=== PATIENT | male | born 1945 | race Hispanic/Latino ===

== ENCOUNTER 2019-03-25 09:32 | Emergency (ER) | payer MEDICARE ==
[2019-03-25 10:06] LABS: #Eosinphils 0.1 thou/uL (0.0-0.7); #Lymphocytes 0.4 thou/uL (1.20-3.40); #Monocytes 0.3 thou/uL (0.11-0.59); #Neutrophils 5.2 thou/uL (1.40-6.50); %Basophils 0.3 % (0.0-1.0); %Eosinophils 1.1 % (0.0-10.0); %Lymphocytes 7.2 % (21.0-51.0); %Monocytes 4.4 % (0.0-10.0); Hemoglobin 10.4 g/dL (14.0-18.0); Mean Corpuscular Hemoglobin 28.8 pg (27.0-31.0); Mean Corpuscular Volume 84.6 fL (78.0-98.0); Mean Platelet Volume 7.4 fL (7.4-10.4); Platelet Count 137 thou/uL (130-400); RBC Distribution Width 17.8 % (11.5-14.5); Red Blood Cell (RBC) Count 3.62 mill/uL (4.70-6.10); White Blood Cell (WBC) Count 5.9 thou/uL (4.8-10.8)
[2019-03-25 10:24] LABS: Anion Gap 17 mmol/L (10-20); BUN (Urea Nitrogen) 29 mg/dL (8.4-25.7); Calc. Creatinine Clearance 0 mL/min (70-130); Calcium 9.1 mg/dL (7.8-10.44); Carbon Dioxide 20 mmol/L (23-31); Chloride 100 mmol/L (98-107); Estimated GFR-MDRD 47; Glucose 173 mg/dL (83-110); Potassium 4.3 mmol/L (3.5-5.1); Sodium 133 mmol/L (136-145)
[2019-03-25 10:48] LABS: Bacteria/HPF 1+ HPF (None Seen); Bilirubin Negative (Negative); Blood, Urine Negative (Negative); Clarity Clear (Clear); Glucose, Urine (Dipstick) Normal (Negative); Leukocyte 25 Leu/uL (Negative); Nitrite Negative (Negative); Protein, Urine (Dipstick) 20 mg/dL (Neg-Trace); RBC/HPF 0-3 HPF (0-3); Squamous Epithelial 0-3 HPF (0-3); Urobilinogen Normal mg/dL (Less than 2)
== END 2019-03-25 11:15 | disposition home or self-care (01) ==
LOC: ERS 09:32
DX: Z00.00 Encounter for general adult medical examination without abnormal findings (principal); R00.0 Tachycardia, unspecified
CPT/HCPCS: 36415; 80048; 81003; 81015; 85025; 87086; 93005; 96360

== ENCOUNTER 2019-04-22 08:57 | Emergency (ER) | payer MEDICARE ==
--- NOTE | 2019-04-22 10:03 | RAD ---
Frontal radiograph chest: 04/22/2019 COMPARISON: 04/18/2017 HISTORY: Shortness of breath, dyspnea FINDINGS: As seen on the prior examination, there is mild linear density in the left base with blunti ng of the left costophrenic angle. No pneumothorax, lobar consolidation, or alveolar edema. IMPRESSION: Stable appearance of the chest-no acute findings.
[2019-04-22 10:05] LABS: #Eosinphils 0.1 thou/uL (0.0-0.7); #Lymphocytes 0.4 thou/uL (1.20-3.40); #Monocytes 0.1 thou/uL (0.11-0.59); #Neutrophils 6.7 thou/uL (1.40-6.50); %Basophils 0.4 % (0.0-1.0); %Lymphocytes 4.9 % (21.0-51.0); %Monocytes 1.8 % (0.0-10.0); %Neutrophils 91.9 % (42.0-75.0); Hemoglobin 8.6 g/dL (14.0-18.0); Mean Corpuscular HGB CONC 34.2 g/dL (32.0-36.0); Mean Corpuscular Hemoglobin 26.8 pg (27.0-31.0); Mean Corpuscular Volume 78.5 fL (78.0-98.0); Mean Platelet Volume 7.5 fL (7.4-10.4); Platelet Count 239 thou/uL (130-400); RBC Distribution Width 15.4 % (11.5-14.5); Red Blood Cell (RBC) Count 3.21 mill/uL (4.70-6.10); White Blood Cell (WBC) Count 7.3 thou/uL (4.8-10.8)
[2019-04-22 10:08] LABS: INR-International Normal Ratio 1.2; PTT 34.1 SEC (22.9-36.1); Prothrombin Time 15.6 SEC (12.0-14.7)
[2019-04-22 10:24] LABS: ALT (SGPT) 8 U/L (8-55); AST (SGOT) 10 U/L (5-34); Albumin 3.4 g/dL (3.4-4.8); Alkaline Phosphatase 85 U/L (40-150); Anion Gap 18 mmol/L (10-20); BUN (Urea Nitrogen) 13 mg/dL (8.4-25.7); Bilirubin, Total 0.5 mg/dL (0.2-1.2); Calc. Creatinine Clearance 0 mL/min (70-130); Calcium 8.8 mg/dL (7.8-10.44); Carbon Dioxide 13 mmol/L (23-31); Chloride 102 mmol/L (98-107); Estimated GFR-MDRD 50; Globulin 2.6 g/dL (2.4-3.5); Glucose 122 mg/dL (83-110); Sodium 129 mmol/L (136-145)
[2019-04-22 11:06] LABS: Bilirubin Negative (Negative); Blood, Urine Negative (Negative); Clarity Clear (Clear); Glucose, Urine (Dipstick) Normal (Negative); Leukocyte 75 Leu/uL (Negative); Nitrite Negative (Negative); Protein, Urine (Dipstick) Negative (Neg-Trace); RBC/HPF 0-3 HPF (0-3); Squamous Epithelial 0-3 HPF (0-3); Urobilinogen Normal mg/dL (Less than 2); WBC/HPF 0-3 HPF (0-3)
[2019-04-22 11:25] LABS: Bacteria/HPF 1+ HPF (None Seen)
[2019-04-27 22:18] LABS: CMV DNA-PCR Test Negative (Negative)
== END 2019-04-22 17:00 | disposition short-term general hospital (02) ==
LOC: ERS 08:57
DX: E86.0 Dehydration (principal); R06.00 Dyspnea, unspecified; R53.83 Other fatigue; I10 Essential (primary) hypertension; K74.60 Unspecified cirrhosis of liver; Z79.891 Long term (current) use of opiate analgesic; Z79.899 Other long term (current) drug therapy; Z79.82 Long term (current) use of aspirin
CPT/HCPCS: 36415; 71045; 80053; 81003; 81015; 83880; 84484; 85025; 85610; 85730; 87497; 93005; 96360

== ENCOUNTER 2019-05-20 19:56 | Emergency (ER) | payer MEDICARE ==
[2019-05-20] MEDS ORDERED: Piperacillin/Tazobactam 4.5 GM VIAL ONE (20:47)
[2019-05-20 20:56] LABS: #Eosinphils 0.1 thou/uL (0.0-0.7); #Lymphocytes 0.6 thou/uL (1.20-3.40); #Monocytes 0.2 thou/uL (0.11-0.59); #Neutrophils 10.4 thou/uL (1.40-6.50); %Basophils 0.2 % (0.0-1.0); %Eosinophils 0.5 % (0.0-10.0); %Lymphocytes 5.6 % (21.0-51.0); %Monocytes 1.7 % (0.0-10.0); %Neutrophils 91.9 % (42.0-75.0); Hemoglobin 10.3 g/dL (14.0-18.0); Mean Corpuscular Hemoglobin 25.9 pg (27.0-31.0); Mean Corpuscular Volume 76.2 fL (78.0-98.0); Mean Platelet Volume 9.3 fL (7.4-10.4); Platelet Count 167 thou/uL (130-400); RBC Distribution Width 16.8 % (11.5-14.5); Red Blood Cell (RBC) Count 3.97 mill/uL (4.70-6.10); White Blood Cell (WBC) Count 11.4 thou/uL (4.8-10.8)
[2019-05-20 21:16] LABS: ALT (SGPT) 12 U/L (8-55); AST (SGOT) 9 U/L (5-34); Albumin 3.9 g/dL (3.4-4.8); Alkaline Phosphatase 101 U/L (40-150); Anion Gap 14 mmol/L (10-20); BUN (Urea Nitrogen) 14 mg/dL (8.4-25.7); Bilirubin, Total 0.8 mg/dL (0.2-1.2); Calc. Creatinine Clearance 0 mL/min (70-130); Calcium 9.5 mg/dL (7.8-10.44); Carbon Dioxide 21 mmol/L (23-31); Chloride 101 mmol/L (98-107); Estimated GFR-MDRD 61; Globulin 3.3 g/dL (2.4-3.5); Glucose 181 mg/dL (83-110); Potassium 3.8 mmol/L (3.5-5.1); Protein, Total 7.2 g/dL (5.8-8.1); Sodium 132 mmol/L (136-145)
--- NOTE | 2019-05-20 21:26 | RAD ---
PORTABLE CHEST ONE VIEW: 05/20/19 at 8:37 p.m. HISTORY: Shortness of breath and chest pain. FINDINGS/IMPRESSION: Comparison made to exam of 04/22/19. The heart size is borderline. There is continued blunting of the left costophrenic angle. No lobar co nsolidation, pneumothoraces, ramiro pulmonary edema or large effusions are seen. POS: H
[2019-05-21 01:10] LABS: Lactic Acid 0.9 mmol/L (0.5-2.2)
== END 2019-05-21 01:27 | disposition short-term general hospital (02) ==
LOC: ERS 19:56
DX: R00.0 Tachycardia, unspecified (principal); R50.9 Fever, unspecified; R05 Cough; I10 Essential (primary) hypertension; Z79.82 Long term (current) use of aspirin; Z79.899 Other long term (current) drug therapy
CPT/HCPCS: 36415; 71045; 80053; 83605; 84484; 85025; 87040; 93005; 96360; 96365; 96367; J2543; J3370

== ENCOUNTER 2019-06-04 12:26 | Emergency (ER) | payer MEDICARE ==
[2019-06-04 13:34] LABS: Hemoglobin 8.1 g/dL (14.0-18.0); Mean Corpuscular HGB CONC 34.1 g/dL (32.0-36.0); Mean Corpuscular Hemoglobin 25.1 pg (27.0-31.0); Mean Corpuscular Volume 73.7 fL (78.0-98.0); RBC Distribution Width 17.2 % (11.5-14.5); Red Blood Cell (RBC) Count 3.24 mill/uL (4.70-6.10); White Blood Cell (WBC) Count 6.8 thou/uL (4.8-10.8)
--- NOTE | 2019-06-04 13:37 | RAD ---
2 VIEW CHEST: Date: 06/04/19 HISTORY: Cough. Comparison made to prior chest of 05/20/19 and 04/18/17. FINDINGS: Opacity at the left CP angle is a stable finding. The lungs appear clear with no evidence of infiltra te. No vascular congestion. Heart size stable. IMPRESSION: No evidence of acute process. POS: OFF
[2019-06-04 13:50] LABS: #Eosinphils 0.1 thou/uL (0.0-0.7); #Lymphocytes 0.4 thou/uL (1.20-3.40); #Monocytes 0.2 thou/uL (0.11-0.59); #Neutrophils 6.2 thou/uL (1.40-6.50); %Eosinophils 1.5 % (0.0-10.0); %Lymphocytes 5.3 % (21.0-51.0); %Monocytes 2.4 % (0.0-10.0); %Neutrophils 90.9 % (42.0-75.0); Anisocytosis SLIGHT = 6-15 cells (100X) (0-5/hpf); Elliptocytes SLIGHT = 2-5 cells (100X) (0-1/hpf); Hypochromia SLIGHT = 6-15 cells (100X) (0-5/hpf); MDiff Complete? YES; Microcytosis SLIGHT = 6-15 cells (100X) (0-5/hpf); Platelet Count 303 thou/uL (130-400); Platelet Morphology Comment Appears Adequate
[2019-06-04 13:56] LABS: ALT (SGPT) 11 U/L (8-55); AST (SGOT) 9 U/L (5-34); Albumin 3.8 g/dL (3.4-4.8); Alkaline Phosphatase 95 U/L (40-150); Anion Gap 14 mmol/L (10-20); BUN (Urea Nitrogen) 19 mg/dL (8.4-25.7); Bilirubin, Total 0.2 mg/dL (0.2-1.2); CK (CPK) 26 U/L (30-200); Calc. Creatinine Clearance 0 mL/min (70-130); Calcium 9.3 mg/dL (7.8-10.44); Carbon Dioxide 19 mmol/L (23-31); Chloride 102 mmol/L (98-107); Estimated GFR-MDRD 35; Globulin 3.7 g/dL (2.4-3.5); Glucose 174 mg/dL (83-110); Potassium 4.3 mmol/L (3.5-5.1); Protein, Total 7.5 g/dL (5.8-8.1); Sodium 131 mmol/L (136-145)
== END 2019-06-04 16:05 | disposition home or self-care (01) ==
LOC: ERS 12:26
DX: R05 Cough (principal); R06.00 Dyspnea, unspecified; I10 Essential (primary) hypertension; Z79.899 Other long term (current) drug therapy; Z79.82 Long term (current) use of aspirin
CPT/HCPCS: 71046; 80053; 82550; 83605; 83880; 84484; 85025; 93005

== ENCOUNTER 2019-06-06 18:30 | Inpatient (IN) | payer MEDICARE ==
[2019-06-06 19:29] LABS: #Eosinphils 0.1 thou/uL (0.0-0.7); #Lymphocytes 0.5 thou/uL (1.20-3.40); #Monocytes 0.1 thou/uL (0.11-0.59); #Neutrophils 4.7 thou/uL (1.40-6.50); %Basophils 0.7 % (0.0-1.0); %Eosinophils 1.5 % (0.0-10.0); %Lymphocytes 8.4 % (21.0-51.0); %Neutrophils 87.4 % (42.0-75.0); Hemoglobin 6.7 g/dL (14.0-18.0); Mean Corpuscular HGB CONC 33.7 g/dL (32.0-36.0); Mean Corpuscular Hemoglobin 24.6 pg (27.0-31.0); Mean Corpuscular Volume 72.9 fL (78.0-98.0); Mean Platelet Volume 7.1 fL (7.4-10.4); Platelet Count 310 thou/uL (130-400); RBC Distribution Width 17.4 % (11.5-14.5); Red Blood Cell (RBC) Count 2.73 mill/uL (4.70-6.10); White Blood Cell (WBC) Count 5.4 thou/uL (4.8-10.8)
[2019-06-06 19:44] LABS: ALT (SGPT) 9 U/L (8-55); AST (SGOT) 11 U/L (5-34); Albumin 3.6 g/dL (3.4-4.8); Alkaline Phosphatase 93 U/L (40-150); Anion Gap 11 mmol/L (10-20); BUN (Urea Nitrogen) 18 mg/dL (8.4-25.7); Bilirubin, Total 0.2 mg/dL (0.2-1.2); Calc. Creatinine Clearance 0 mL/min (70-130); Calcium 8.1 mg/dL (7.8-10.44); Carbon Dioxide 21 mmol/L (23-31); Chloride 96 mmol/L (98-107); Estimated GFR-MDRD 47; Globulin 2.7 g/dL (2.4-3.5); Glucose 110 mg/dL (83-110); Potassium 4.4 mmol/L (3.5-5.1); Protein, Total 6.3 g/dL (5.8-8.1); Sodium 124 mmol/L (136-145)
--- NOTE | 2019-06-06 22:50 | PDOC.FPRHP ---
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 Pt states he was admitted to [facility] a month ago for PNA. Reports that since that time he has had a productive cough of thick white sputum. Associated mild nasal congestion and dyspnea, rhinorrhea worse with meals, and subjective chills. No fever, n/v, chest pain, abdominal pollack, urinary sxs. He does report a chronic diarrhea of 1-2 non-bloody loose stool dailys. He states he hasn't been able to sleep much 2/2 the cough constantly waking him up. Pt presented to [facility] ED 2 days ago for similar sxs, was given albuterol neb but has not gotten rx for gave at time. No OTC medications for cough. ED Course: In the ED, he was found to have Hb of 6.7, down from 8.1 on 06/04 and 10 on . Denies any hematuria, hematochezia, melena, hematemesis, or easy bruising or bleeding. No recent trauma. He was given 1u pRBC. Endoscopy prior to transplant per records demonstrated varices and benign colon polyps. [facility], his transplant hospital, was called for transfer, however ED was told they did not have a bed currently and to admit the patient for management and to attempt transfer again in the morning. Pt was hemodynamically stable throughout his ED course. lookback coordinator - Lili [phone] - Allergies/Adverse Reactions Allergies Allergy/AdvReac Type Severity Reaction Status Date / Time No Known Allergies Allergy Unverified 06/06/19 23:00 - Home Medications Medication Instructions Recorded Confirmed Type Tamsulosin HCl [Flomax] 0.8 mg PO DAILY 05/17/14 06/07/19 History Aspirin [Ecotrin] 81 mg PO DAILY 06/06/19 06/07/19 History Atovaquone 1,500 mg PO DAILY 06/06/19 06/07/19 History Everolimus [Zortress] 1 mg PO BID 06/06/19 06/07/19 History Fluconazole 400 mg PO DAILY 06/06/19 06/07/19 History HumaLOG 0 unit SC TID-WM 06/06/19 06/07/19 History Isoniazid 300 mg PO DAILY 06/06/19 06/07/19 History Linagliptin [Tradjenta] 5 mg PO DAILY 06/06/19 06/07/19 History Pantoprazole [Protonix] 40 mg PO DAILY 06/06/19 06/07/19 History Pyridoxine HCl (Vitamin B6) 50 mg PO DAILY 06/06/19 06/07/19 History [Pyridoxine HCl] Tacrolimus [Prograf] 0.5 mg PO QAM 06/06/19 06/07/19 History Tacrolimus [Prograf] 1 mg PO QPM 06/06/19 06/07/19 History Ursodiol 300 mg PO BID 06/06/19 06/07/19 History predniSONE [Prednisone] 10 mg PO DAILY 06/06/19 06/07/19 History valGANciclovir HCl 450 mg PO DAILY 06/06/19 06/07/19 History - History PMHx: Liver Transplant (02/2019) 2/2 alcoholic cirrhosis, GERD, HTN, DMII on Insulin, Latent TD, Latent Syphilis PSHx: Liver Transplant (02/2019), Umbilical Hernia repair FHx: Diabetes Social: Smoked a long time ago for about 10 years, Denies current EtOh use, previous h/o of alcoholism. Denies illicit drug use. - Review of Systems General: reports: fever/chills. denies: weight/appetite/sleep changes, night sweats, fatigue Eyes: denies: eye pain ENT: reports: nasal congestion, rhinorrhea Respiratory: reports: cough, congestion, shortness of breath Cardiovascular: denies: chest pain, palpitation, edema Gastrointestinal: reports: diarrhea. denies: nausea, vomiting, constipation, abdominal pain, GI bleeding Genitourinary: denies: incontinence, dysuria Skin: denies: rashes, lesions, jaundice Musculoskeletal: denies: pain Neurological: denies: numbness, weakness - Vital signs BP: [132/60] HR: [87] RR: [16] Tmax: [98.3] Pox: [98]% on [RA] Wt: [81kg] - Physical Exam Constitutional: NAD, awake, alert and oriented HEENT: PERRLA, EOMI, conjunctiva clear, MMM, oropharynx clear Neck: supple, trachea midline Heart: RRR, normal S1/S2, no murmurs/rubs/gallops, pulses present, no edema Lungs: CTAB, no respiratory distress, good air movement, no rales/rhonchi, no wheezing Abdomen: soft, non-tender, bowel sounds present, no masses/distention, other ( large abdominal scar) Musculoskeletal: normal structure Neurological: no focal deficit, CN II-XII intact Skin: no rash/lesions, capillary refill <2 seconds Heme/Lymphatic: no unusual bruising or bleeding, no purpura, no petechia Psychiatric: normal mood and affect, good judgment and insight, intact recent and remote memory FMR H&P: Results - Labs Result Diagrams: 06/07/19 01:43 06/07/19 01:43 Lab results: WBC 5.4 thou/uL (4.8-10.8) 06/06/19 19:06 Hgb 6.7 g/dL (14.0-18.0) L 06/06/19 19:06 Hct 19.9 % (42.0-52.0) L 06/06/19 19:06 MCV 72.9 fL (78.0-98.0) L 06/06/19 19:06 Plt Count 310 thou/uL (130-400) 06/06/19 19:06 Neutrophils % 87.4 % (42.0-75.0) H 06/06/19 19:06 Sodium 124 mmol/L (136-145) L 06/06/19 19:06 Potassium 4.4 mmol/L (3.5-5.1) 06/06/19 19:06 Chloride 96 mmol/L (98-107) L 06/06/19 19:06 Carbon Dioxide 21 mmol/L (23-31) L 06/06/19 19:06 BUN 18 mg/dL (8.4-25.7) 06/06/19 19:06 Creatinine 1.46 mg/dL (0.7-1.3) H 06/06/19 19:06 Glucose 110 mg/dL (83-110) 06/06/19 19:06 Calcium 8.1 mg/dL (7.8-10.44) 06/06/19 19:06 Total Bilirubin 0.2 mg/dL (0.2-1.2) 06/06/19 19:06 AST 11 U/L (5-34) 06/06/19 19:06 ALT 9 U/L (8-55) 06/06/19 19:06 Alkaline Phosphatase 93 U/L (40-150) 06/06/19 19:06 Ammonia Less than 12 umol/L (18-72) L 06/06/19 19:06 B-Natriuretic Peptide 43.5 pg/mL (0-100) 06/06/19 19:06 Serum Total Protein 6.3 g/dL (5.8-8.1) 06/06/19 19:06 Albumin 3.6 g/dL (3.4-4.8) 06/06/19 19:06 Lipase 6 U/L (8-78) L 06/06/19 19:06 FMR H&P: A/P - Problem List (1) Cough Current Visit: Yes Status: Acute Code(s): R05 - COUGH (2) Hyponatremia Current Visit: Yes Status: Acute Code(s): E87.1 - HYPO-OSMOLALITY AND HYPONATREMIA (3) Anemia Current Visit: Yes Status: Acute Code(s): D64.9 - ANEMIA, UNSPECIFIED (4) CKD (chronic kidney disease) stage 3, GFR 30-59 ml/min Current Visit: Yes Status: Chronic Code(s): N18.3 - CHRONIC KIDNEY DISEASE, STAGE 3 (MODERATE) (5) History of liver transplant Current Visit: Yes Status: Chronic Code(s): Z94.4 - LIVER TRANSPLANT STATUS (6) Insulin dependent diabetes mellitus Current Visit: Yes Status: Chronic Code(s): E11.9 - TYPE 2 DIABETES MELLITUS WITHOUT COMPLICATIONS; Z79.4 - SKILLED NURSING (CURRENT) USE OF INSULIN (7) GERD (gastroesophageal reflux disease) Current Visit: Yes Status: Chronic Code(s): K21.9 - GASTRO-ESOPHAGEAL REFLUX DISEASE WITHOUT ESOPHAGITIS - Plan 74yo male with h/o alcoholic cirrhosis s/p liver transplant on 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 Mcgraw, apprec recs #Hyponatremia - Na 124, was 133 on prior labs - appears euvolemic, will obtain Ur Osm and Na as well as Serum Osm - monitor with daily BMP #Cough, post-PNA vs GERD - CXR from 06/04 WNL, VSS, afebrile, chronic cough since PNA admission approx 1 month ago at [facility] - Perry rojas prn - Will monitor clinical status - Will obtain UA, UCx, and BCx to r/o infx #S/p Liver transplant 03/03/19 - [facility] - continue antirejection meds and ppx medications - will plan for transfer in AM once bed available #IDDMII - hyperglycemia protocol, mild SS, ACHS accuchecks, will monitor and adjust as needed #GERD - continue home protonix #Latent TB - cont isoniazid #BPH - continue home Flomax Diet: CC VTE: SCDs - acute blood loss contraindication for lovenox Code: Full Disposition/LOS: Admit to tele, tranfuse 1u pRBC, monitor VS and for acute s/s bleed, anticipate transfer to [facility] when bed available. FMR H&P: Upper Level - Pertinent history I was present with the tax intern for the HPI and scribed the above document. I agree with the above hpi - Pertinent findings No pertinent physical exam findings - Plan Date/Time: 06/06/19 2250 I, Demario Rasheed PGY-3, have evaluated this patient and agree with findings/ plan as outlined by tax intern resident. Pertinent changes/additions are listed here. At this time we will admit pt until we can txfer to [facility] where his liver transplant specialist are. Pt came in for chronic cough s/p tx for PNA a month ago. We will add on perry pedroza. We are awaiting CXR. We will get blood cultures. Will trend labs. At this time it was noted pt Hgb dropped from 8.1->6.7 over two days. Denies any signs of bleeding anywhere. He is being transfused 1uPRBC. We will trench CBC. Pt has hx of varices in the past. Had liver transplant a month ago. 2016 colonoscopy done at [facility]& only showed some small polyps. We have consulted GI- Dr. Mcgraw. Will follow recs. He mentioned that his prograf could be causing the anemia. Will draw up labs and follow. See above for in depth plan. Addendum - Attending - Attending Attestation Date/Time: 06/07/19 2811 I personally evaluated the patient and discussed the management with Dr. 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 Pt states he was admitted to [facility] a month ago for PNA. Reports that since that time he has had a productive cough of thick white sputum. Denies any fever, chest pain, pedal edema, (+) nasal congestion. States that cough keeps him awake at night. Denies any hematochezia, hematemesisPMH/PSH/Meds/SH reviewed and agree with resident's documentation. Afebrile BP 132/60 P87 RR16 98%RA Exam repeated by me and agree with resident's findings. Labs: WBC=5.4, H/H=6.7/19.9, Twn=236, Mg=751, K= 4.4, Cl=96, CO2=21, BUN/Cr=18/1.46, Dief=071, BNP=43.5, Ammonia<12, AST/ALT=11/ 9 CXR (06/04/19) no acute disease. A/P): 1) Anemia- possibly secondary to bone marrow suppression from prograf vs GI bleed- Admit to tele. Transfusion started by ER. Will recheck an H/H post-transfusion. 2) Hyponatremia - Will check urine studies to evaluate for cause/etiology. 3) S/p liver transplant - continue antirejection meds; coordinate care with certified wellness program coordinator in [place]. 4) HTN- stable
[2019-06-06] MEDS ORDERED: Calcium Carbonate 500 MG ChewTAB PO PRN (23:19)
[2019-06-06] MEDS ORDERED: Dextrose 5% in Water 1,000 ML IV PRN (23:19)
[2019-06-06] MEDS ORDERED: Dextrose 50% Abboject 50 ML SYRINGE SLOW IVP PRN (23:19)
[2019-06-06] MEDS ORDERED: HumaLOG 300 UNITS/3 ML VIAL SC PRN (23:26)
[2019-06-06] MEDS ORDERED: Benzonatate 100 MG CAP PO PRN (23:29)
[2019-06-06 23:35] LABS: Troponin I Less than 0.010 ng/mL (< 0.028)
[2019-06-06 23:59] LABS: INR-International Normal Ratio 1.1; Prothrombin Time 14.7 SEC (12.0-14.7)
[2019-06-07] LABS: PTT 40.9 SEC (22.9-36.1)
[2019-06-07 00:07] LABS: Iron 14 ug/dL (65-175); Iron Binding Capacity, Total 143 mcg/dL (261-462)
[2019-06-07 01:53] LABS: #Eosinphils 0.1 thou/uL (0.0-0.7); #Lymphocytes 0.4 thou/uL (1.20-3.40); #Monocytes 0.1 thou/uL (0.11-0.59); #Neutrophils 5.8 thou/uL (1.40-6.50); %Basophils 0.4 % (0.0-1.0); %Eosinophils 0.9 % (0.0-10.0); %Lymphocytes 6.3 % (21.0-51.0); %Monocytes 0.9 % (0.0-10.0); %Neutrophils 91.6 % (42.0-75.0); Mean Corpuscular HGB CONC 33.2 g/dL (32.0-36.0); Mean Corpuscular Hemoglobin 25.4 pg (27.0-31.0); Mean Corpuscular Volume 76.7 fL (78.0-98.0); Mean Platelet Volume 6.7 fL (7.4-10.4); Platelet Count 276 thou/uL (130-400); Red Blood Cell (RBC) Count 3.15 mill/uL (4.70-6.10); White Blood Cell (WBC) Count 6.3 thou/uL (4.8-10.8)
[2019-06-07 02:07] LABS: INR-International Normal Ratio 1.2; PTT 34.2 SEC (22.9-36.1); Prothrombin Time 15.1 SEC (12.0-14.7)
[2019-06-07 02:15] LABS: Troponin I Less than 0.010 ng/mL (< 0.028)
[2019-06-07 02:39] LABS: Anion Gap 13 mmol/L (10-20); BUN (Urea Nitrogen) 16 mg/dL (8.4-25.7); Calc. Creatinine Clearance 0 mL/min (70-130); Carbon Dioxide 19 mmol/L (23-31); Chloride 99 mmol/L (98-107); Estimated GFR-MDRD 55; Potassium 4.2 mmol/L (3.5-5.1); Sodium 127 mmol/L (136-145)
[2019-06-07 02:40] LABS: ALT (SGPT) 7 U/L (8-55); AST (SGOT) 8 U/L (5-34); Albumin 3.3 g/dL (3.4-4.8); Alkaline Phosphatase 87 U/L (40-150); Bilirubin, Total 0.5 mg/dL (0.2-1.2); Calcium 8.6 mg/dL (7.8-10.44); Globulin 3.2 g/dL (2.4-3.5); Glucose 109 mg/dL (83-110); Protein, Total 6.5 g/dL (5.8-8.1)
--- NOTE | 2019-06-07 05:55 | PDOC.FM ---
- Subjective Subjective: Pt has had 3 BM of diarrhea overnight and he was going to the bathroom for another BM after examination. He says he has not eaten in 3 days, due to lack of appetite. He has no abdominal pain. He has a cough, but he states it has improved since admission. 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 1. Anemia, GI bleed vs anemia of chronic disease * h/o varices prior to transplant, acute drop in Hb from 10->6.3 over 3 week prior, no acute s/s of blood loss and VSS * h/o CKD III on prograf, possible contributing to anemia * Transfused 1u pRBC, Hgb 8 * monitor for s/s of acute bleed * iron studies: pending * PT 14.7, INR 1.1, PTT 40.9. PTT slightly elevated relating to intrinsic pathway defect. * Will obtain FOBT x3 * Consult GI, Dr. Mcgraw, apprec recs. 2. Hyponatremia * Admission Na 124, was 133 on prior labs, currently 127 * appears euvolemic, will obtain Ur Osm and Na as well as Serum Osm * monitor with daily BMP 3. Cough, post-PNA vs GERD * CXR from 06/04 WNL, VSS, afebrile, chronic cough since PNA admission approx 1 month ago at [facility] * Alethea rojas prn * Will monitor clinical status * UA, UCx, and BCx: pending 4. S/p Liver transplant 03/03/19 * [facility] * continue antirejection meds and ppx medications * Called for transfer this morning, which is being coordinated by the transfer center 5. IDDMII * hyperglycemia protocol, mild SS, ACHS accuchecks, will monitor and adjust as needed 6. GERD * continue home protonix 7. Latent TB * cont isoniazid 8. BPH * continue home Flomax Diet: CC VTE PPx: SCDs - acute blood loss contraindication for lovenox Code Status: Full Disposition: Tranfused 1u pRBC, monitor VS and for acute s/s bleed, anticipate transfer to [facility] when bed available. Addendum - Attending - Attending Attestation Date/Time: 06/07/19 8230 I personally evaluated the patient and discussed the management with Dr. Chowdhury. I agree with the History, Examination, Assessment and Plan documented above with any addition or exceptions noted below. Patient asymptomatic except chronic cough. No malaise, headache, vision changes , abd pain, n/v/f/c. His exam reveals a coughing gentleman, well kept, with a large well-healed abdominal scar. Chronic cough in setting of latent TB on INH/b6, s/p liver transplant on tacro/ everolimus and atovaquone pcp ppx. -continue home meds, send taco/evero levels if he stays additional time Hyponatremia -?2/2 meds, liver disease, pulm process -2L fluid restriction and monitor Anemia -s/p 1 u prbc, no s/s of active bleeding -fobt pending Hopeful xfer today.
[2019-06-07] MEDS ORDERED: predniSONE 20 MG TAB PO SCH (08:00)
[2019-06-07] MEDS ORDERED: EVEROLIMUS 1 MG PO SCH (09:00)
[2019-06-07] MEDS ORDERED: Ursodiol 300 MG CAP PO SCH (09:00)
[2019-06-07] MEDS ORDERED: pyridOXINE 50 MG (B6) TAB PO SCH (09:00)
[2019-06-07] MEDS ORDERED: Tamsulosin HCl 0.4 MG CAP PO SCH (09:00)
[2019-06-07] MEDS ORDERED: Tacrolimus 0.5 MG CAP PO SCH (09:00)
[2019-06-07] MEDS ORDERED: Non-Formulary Item 1 EACH (Linagliptin [Tradjenta] 5 MG) PO SCH (09:00)
[2019-06-07] MEDS ORDERED: Isoniazid 100 MG TAB PO SCH (09:00)
[2019-06-07] MEDS ORDERED: Atovaquone 750 MG/5 ML UDCUP PO SCH (09:00)
[2019-06-07] MEDS ORDERED: Tacrolimus 1 MG CAP PO SCH (21:00)
--- NOTE | 2019-06-09 07:28 | RAD ---
CHEST 1 VIEW: Date: 06/06/19 INDICATION: History of cough. COMPARISON: Prior exam dated 06/04/19. FINDINGS: No consolidation is evident. Small left pleural effusion persists. Heart size is normal. Right lung i s clear. No acute osseous abnormality is evident. IMPRESSION: Persistent left-sided pleural effusion. POS: BH
--- NOTE | 2019-06-10 10:34 | DIS ---
DATE OF ADMISSION: 06/06/2019 DATE OF DISCHARGE: 06/07/2019 RESIDENT: Parker Chowdhury MD ADMITTING ATTENDING: Sharon Pineda MD DISCHARGE ATTENDING: Kolton Warren MD CONSULTS: [facility]. PROCEDURES: Chest x-ray shows persistent left-sided pleural effusion on 06/06. PRIMARY DIAGNOSES: * Hyponatremia * chronic kidney disease * history of liver transplant. SECONDARY DIAGNOSES: * Anemia * diabetes * gastroesophageal reflux disease. DISCHARGE MEDICATIONS: None. Continue home medications. DISCONTINUED MEDICATIONS: None. HISTORY OF PRESENT ILLNESS: A 74-year-old male with history of alcoholic cirrhosis status post liver transplant on 03/03/2019, latent TB and syphilis, CKD 3, and diabetes type 2, who presents for cough x1 month. The patient states he was admitted to the [facility] a month ago for pneumonia, reports that since this time, he had a productive cough with thick white sputum, associated mild nasal congestion and dyspnea, rhinorrhea worse with meals and subjective chills. No fever, nausea, vomiting, chest pain, abdominal pain, urinary symptoms. He does report chronic diarrhea with 1-2 nonbloody loose stools daily. He states he has not been able to sleep much secondary to the cough constantly waking him up. The patient presented to [place] ED 2 days ago for similar symptoms, was given albuterol nebs, but has not gotten a prescription for it, he did not take any ojao-nji-euhjyfo medications for cough. In the ED, he was found to have a hemoglobin of 6.7, down from 8.1 on 06/04, and 10 on 05/20. Denies any hematuria, hematochezia, melena, hematemesis, or easy bruising or bleeding. No recent trauma. He was given 1 unit of packed red blood cells. Endoscopy prior to transplant per records demonstrated varices and benign colon polyp. [facility], his transplant hospital was called for transfer, however, ED was told they did not have a bed currently and admit the patient for management and to attempt transfer again in the morning. The patient was hemodynamically stable throughout his ED course. 1. Anemia- GI bleed versus anemia of chronic disease. * History of varices prior to transplant. * Acute drop in hemoglobin from 10 to 6.3, that was 3 weeks prior. * No acute symptoms of blood loss and vital signs are stable. * History of CKD, on Prograf possibly contributing to anemia. * Transfuse 1 unit of packed red blood cells. * Hemoglobin 8 after transfusion. * Iron studies showed iron deficiency anemia. * PTT was slightly elevated prior to transfusion, but corrected with blood. * Consulted GI, Dr. Mcgraw. Appreciate recs. 2. Hyponatremia. * On admission, sodium 124, was 133 on prior labs, left hospital with a sodium of 127. 3. Cough, post pneumonia versus GERD. * Chest x-ray from 06/04 within normal limits. * Vital signs stable. * Afebrile * Pneumonia on admission approximately 1 month ago at [facility]. * Tessalon Perles given for symptom relief 4. Status post liver transplant. * Transfer to [facility]. * Continue anti-rejection medications and prophylaxis medications. 5. Diabetes. * Continue home insulin regimen. 6. GERD. * Continue home Protonix. 7. Latent TB * Continue isoniazid. 8. BPH. * Continue home Flomax. DISPOSITION: Stable. DISCHARGE: The patient was transferred to the [facility] on 06/07. Job ID: [id number] MTDD
--- NOTE | 2019-06-11 13:52 | EKG ---
Test Reason : Blood Pressure : / mmHG Vent. Rate : 088 BPM Atrial Rate : 088 BPM P-R Int : 168 ms QRS Dur : 068 ms QT Int : 358 ms P-R-T Axes : -10 013 025 degrees QTc Int : 433 ms Normal sinus rhythm Cannot rule out Anterior infarct , age undetermined Abnormal ECG Confirmed by DEON STILES MD ([id number]), web editor MARLYS CEBALLOS ([id number]) on 06/11/2019 1:52:12 PM Referred By: Confirmed By:DEON STILES MD
== END 2019-06-07 14:14 | disposition short-term general hospital (02) | DRG 812 ==
LOC: ERS 18:30 → ERHOLD 22:45
PROVIDERS: ADMIT Family Medicine; ATTEND Family Medicine
PROC: 30233N1 Transfusion of Nonautologous Red Blood Cells into Peripheral Vein, Percutaneous Approach (ICD-10-PCS; principal; 2019-06-06)
DX: D50.9 Iron deficiency anemia, unspecified (principal); E87.1 Hypo-osmolality and hyponatremia; Z94.4 Liver transplant status; E11.22 Type 2 diabetes mellitus with diabetic chronic kidney disease; I12.9 Hypertensive chronic kidney disease with stage 1 through stage 4 chronic kidney disease, or unspecified chronic kidney disease; K21.9 Gastro-esophageal reflux disease without esophagitis; D63.1 Anemia in chronic kidney disease; N40.0 Benign prostatic hyperplasia without lower urinary tract symptoms; A53.0 Latent syphilis, unspecified as early or late; K63.5 Polyp of colon; N18.3 Chronic kidney disease, stage 3 (moderate); R76.11 Nonspecific reaction to tuberculin skin test without active tuberculosis; T45.1X5A Adverse effect of antineoplastic and immunosuppressive drugs, initial encounter; Z79.82 Long term (current) use of aspirin; Z79.899 Other long term (current) drug therapy; Z79.4 Long term (current) use of insulin; Z85.05 Personal history of malignant neoplasm of liver; Z87.01 Personal history of pneumonia (recurrent); Z87.891 Personal history of nicotine dependence; Z79.52 Long term (current) use of systemic steroids
CPT/HCPCS: 36415; 36416; 36430; 71045; 71046; 80053; 82140; 82550; 82728; 83540; 83550; 83605; 83690; 83880; 83930; 84484; 85025; 85610; 85730; 86850; 86900; 86901; 87040; 93005; 96360; J7507; J7512; J8499; P9016

== ENCOUNTER 2019-07-13 18:21 | Observation (INO) | payer MEDICARE, OTHER ==
[~2019-07-13 18:21] MED LIST: ISOVUE-370 76%-LOCM 1 ML ONE
[2019-07-13 19:22] LABS: #Eosinphils 0.1 thou/uL (0.0-0.7); #Lymphocytes 0.5 thou/uL (1.20-3.40); #Monocytes 0.6 thou/uL (0.11-0.59); #Neutrophils 7.2 thou/uL (1.40-6.50); %Basophils 0.3 % (0.0-1.0); %Eosinophils 1.1 % (0.0-10.0); %Neutrophils 85.6 % (42.0-75.0); Hemoglobin 6.5 g/dL (14.0-18.0); Mean Corpuscular Volume 74.3 fL (78.0-98.0); Mean Platelet Volume 10.3 fL (7.4-10.4); Platelet Count 164 thou/uL (130-400); RBC Distribution Width 23.1 % (11.5-14.5); Red Blood Cell (RBC) Count 2.84 mill/uL (4.70-6.10); White Blood Cell (WBC) Count 8.5 thou/uL (4.8-10.8)
--- NOTE | 2019-07-13 19:33 | RAD ---
AP CHEST: 07/13/19 HISTORY: Dyspnea. COMPARISON: 06/06/19. The lung yousif appear clear of infiltrate. There is mild vascular engorgement. Heart size is upper n ormal and stable. IMPRESSION: No acute lung process. POS: AGW
[2019-07-13 19:41] LABS: ALT (SGPT) Less than 7 U/L (8-55); AST (SGOT) 6 U/L (5-34); Albumin 3.7 g/dL (3.4-4.8); Alkaline Phosphatase 82 U/L (40-110); Anion Gap 14 mmol/L (10-20); Anisocytosis MODERATE=16-30 cells (100X) (0-5/hpf); BUN (Urea Nitrogen) 17 mg/dL (8.4-25.7); Bilirubin, Total 0.7 mg/dL (0.2-1.2); Calc. Creatinine Clearance 0 mL/min (70-130); Carbon Dioxide 22 mmol/L (23-31); Chloride 104 mmol/L (98-107); Elliptocytes SLIGHT = 2-5 cells (100X) (0-1/hpf); Estimated GFR-MDRD 49; Globulin 3.3 g/dL (2.4-3.5); Glucose 118 mg/dL (83-110); Hypochromia SLIGHT = 6-15 cells (100X) (0-5/hpf); MDiff Complete? YES; Microcytosis SLIGHT = 6-15 cells (100X) (0-5/hpf); Ovalocytes SLIGHT = 2-5 cells (100X) (0-1/hpf); Platelet Morphology Comment Appears Adequate; Polychromasia SLIGHT = 2-3 cells (100X) (0-2/hpf); Potassium 4.1 mmol/L (3.5-5.1); Schistocytes SLIGHT = 2-5 cells (100X) (0-1/hpf); Sodium 136 mmol/L (136-145); Spherocytes SLIGHT = 1-5 cells (100X) (None Seen)
--- NOTE | 2019-07-13 20:49 | CT ---
CTA CHEST WITH CONTRAST: 07/13/19 Axial tomograms obtained following angio protocol with multiplanar reconstruction and 3D postprocessi ng. INDICATIONS: Shortness of breath. Comparison made to a chest CT from 2008. FINDINGS: Pulmonary arteries show adequate opacification. No evidence of pulmonary embolus identified. Review of lung yousif show small effusions. Bibasilar atelectasis. Mild vascular congestion. There is bilateral hilar adenopathy with soft tissue density in both hilar regions extending along th e bronchial tubes bilaterally. Nonspecific mediastinal lymph nodes are seen. The thoracic aorta is unremarkable. No dissection. Image through upper abdomen unremarkable. No acute process apparent. IMPRESSION: 1. No evidence of pulmonary embolus. 2. No acute lung process. Bilateral hilar adenopathy with soft tissue density extending along th e bronchial tubes bilaterally producing peribronchial cuffing. Nonspecific mediastinal lymph nodes. POS: AGW
--- NOTE | 2019-07-13 21:02 | PDOC.FPRHP ---
- History of Present Illness Chief Complaint: Shortness of breath History of Present Illness: 74-year-old male with past medical history of alcoholics cirrhosis status post liver transplant in February of this year. Patient stated that he has labs drawn every Thursday per his transplant team. Lab work from this week showed that she was anemic with a hemoglobin of 6.8. They called the patient then instructed that he come to the emergency department for further evaluation. Patient stated that during this time he has been experiencing fatigue and shortness of breath. The shortness of breath has been going on for multiple weeks, he recently was started on breathing treatments for this which he feels has improved his symptoms. Patient notices that his fatigue and shortness of breath worsen with exertion. She notes a few instances of lightheadedness/dizziness that occurs when he goes from a laying position to seated or standing. Patients liver team was consulted and suggested a patient be admitted for transfusion under observation with repeat hemoglobin and evaluation of possible bleeding sources. - Allergies/Adverse Reactions Allergies Allergy/AdvReac Type Severity Reaction Status Date / Time No Known Allergies Allergy Verified 07/14/19 00:28 - Home Medications Medication Instructions Recorded Confirmed Type Tamsulosin HCl [Flomax] 0.8 mg PO HS 05/17/14 07/14/19 History Atovaquone 10 ml PO DAILY 06/06/19 07/14/19 History Everolimus [Zortress] 2 mg PO BID 06/06/19 07/14/19 History Fluconazole 400 mg PO DAILY 06/06/19 07/14/19 History HumaLOG [HumaLOG Vial] 0 unit SC TID-WM 06/06/19 07/14/19 History Isoniazid 300 mg PO DAILY 06/06/19 07/14/19 History Linagliptin [Tradjenta] 5 mg PO DAILY 06/06/19 07/14/19 History Pantoprazole [Protonix] 40 mg PO BID 06/06/19 07/14/19 History Ursodiol 300 mg PO BID 06/06/19 07/14/19 History predniSONE [Prednisone] 10 mg PO DAILY 06/06/19 07/14/19 History valGANciclovir HCl 450 mg PO DAILY 06/06/19 07/14/19 History Codeine Phosphate/Guaifenesin 5 ml PO Q4H PRN 07/13/19 07/14/19 History [Virtussin AC Liquid] Ferrous Sulfate 325 mg PO TID-WM 07/13/19 07/14/19 History Levalbuterol Tartrate 3 puff INH Q4H 07/13/19 07/14/19 History [Levalbuterol Tartrate Hfa] Ramelteon 8 mg PO HS 07/13/19 07/14/19 History Sodium Bicarbonate 650 mg PO BID 07/13/19 07/14/19 History Umeclidinium Brm/Vilanterol Tr 1 inh IH DAILY 07/13/19 07/14/19 History [Anoro Ellipta] - History PMHx: Liver Transplant (02/2019) 2/2 alcoholic cirrhosis, GERD, HTN, DMII on Insulin PSHx: Liver Transplant (02/2019), Umbilical Hernia repair FHx: Diabetes Social: Smoked a long time ago for about 10 years, Denies current EtOh use, previous h/o of alcoholism. Denies illicit drug use. - Review of Systems General: denies: fever/chills, weight/appetite/sleep changes Eyes: denies: vision changes, other ENT: denies: nasal congestion, rhinorrhea Respiratory: reports: cough (chronic), shortness of breath, exercise intolerance. denies: congestion Cardiovascular: denies: chest pain, palpitation Gastrointestinal: denies: nausea, vomiting, diarrhea, constipation, abdominal pain Genitourinary: denies: dysuria, polyuria Skin: reports: other (pale). denies: rashes, lesions Musculoskeletal: denies: pain, tenderness Neurological: denies: numbness, syncope, weakness Psychological: denies: depression, other - Vital signs BP: 118/65, Pulse: 94, Resp: 20, Temp: 98.6 (Oral), Pain: 0, O2 sat: 100 on Room Air - Physical Exam Constitutional: NAD, awake, alert and oriented, well developed HEENT: normocephalic and atraumatic, EOMI, grossly normal vision, grossly normal hearing -HEENT: pale conjunctiva Neck: FROM Heart: RRR, normal S1/S2 Lungs: CTAB, no respiratory distress, good air movement, no rales/rhonchi, no wheezing Abdomen: soft, non-tender -Abdomen: large incisional hernia, non tender and easily reducible Musculoskeletal: normal structure, normal tone Neurological: no focal deficit, CN II-XII intact Skin: no rash/lesions, good turgor -Skin: prolonged cap refill, pale skin Heme/Lymphatic: no unusual bruising or bleeding, no purpura Psychiatric: normal mood and affect, good judgment and insight, intact recent and remote memory FMR H&P: Results - Labs Result Diagrams: 07/13/19 19:04 07/13/19 19:04 Lab results: WBC 8.5 thou/uL (4.8-10.8) 07/13/19 19:04 Hgb 6.5 g/dL (14.0-18.0) L 07/13/19 19:04 Hct 21.1 % (42.0-52.0) L 07/13/19:04 MCV 74.3 fL (78.0-98.0) L 07/13/19 19:04 Plt Count 164 thou/uL (130-400) 07/13/19 19:04 Neutrophils % 85.6 % (42.0-75.0) H 07/13/19 19:04 Sodium 136 mmol/L (136-145) 07/13/19 19:04 Potassium 4.1 mmol/L (3.5-5.1) 07/13/19 19:04 Chloride 104 mmol/L (98-107) 07/13/19 19:04 Carbon Dioxide 22 mmol/L (23-31) L 07/13/19 19:04 BUN 17 mg/dL (8.4-25.7) 07/13/19 19:04 Creatinine 1.41 mg/dL (0.7-1.3) H 07/13/19 19:04 Glucose 118 mg/dL (83-110) H 07/13/19 19:04 Calcium 9.0 mg/dL (7.8-10.44) 07/13/19 19:04 Total Bilirubin 0.7 mg/dL (0.2-1.2) 07/13/19 19:04 AST 6 U/L (5-34) 07/13/19 19:04 ALT Less than 7 U/L (8-55) L 07/13/19 19:04 Alkaline Phosphatase 82 U/L (40-110) 07/13/19 19:04 Serum Total Protein 7.0 g/dL (5.8-8.1) 07/13/19 19:04 Albumin 3.7 g/dL (3.4-4.8) 07/13/19 19:04 - EKG Interpretation EKG: sinus tachycardia, Rate (beats per minute): 101, with infrequent premature ventricular complexes, Conduction normal, ST segments normal, T waves normal, [place] normal, Clinical impression:, low voltage, NH interval: 118 ms QRS duration : 66 ms QT/QTc: 336/435 ms. - Radiology Interpretation CT scan - chest Status: report reviewed by me (no signs of PE. perihilar lymphadenopathy.) Chest x-ray Status: report reviewed by me (no acute lung process) FMR H&P: A/P - Problem List (1) Anemia Current Visit: No Status: Acute Code(s): D64.9 - ANEMIA, UNSPECIFIED (2) Latent tuberculosis Current Visit: Yes Status: Acute (3) CKD (chronic kidney disease) stage 3, GFR 30-59 ml/min Current Visit: No Status: Chronic Code(s): N18.3 - CHRONIC KIDNEY DISEASE, STAGE 3 (MODERATE) (4) GERD (gastroesophageal reflux disease) Current Visit: No Status: Chronic Code(s): K21.9 - GASTRO-ESOPHAGEAL REFLUX DISEASE WITHOUT ESOPHAGITIS (5) History of liver transplant Current Visit: No Status: Chronic Code(s): Z94.4 - LIVER TRANSPLANT STATUS (6) Insulin dependent diabetes mellitus Current Visit: No Status: Chronic Code(s): E11.9 - TYPE 2 DIABETES MELLITUS WITHOUT COMPLICATIONS; Z79.4 - HALFWAY (CURRENT) USE OF INSULIN - Plan Symptomatic Anemia - Hgb 6.5 in ED - Transfuse 2u PRBC - 6hr post transfusion hemagram - Trend H/H until stable Hx of Liver Transplant - 2/2 alcoholic cirrhosis - Spoke with social media coordinator - agreed with plan of care - F/U at [facility] next week Latent TB - Cont isoniazid tx IDDM - Continue home insulin regimen - Mild SSI - Hypoglycemic protocol HTN HLD - Continue home rx Diet: CC Code: Full Dispo: Admit to medical obs for transfusion and trending H/H FMR H&P: Upper Level - Plan Date/Time: 07/13/19 2100 IMendel MD, have evaluated this patient and agree with findings/plan as outlined by tax intern resident. Pertinent changes/additions are listed here. Hussein Hale is a 74 year old M with a PMH of liver cirrhosis/cancer s/p liver transplant (February 2019), HTN who presented to the ED after being notified by Harjinder Whitmore of a low hemoglobin after getting labs done recently. Was told that Hg was 6.8 and he needed to go to the ER for transfusion. Patient states that he has had shortness of breath for the last several weeks and fatigue but is otherwise feeling fine. Dyspnea is worsened with exertion. Notes a couple incidences of lightheadedness and dizziness. ERMD contacted Harjinder Whitmore who recommended that he be admitted to observation for 2 U of pRBC transfusion. Patient was slightly tachycardic in the ED but vitals were otherwise stable and wnl. PE was benign with exception of conjunctival pallor. Repeat Hg in ED was 6.5, Cr was 1.41. PT/INR were normal. FOBT was negative. Patient denies any GI bleeding, states that he is taking iron at home which makes his stools dark. Will place patient on [facility] medical. He has follow up with Harjinder Whitmore in one week. Will transfuse 2 U pRBCs. Anticipate d/c home after hospital stay < 2 midnights. Please see tax intern note above for full H&P, which I have reviewed and agree with. Addendum - Attending - Attending Attestation Date/Time: 07/14/19 8037 I personally evaluated the patient and discussed the management with Dr. Thorne on 07/13/2019. I agree with the History, Examination, Assessment and Plan documented above with any addition or exceptions noted below - 74 yo male with h/o liver transplant secondary cirrhosis in February, Type 2 DM, HTN sent to ER after abnormal labs returned. Patient has weekly labs for performed for transplant team and labs showed Hgb=6.5. Patient does endorse some increased fatigue, SOB over last several days. Denies any CP, abdominal pain, change on bowels. PMH/PSH /Meds/SH reviewed and agree with resident's documentation. Afebrile VSS. Exam repeated by me and agree with resident's findings. Labs: WBC=8.5, H/H=6.5/21.1, Mnn=753, Qn=574, K=4.1, BUN/Cr=17/1.41 A/P: 1) Symptomatic anemia - will transfuse 2u pRBCs; recheck H/H 2) s/p liver transplant- continue home meds.
[2019-07-13 21:48] LABS: Prothrombin Time 13.6 SEC (12.0-14.7)
[2019-07-13 23:42] LABS: Bilirubin Negative (Negative); Blood, Urine Negative (Negative); Clarity Clear (Clear); Glucose, Urine (Dipstick) Normal (Negative); Leukocyte Negative Leu/uL (Negative); Nitrite Negative (Negative); Protein, Urine (Dipstick) Negative (Neg-Trace); Urobilinogen Normal mg/dL (Less than 2)
[2019-07-13] MEDS ORDERED: Dextrose 5% in Water 1,000 ML IV PRN (23:51)
[2019-07-13] MEDS ORDERED: Dextrose 50% Abboject 50 ML SYRINGE SLOW IVP PRN (23:51)
[2019-07-13 23:59] VITALS: BMI 29.1
[2019-07-14 02:29] LABS: Iron 14 ug/dL (65-175); Iron Binding Capacity, Total 185 mcg/dL (261-462)
--- NOTE | 2019-07-14 05:53 | PDOC.FM ---
- Subjective Subjective: Reports feeling well this morning, symptoms improved after unit of blood. Denies dizziness, lightheadedness, chest pain or shortness of breath. - Objective MAR Reviewed: Yes Vital Signs & Weight: Vital Signs (12 hours) Temp Pulse Pulse Resp BP BP Pulse Ox 07/14/19 03:47 98 F 88 20 132/61 98 07/14/19 01:36 98.3 F 87 20 125/60 98 07/13/19 23:38 98.5 F 96 18 131/59 L 93 L Weight Weight 79.424 kg I&O: 07/12/19 07/13/19 07/14/19 06:59 06:59 06:59 Intake Total 350 Balance 350 Result Diagrams: 07/14/19 13:21 07/13/19 19:04 Phys Exam - Physical Examination Constitutional: NAD HEENT: moist MMs Neck: supple Respiratory: no wheezing, clear to auscultation bilateral Cardiovascular: RRR, no significant murmur Gastrointestinal: soft, non-tender, positive bowel sounds Musculoskeletal: no edema Neurological: moves all 4 limbs Psychiatric: normal affect, A&O x 3 Skin: no rash, normal turgor Dx/Plan - Plan Plan: Symptomatic Anemia - Initial Hgb 6.5. S/p 2U pRBCs - H&H at 0947 this AM Hx of Liver Transplant - 2/2 alcoholic cirrhosis - Spoke with case management coordinator - agreed with plan of care - F/U at [facility] next week Latent TB?? - Continue isoniazid IDDM - Continue home insulin regimen - Mild SSI,Hypoglycemic protocol, CC diet HTN - Continue home meds HLD - Continue home meds Code Status: Full DVT ppx: SCDs Addendum - Attending - Attending Attestation Date/Time: 07/14/19 1032 I personally evaluated the patient and discussed the management with Dr. Bui I agree with the History, Examination, Assessment and Plan documented above with any addition or exceptions noted below. HD#1 Patient admitted for symptomatic anemia sp transfusion. Work up pending. Possibly related to INH. Unsure if patient on vitamin B12. No evidence of bleeding. Will follow up with transplant team later today. Likely d/c in AM. Mary
[2019-07-14] MEDS ORDERED: PROVENTIL INHALER 6.7 G (200 INHALATIONS) INH SCH (06:30)
[2019-07-14] MEDS: Ferrous Sulfate 325 MG TAB PO SCH ×3 (08:41→16:16)
[2019-07-14] MEDS ORDERED: predniSONE 20 MG TAB PO SCH (09:00)
[2019-07-14] MEDS ORDERED: Fluconazole 100 MG TAB PO SCH (09:00)
[2019-07-14] MEDS ORDERED: Alogliptin 25 MG TAB PO SCH (09:00)
[2019-07-14] MEDS ORDERED: Ursodiol 300 MG CAP PO SCH (09:00)
[2019-07-14] MEDS ORDERED: Sodium Bicarbonate Tab 325 MG TAB PO SCH (09:00)
[2019-07-14] MEDS ORDERED: Isoniazid 100 MG TAB PO SCH (09:00)
[2019-07-14] MEDS ORDERED: PATIENT'S HOME MEDICATION PO SCH ×2 (09:00)
[2019-07-14 10:28] LABS: Hemoglobin 8.7 g/dL (14.0-18.0); Platelet Count 180 thou/uL (130-400)
[2019-07-14 14:07] LABS: Anisocytosis SLIGHT = 6-15 cells (100X) (0-5/hpf); Band 8 % (5-11); Elliptocytes SLIGHT = 2-5 cells (100X) (0-1/hpf); Hypochromia SLIGHT = 6-15 cells (100X) (0-5/hpf); Lymphocytes 1 % (21-51); MDiff Complete? YES; Mean Corpuscular HGB CONC 31.4 g/dL (32.0-36.0); Mean Corpuscular Hemoglobin 24.5 pg (27.0-31.0); Mean Corpuscular Volume 78.1 fL (78.0-98.0); Mean Platelet Volume 10.1 fL (7.4-10.4); Microcytosis SLIGHT = 6-15 cells (100X) (0-5/hpf); Neutrophil 91 % (42-75); Platelet Count 183 thou/uL (130-400); Platelet Morphology Comment Appears Adequate; RBC Distribution Width 21.9 % (11.5-14.5); Red Blood Cell (RBC) Count 3.68 mill/uL (4.70-6.10); White Blood Cell (WBC) Count 8.4 thou/uL (4.8-10.8)
[2019-07-14 15:47] VITALS: BP 116/57; TEMP 98.7
[2019-07-14] MEDS ORDERED: RAMELTEON 8 MG PO SCH (21:00)
[2019-07-14] MEDS ORDERED: Tamsulosin HCl 0.4 MG CAP PO SCH (21:00)
--- NOTE | 2019-07-15 14:41 | DIS ---
DATE OF ADMISSION: 07/13/2019 DATE OF DISCHARGE: 07/14/2019 RESIDENT: Camelia Bui MD, PGY-1. ADMITTING ATTENDING: Sharon Pineda MD DISCHARGE ATTENDING: Orin Perry MD CONSULTS: None. PROCEDURES PERFORMED: 1. Chest x-ray 07/13/2019, no acute lung process. 2. Chest CTA 07/13/2019, no evidence of pulmonary embolism. No acute lung process. Bilateral hilar adenopathy with soft tissue density extending along the bronchial tubes bilaterally producing peribronchial cuffing. Nonspecific mediastinal lymph nodes. PRIMARY DIAGNOSIS: Symptomatic microcytic anemia. SECONDARY DIAGNOSES: 1. History of liver transplant. 2. Alcoholic cirrhosis. 3. Latent TB. 4. Insulin-dependent diabetes. 5. Hypertension. 6. Hyperlipidemia. DISCHARGE MEDICATIONS: 1. Atovaquone 750 mg/5 mL, 10 mL daily. 2. Virtussin AC liquid 5 mL q.4 hours p.r.n. 3. Zortress 2 mg b.i.d. 4. Ferrous sulfate 325 mg t.i.d. 5. Fluticasone p.o. daily. 6. Isoniazid 300 mg daily. 7. Levalbuterol tartrate 3 inhalations q.4 hours p.r.n. 8. Tradjenta 5 mg daily. 9. Protonix 40 mg b.i.d. 10. Prednisone 10 mg daily. 11. Ramelteon 8 mg at bedtime. 12. Sodium bicarb 650 mg b.i.d. 13. Flomax 0.8 mg at bedtime. 14. Anoro Ellipta one inhalation daily. 15. Ursodiol 300 mg b.i.d. 16. Valganciclovir 450 mg daily. HISTORY OF PRESENT ILLNESS/HOSPITAL COURSE: Mr. Hale is a 74-year-old male with past medical history of alcoholic cirrhosis status post liver transplant in February of 2019. The patient had labs drawn every Thursday per transplant team. Lab work from this week showed hemoglobin 6.8. Therefore, patient was called and instructed to present to the emergency department. Reported symptoms of fatigue and shortness of breath. In the emergency department, hemoglobin was 6.8. He was transfused 2 units packed red blood cells. [facility] was called and notified. PT and INR were normal. FOBT was negative. Hemoglobin at discharge is 9.0. LDH 130, normal at 139. Haptoglobin 312. He had a retic count 2.1, immature retic fraction 0.478. Peripheral smear showing hypochromic microcytic anemia. Ferritin normal 129, iron low at 17, TIBC 208 which is low. The patient reports that over the last three months, this is when his anemia started. Per patient's clinic notes, GI doctor in [place] would like to wait at least 6 months status post transplant prior to doing another endoscopic evaluation. He sees Dr. Philippe at [facility]. His last clinic hemoglobin checked was 10 on 12/22/2018. The patient is on isoniazid for latent TB, but he is taking pyridoxine. There are some case studies that report normocytic or microcytic anemia caused by isoniazid. This is a possibility but unlikely due to patient taking pyridoxine. In regard to his insulin-dependent diabetes, he is continued on his home regimen, hypertension and hyperlipidemia were stable with home medications during hospitalization. The patient's daughter was contacted prior to discharge and a long discussion was had about the importance of followup. She says this is rather challenging as she works full-time. The patient's tub attendant and liver transplant surgeon want all of his specialists and office visits to be done at [facility]. However, this was difficult for her to take him to all of these appointments for workup. Therefore, information for our local bottom brusher was given to patient's daughter at discharge as workup here would be better than no workup at all. The patient discussed desire to leave prior to finishing workup and his hemoglobin was at a stable level. Return precautions were discussed and also discussed the importance of following up with patient's PCP. DISPOSITION: Stable. DISCHARGE INSTRUCTIONS: 1. Location: Home. 2. Diet: Avoid Protonix and bicarb at the time of taking iron. 3. Activity: No restrictions. 4. Followup: Follow up with Dr. Gomez at [facility], tub attendant and liver transplant surgeon at [facility]. Follow up with GI and Hematology at [facility] or here in [facility]. Job ID: [id number]
== END 2019-07-14 18:20 | disposition home or self-care (01) ==
LOC: ERS 18:21 → 2SW 20:37
PROVIDERS: ADMIT Family Medicine; ATTEND Family Medicine
DX: D50.9 Iron deficiency anemia, unspecified (principal); K70.30 Alcoholic cirrhosis of liver without ascites; I12.9 Hypertensive chronic kidney disease with stage 1 through stage 4 chronic kidney disease, or unspecified chronic kidney disease; E11.22 Type 2 diabetes mellitus with diabetic chronic kidney disease; N18.3 Chronic kidney disease, stage 3 (moderate); K21.9 Gastro-esophageal reflux disease without esophagitis; F10.21 Alcohol dependence, in remission; Z22.7 Latent tuberculosis; Z87.891 Personal history of nicotine dependence; Z79.4 Long term (current) use of insulin; Z79.52 Long term (current) use of systemic steroids; Z79.899 Other long term (current) drug therapy; Z94.4 Liver transplant status
CPT/HCPCS: 36430 ×2; 71045; 71275; 80053; 81003; 82274; 82728; 82962; 83010; 83540; 83550; 83615; 83880; 84207; 84484; 85007; 85014; 85018; 85025; 85027; 85049; 85610; 86850; 86900; 86901; 86920; 93005; 94640; 96360; 99285; G0378 ×2; P9016 ×2; 36415; 36416; 85060; J7512; J7620; J8499; Q9966

== ENCOUNTER 2019-12-04 03:33 | Observation (INO) | payer MEDICARE ==
[2019-12-04 04:20] LABS: Hemoglobin 9.1 g/dL (14.0-18.0); Mean Corpuscular HGB CONC 32.1 g/dL (32.0-36.0); Mean Corpuscular Hemoglobin 21.5 pg (27.0-31.0); Mean Platelet Volume 11.5 fL (7.4-10.4); Platelet Count 184 thou/uL (130-400); RBC Distribution Width 17.5 % (11.5-14.5); Red Blood Cell (RBC) Count 4.24 mill/uL (4.70-6.10)
[2019-12-04 04:30] LABS: ALT (SGPT) 15 U/L (8-55); AST (SGOT) 15 U/L (5-34); Albumin 4.1 g/dL (3.4-4.8); Alkaline Phosphatase 123 U/L (40-110); Anion Gap 14 mmol/L (10-20); BUN (Urea Nitrogen) 21 mg/dL (8.4-25.7); Bilirubin, Total 0.2 mg/dL (0.2-1.2); Calc. Creatinine Clearance 0 mL/min (70-130); Calcium 9.5 mg/dL (7.8-10.44); Carbon Dioxide 24 mmol/L (23-31); Chloride 106 mmol/L (98-107); Estimated GFR-MDRD 45; Globulin 3.2 g/dL (2.4-3.5); Glucose 120 mg/dL (83-110); Protein, Total 7.3 g/dL (5.8-8.1); Sodium 140 mmol/L (136-145)
[2019-12-04 04:42] LABS: #Eosinphils 0.1 thou/uL (0.0-0.7); #Lymphocytes 0.5 thou/uL (1.20-3.40); #Monocytes 0.4 thou/uL (0.11-0.59); %Basophils 0.3 % (0.0-1.0); %Eosinophils 1.5 % (0.0-10.0); %Lymphocytes 10.1 % (21.0-51.0); %Monocytes 7.1 % (0.0-10.0); %Neutrophils 81.1 % (42.0-75.0); Anisocytosis SLIGHT = 6-15 cells (100X) (0-5/hpf); Elliptocytes SLIGHT = 2-5 cells (100X) (0-1/hpf); Large Platelets SLIGHT; MDiff Complete? YES; Microcytosis MODERATE=15-30 cells (100X) (0-5/hpf); Platelet Morphology Comment Appears Adequate; Polychromasia SLIGHT = 2-3 cells (100X) (0-2/hpf)
[2019-12-04] MEDS ORDERED: Nitroglycerin 0.4 MG TAB 1 EACH ONE (05:29)
[2019-12-04] MEDS ORDERED: Aspirin Chewable 81 MG TAB ONE (05:31)
--- NOTE | 2019-12-04 07:28 | PDOC.FPRHP ---
- History of Present Illness Chief Complaint: Chest Pain History of Present Illness: Pt is a 74 yo with PMH significant for DM II, testicular hypofunction, CKD III , GERD, umbilical hernia, Alcoholic Cirrhosis, Liver Cell Carcinoma s/p liver transplant in 2019 who presents with L sided chest pain. Chest pain started the day prior. It initially started on the anterior portion then migrated to the posterior back. He states it hurts to touch, burning in nature. Denies n/v , diaphoresis, radiation down arm, lightheadedness, syncope. He has never had a cardiac workup with the past. Pt had chicken pox as a child, shingles on his R neck as an adult. Of note he does have a liver transplant in 2019 and is currently taking immunosuppresive therapy according to our clinic chart. ED Course: In the ED pt was given aspirin, nitroglycerin SL. - Allergies/Adverse Reactions Allergies Allergy/AdvReac Type Severity Reaction Status Date / Time No Known Allergies Allergy Verified 07/14/19 00:28 - Home Medications Medication Instructions Recorded Confirmed Type Tamsulosin HCl [Flomax] 0.8 mg PO HS 05/17/14 12/04/19 History Atovaquone 10 ml PO DAILY 06/06/19 12/04/19 History Everolimus [Zortress] 2 mg PO BID 06/06/19 12/04/19 History Linagliptin [Tradjenta] 5 mg PO DAILY 06/06/19 12/04/19 History Pantoprazole [Protonix] 40 mg PO BID 06/06/19 12/04/19 History predniSONE [Prednisone] 10 mg PO DAILY 06/06/19 12/04/19 History Levalbuterol Tartrate 3 puff INH Q4H 07/13/19 12/04/19 History [Levalbuterol Tartrate Hfa] Ramelteon 8 mg PO HS 07/13/19 12/04/19 History Umeclidinium Brm/Vilanterol Tr 1 inh IH DAILY 07/13/19 12/04/19 History [Anoro Ellipta] Ferrous Sulfate [Iron] 325 mg PO DAILY 12/04/19 12/04/19 History Fluconazole [Diflucan] 400 mg PO DAILY 12/04/19 12/04/19 History Isoniazid 300 mg PO DAILY 12/04/19 12/04/19 History Ursodiol [Actigal] 300 mg PO BID 12/04/19 12/04/19 History valGANciclovir HCl 450 mg PO DAILY 12/04/19 12/04/19 History - History PMHx: Alcohol cirrhosis and Liver cell carcinoma s/p liver transplant, CKD III, GERD, Umbilical Hernia, Thrombocytopenia, Proteinuria, HTN PSHx: colonoscopy FHx: Mother - diabetes Social: hx of smoking, alcohol use; no drug use - Review of Systems General: denies: fever/chills, weight/appetite/sleep changes Eyes: denies: eye pain, vision changes ENT: denies: nasal congestion, rhinorrhea Respiratory: denies: cough, congestion Cardiovascular: reports: chest pain. denies: palpitation, edema Gastrointestinal: denies: nausea, vomiting, diarrhea, constipation, GI bleeding Skin: denies: rashes, lesions Musculoskeletal: denies: pain, tenderness Neurological: denies: numbness, syncope, weakness Psychological: denies: anxiety, depression - Vital signs BP: 140/65 HR: 78 RR: 16 Tmax: 98.2 Pox: 100% on RA Wt: 80 kg - Physical Exam Constitutional: NAD, awake, alert and oriented HEENT: PERRLA, EOMI Neck: no LAD, no JVD -Chest: tender to palpation on backside and axillae region Heart: RRR, normal S1/S2 -Heart: trace pitting edema Lungs: CTAB, no respiratory distress, no wheezing Abdomen: soft, non-tender, bowel sounds present -Abdomen: ventral hernia present Musculoskeletal: normal structure, normal tone Neurological: no focal deficit, CN II-XII intact Skin: no rash/lesions, capillary refill <2 seconds Heme/Lymphatic: no purpura, no petechia Psychiatric: normal mood and affect, good judgment and insight FMR H&P: Results - Labs Result Diagrams: 12/04/19 03:47 12/04/19 03:47 Lab results: WBC 5.0 thou/uL (4.8-10.8) 12/04/19 03:47 Hgb 9.1 g/dL (14.0-18.0) L 12/04/19 03:47 Hct 28.4 % (42.0-52.0) L 12/04/19 03:47 MCV 67.0 fL (78.0-98.0) L 12/04/19 03:47 Plt Count 184 thou/uL (130-400) 12/04/19 03:47 Neutrophils % 81.1 % (42.0-75.0) H 12/04/19 03:47 Sodium 140 mmol/L (136-145) 12/04/19 03:47 Potassium 4.0 mmol/L (3.5-5.1) 12/04/19 03:47 Chloride 106 mmol/L (98-107) 12/04/19 03:47 Carbon Dioxide 24 mmol/L (23-31) 12/04/19 03:47 BUN 21 mg/dL (8.4-25.7) 12/04/19 03:47 Creatinine 1.51 mg/dL (0.7-1.3) H 12/04/19 03:47 Glucose 120 mg/dL (83-110) H 12/04/19 03:47 Calcium 9.5 mg/dL (7.8-10.44) 12/04/19 03:47 Total Bilirubin 0.2 mg/dL (0.2-1.2) 12/04/19 03:47 AST 15 U/L (5-34) 12/04/19 03:47 ALT 15 U/L (8-55) 12/04/19 03:47 Alkaline Phosphatase 123 U/L (40-110) H 12/04/19 03:47 Serum Total Protein 7.3 g/dL (5.8-8.1) 12/04/19 03:47 Albumin 4.1 g/dL (3.4-4.8) 12/04/19 03:47 - EKG Interpretation EKG: NSR, no st changes - Radiology Interpretation Chest x-ray Status: image reviewed by me, report reviewed by me Additional comment: WNL FMR H&P: A/P - Problem List (1) S/P liver transplant Current Visit: Yes Status: Acute Code(s): Z94.4 - LIVER TRANSPLANT STATUS (2) Atypical chest pain Current Visit: Yes Status: Acute Code(s): R07.89 - OTHER CHEST PAIN (3) Neuropathic pain Current Visit: Yes Status: Acute Code(s): M79.2 - NEURALGIA AND NEURITIS, UNSPECIFIED (4) Anemia Current Visit: No Status: Acute Code(s): D64.9 - ANEMIA, UNSPECIFIED (5) CKD (chronic kidney disease) stage 3, GFR 30-59 ml/min Current Visit: No Status: Chronic Code(s): N18.3 - CHRONIC KIDNEY DISEASE, STAGE 3 (MODERATE) (6) GERD (gastroesophageal reflux disease) Current Visit: No Status: Chronic Code(s): K21.9 - GASTRO-ESOPHAGEAL REFLUX DISEASE WITHOUT ESOPHAGITIS (7) Insulin dependent diabetes mellitus Current Visit: No Status: Chronic Code(s): E11.9 - TYPE 2 DIABETES MELLITUS WITHOUT COMPLICATIONS; Z79.4 - STORE DETECTIVE (CURRENT) USE OF INSULIN - Plan Pt is a 74 yo male who presents for: # Atypical Chest Pain Angina vs Neuropathic Pain/Shingles - ASA daily - stress test pending - NPO - gabapentin - trend trops - CXR WNL - EKG NSR # Hx of Liver Transplant 2/2 Alcohol cirrhosis, Liver cell carcinoma - continue home meds - immunosuppression # GERD - continue home meds # Umblical hernia - follow up outpt # CKD III w/ proteinuria - stable # Thrombocytopenia - stable # Microcytic Anemia - at baseline VTE: lovenox Dispo: tele obs FMR H&P: Upper Level - Pertinent history 74 year old male presents with a one day history of left anterior chest wall and left sided back pain medial to left scapula. Patient states it is a burning pain and hurts to the touch. He states that it is difficult to get in a comfortable position due to the pain. He denies dysuria, fever, congestion , shortness of breath. Patient has cough that he has seen PCP about recently, but it is not currently bothering him. Patient states he has no significant cardiac history. He has never had a stress test. He quit smoking >35 years ago. He denies radiation of pain to left arm or neck. Patient has had shingles before. He had a liver transplant last summer and is on many immunosuppressive agents. - Pertinent findings General: Alert and oriented x3. No acute distress. HEENT: MMM Card: RRR, no murmur Resp: CTA bilaterally, no acute distress Abdom: Soft, non tender Ext: Trace edema bilateral lower extremities MSK: Equisitely tender with soft touch and palpation to left upper back medial of scapula - Plan Date/Time: 12/04/19 0722 Aleyda Lunsford, have evaluated this patient and agree with findings/plan as outlined by tech intern resident. Pertinent changes/additions are listed here. Atypical chest pain - Pain is reproducible to palpation and patient sensitive to light touch - No vesicles noted; but suspect he may have an outbreak of shingles given burning sensation in dermatomal pattern - Will trial gabapentin to see if pain is relieved - Consider antiviral medications - Will order stress test due to risk factors - Trop neg x1, will trend - CXR unremarkable Microcytic anemia - H/H 9.1/28.4 - Will order iron studies - If no history of colonoscopy, patient should have this done in outpatient setting Liver cell carcinoma s/p liver transplant - Transplant in summer 2018 - Continue immunosuppressive drugs DM type II - Continue home medications CKD stage III - Appears to be at baseline Insomnia - Melatonin as needed BPH - Continue home medications DVT PPX: Lovenox Code Status: Full Dispo: Obs on telemetry. Anticipate LOS <48 hours.
[2019-12-04 07:29] LABS: Troponin I Less than 0.010 ng/mL (< 0.028)
[2019-12-04 08:01] VITALS: BMI 28.5
--- NOTE | 2019-12-04 08:24 | RAD ---
Chest one view HISTORY: Chest pain. Hypertension. COMPARISON: 07/13/2019. FINDINGS: Cardiac silhouette and pulmonary vasculature are unremarkable. Mediastinum is midline with aortic calcification. Chronic subtle opacity at the left posterior lung base and left lateral costophrenic angle is unchanged in appearance from the prior study and was represented by pleural thi ckening on interval CT. No lobar consolidation or evidence of pneumothorax. connection worker leads overlie the chest. IMPRESSION: Chronic-type findings are stable. No active cardiopulmonary abnormalities are demonstrate d.
[2019-12-04] MEDS ORDERED: ISONIAZID 300 MG PO SCH (09:00)
[2019-12-04] MEDS ORDERED: Enoxaparin Sodium 40 MG/0.4 ML SYRINGE SC SCH (09:00)
[2019-12-04] MEDS ORDERED: Non-Formulary Item 1 EACH (Linagliptin [Tradjenta] 5 MG) PO SCH (09:00)
[2019-12-04] MEDS ORDERED: Non-Formulary Item 1 EACH (Umeclidinium Brm/Vilanterol Tr [Anoro Ellipta] 1 INH) IH SCH (09:00)
[2019-12-04] MEDS ORDERED: Aspirin 325 mg Enteric Coated Tablet PO SCH (09:00)
[2019-12-04] MEDS ORDERED: Atovaquone 750 MG/5 ML UDCUP PO SCH (09:00)
[2019-12-04] MEDS ORDERED: Ursodiol 300 MG CAP PO SCH (09:00)
[2019-12-04] MEDS ORDERED: Fluconazole 100 MG TAB PO SCH (09:00)
[2019-12-04] MEDS ORDERED: Isoniazid 100 MG TAB PO SCH (09:00)
[2019-12-04] MEDS ORDERED: Enoxaparin Sodium 30 MG/0.3 ML SYRINGE SC SCH (09:00)
[2019-12-04] MEDS ORDERED: FLUCONAZOLE 400 MG PO SCH (09:00)
[2019-12-04] MEDS ORDERED: EVEROLIMUS 2 MG PO SCH (10:06)
[2019-12-04] MEDS: Gabapentin 100 MG CAP PO SCH ×2 (10:07→15:44)
[2019-12-04] MEDS ORDERED: LEVALBUTEROL TARTRATE INH SCH (10:15)
[2019-12-04 11:03] VITALS: BP 160/71; TEMP 98
[2019-12-04] MEDS: PROVENTIL INHALER 6.7 G (200 INHALATIONS) INH SCH ×2 (11:03→14:31)
--- NOTE | 2019-12-04 11:09 | NM ---
Radionucleotide stress and rest myocardial perfusion scan with CT attenuation correction and SPECT im aging Left ventricular wall motion evaluation and ejection fraction HISTORY: Chest pain. FINDINGS: There is homogeneous uptake of radiotracer throughout the left ventricular myocardium on th e stress and rest images. No focal perfusion defect or reversibility. Lexiscan protocol. QGS analysis of gated SPECT images shows no focal wall motion abnormalities. Ejection fraction calcul ated at 76%. IMPRESSION: Normal perfusion exam. Normal LVEF.
--- NOTE | 2019-12-04 11:11 | HP ---
Please see the history and physical done by Dr. Juan A Solano for which I agree the patient was seen and discussed, evaluated, and examined with the residents by bedside. 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 Seems to be almost left axillary to left posterior back. Some generalized burning. Not really having shortness of breath or diaphoresis. It sounds like he has never had a cardiac workup in the past, this is a little bit unusual, as he did have a liver transplant a year ago. We are surprised that they did not do a cardiac workup on him before, but he is here to rule out acute coronary syndrome, although so far troponin levels have been normal. ALLERGIES: ALL PER RESIDENT'S HISTORY AND PHYSICAL. HOME MEDICATIONS: All per resident's history and physical. PAST MEDICAL HISTORY: All per resident's history and physical. PAST SURGICAL HISTORY: All per resident's history and physical. FAMILY HISTORY: All per resident's history and physical. SOCIAL HISTORY: All per resident's history and physical. REVIEW OF SYSTEMS: All per resident's history and physical. PHYSICAL EXAMINATION: GENERAL: No apparent distress. HEENT: Breathing comfortably. ENT is normal. CHEST: Clear. HEART: Regular rate and rhythm. EXTREMITIES: No edema. Could not really reproduce the pain on shoulder movement nor is the skin particularly sensitive. I see no rashes or anything vesicular at this point. LABORATORY DATA: Lab workup includes creatinine a little bit high 1.5. Hemoglobin little bit at 9.1. IMAGING STUDIES: EKG was normal. Chest x-ray is normal. ASSESSMENT AND PLAN: Atypical left-sided chest pain. It does sound to be more consistent with a neuropathic type pain, assuming zoster, just not a rash yet. We are going to proceed with a stress test, and if negative, will likely discharge him on medications for zoster and herpetic neuropathy. Job ID: [id number]
[2019-12-04 12:56] LABS: Troponin I Less than 0.010 ng/mL (< 0.028)
[2019-12-04] MEDS ORDERED: Ferrous Sulfate 325 MG TAB PO SCH (15:00)
[2019-12-04] MEDS ORDERED: Non-Formulary Item 1 EACH (Ferrous Sulfate [Iron] 325 MG) PO SCH (15:00)
[2019-12-04] MEDS ORDERED: Regadenoson 0.4 MG/5 ML SYRINGE ONE (15:47)
[2019-12-04] MEDS ORDERED: Tamsulosin HCl 0.4 MG CAP PO SCH (21:00)
[2019-12-04] MEDS ORDERED: RAMELTEON 8 MG PO SCH (21:00)
[2019-12-04] MEDS ORDERED: RAMELTEON PO SCH (21:00)
[2019-12-04] MEDS ORDERED: EVEROLIMUS PO SCH (21:00)
[2019-12-05] MEDS ORDERED: Alogliptin 25 MG TAB PO SCH (09:00)
[2019-12-05] MEDS ORDERED: Non-Formulary Item 1 EACH (Prednisone [Prednisone] 10 MG) PO SCH (09:00)
[2019-12-05] MEDS ORDERED: predniSONE 5 MG TAB PO SCH (09:00)
--- NOTE | 2019-12-05 14:18 | DIS ---
DATE OF ADMISSION: 12/04/2019 DATE OF DISCHARGE: 12/04/2019 RESIDENT: Oscar Chowdhury MD ADMITTING ATTENDING: Juan Francisco Anguiano MD DISCHARGE ATTENDING: Juan Francisco Anguiano MD CONSULTS: None. PROCEDURES: 1. Chest x-ray on 12/04/2019, demonstrating chronic type findings that are stable. No acute cardiopulmonary abnormalities. 2. Nuclear medicine stress test on 12/04/2019, demonstrating normal perfusion exam, normal left ventricular ejection fraction. PRIMARY DIAGNOSIS: Atypical chest pain, suspected early Varicella-zoster infection. SECONDARY DIAGNOSES: 1. Microcytic anemia. 2. Liver cell carcinoma, status post liver transplant. 3. Type 2 diabetes. 4. Chronic kidney disease, 3. 5. Insomnia. 6. Benign prostatic hyperplasia. 7. Umbilical hernia. 8. Thrombocytopenia. DISCHARGE MEDICATIONS: 1. Flomax 0.8 mg p.o. at bedtime. 2. Prednisone 10 mg p.o. daily. 3. Protonix 40 mg p.o. b.i.d. 4. Tradjenta 5 mg p.o. daily. 5. Zortress 2 mg p.o. b.i.d. 6. Atovaquone 750 mg/5 mL oral suspension 10 mL p.o. daily. 7. Levalbuterol HFA three puffs q.4 hours p.r.n. 8. Anoro Ellipta 62.5 mcg/25 mcg one inhalation daily. 9. Ramelteon 8 mg p.o. at bedtime. 10. Iron 325 mg p.o. t.i.d. 11. Valganciclovir 450 mg p.o. daily. 12. Ursodiol 300 mg p.o. b.i.d. 13. Isoniazid 300 mg p.o. daily. 14. Diflucan 400 mg p.o. daily. 15. Gabapentin 100 mg p.o. t.i.d. p.r.n. 16. Valacyclovir 1 g p.o. t.i.d. x7 days. HISTORY OF PRESENT ILLNESS AND HOSPITAL COURSE: The patient is a very pleasant 74-year-old male with past medical history significant for type 2 diabetes; CKD, 3; alcoholic cirrhosis; and liver cell carcinoma, status post liver transplant in 2019, who presented for left-sided chest pain. He stated the pain started the day prior and described it as left axillary pain that radiated to the back. It was painful to touch and a burning sensation in nature. He denied any nausea, vomiting, diaphoresis, radiation down on the arm, lightheadedness, syncope, or palpitations. He states he has never had a cardiac workup in the past. He has had chickenpox in the past and shingles on the right anterior neck as an adult. Since his liver transplant in 2019, he has been on immunosuppressive therapy. In the emergency department, he was given aspirin, nitroglycerin, and EKG did not show any acute changes and troponin was negative x3. Due to the patient's comorbid conditions, it was determined that the patient would undergo a nuclear medicine stress test, which was performed and unremarkable. The patient was given a dose of gabapentin with improvement of symptoms and started on valacyclovir for pursuing shingles. His chronic medical conditions were treated with his home medications. These were continued upon discharge. At the time of discharge, the results were discussed with the patient as well as appropriate followup and home medications. The patient will take valacyclovir for 1week and gabapentin t.i.d. as needed. Discharge plan discussed with the patient at bedside, who voiced agreement and understanding. All questions were answered appropriately. DISPOSITION: Stable. DISCHARGE INSTRUCTIONS: 1. Location: Home. 2. Diet: Heart healthy. 3. Activity: As tolerated. 4. Followup: The patient to follow with primary care provider and other specialists as previously directed. Job ID: [id number]
--- NOTE | 2019-12-10 13:14 | EKG ---
Test Reason : Blood Pressure : / mmHG Vent. Rate : 083 BPM Atrial Rate : 083 BPM P-R Int : 160 ms QRS Dur : 078 ms QT Int : 370 ms P-R-T Axes : 006 009 031 degrees QTc Int : 434 ms Normal sinus rhythm Normal ECG Confirmed by SIVAKUMAR GARCIA ([id number]), editor news MARLYS CEBALLOS ([id number]) on 12/10/2019 1:13:21 PM Referred By: Confirmed By:SIVAKUMAR GARCIA
== END 2019-12-04 16:29 | disposition home or self-care (01) ==
LOC: ERS 03:33 → 2SW 05:53
PROVIDERS: ADMIT Family Medicine; ATTEND Family Medicine
DX: R07.89 Other chest pain (principal); D64.9 Anemia, unspecified; E11.22 Type 2 diabetes mellitus with diabetic chronic kidney disease; N18.3 Chronic kidney disease, stage 3 (moderate); G47.00 Insomnia, unspecified; N40.0 Benign prostatic hyperplasia without lower urinary tract symptoms; K42.9 Umbilical hernia without obstruction or gangrene; K21.9 Gastro-esophageal reflux disease without esophagitis; D69.6 Thrombocytopenia, unspecified; Z79.899 Other long term (current) drug therapy; Z98.890 Other specified postprocedural states; Z94.4 Liver transplant status; Z79.4 Long term (current) use of insulin
CPT/HCPCS: 71045; 78452; 80053; 84484 ×2; 85025; 93005; 93017; 94640; 96372; 99285; A9500; G0378 ×2; 36415; J1650; J2785; J8499

== ENCOUNTER 2022-02-14 07:46 | Outpatient (CLI) | payer MEDICARE | END 2022-02-14 07:47 | disposition home or self-care (01) | LOC: BICULT 07:46 | PROVIDERS: ATTEND Urology | DX: N18.9 Chronic kidney disease, unspecified (principal); R35.1 Nocturia; R18.8 Other ascites; Z76.82 Awaiting organ transplant status; N27.1 Small kidney, bilateral; N32.89 Other specified disorders of bladder | CPT/HCPCS: 76770 ==

== ENCOUNTER 2023-07-02 08:14 | Outpatient (CLI) | payer MEDICARE ==
[2023-07-02 09:12] LABS: Hematocrit 32.4 % (38.8-50.0); Hemoglobin 10.6 g/dL (13.5-17.5); Mean Corpuscular HGB CONC 32.7 g/dL (32.0-36.0); Mean Corpuscular Hemoglobin 25.6 pg (27.0-33.0); Mean Corpuscular Volume 78.3 fl (81.2-95.1); Mean Platelet Volume 8.7 fl (7.4-10.4); Platelet Count 194 10x3/uL (150-450); RBC Distribution Width 14.6 % (11.5-14.5); Red Blood Cell (RBC) Count 4.14 10x6/uL (4.32-5.72)
[2023-07-02 09:47] LABS: PTT 28.5 sec (22.0-33.0); Prothrombin Time 10.6 sec (9.5-12.1)
[2023-07-02 10:03] LABS: ALT (SGPT) 17 U/L (8-55); AST (SGOT) 15 U/L (5-34); Alkaline Phosphatase 96 U/L (40-110); Anion Gap 18 mmol/L (10-20); BUN (Urea Nitrogen) 26 mg/dL (8.4-25.7); Bilirubin, Direct 0.2 mg/dL (0.1-0.3); Bilirubin, Total 0.5 mg/dL (0.2-1.2); Calc. Creatinine Clearance 0 mL/min (70-130); Calcium 9.3 mg/dL (7.8-10.44); Carbon Dioxide 23 mmol/L (23-31); Chloride 100 mmol/L (98-107); Estimated GFR 21; Glucose 125 mg/dL (83-110); Potassium 4.9 mmol/L (3.5-5.1); Protein, Total 6.4 g/dL (5.8-8.1); Sodium 136 mmol/L (136-145)
== END 2023-07-02 08:15 | disposition home or self-care (01) ==
LOC: LABBT 08:14
PROVIDERS: ATTEND Surgery
DX: Z01.818 Encounter for other preprocedural examination (principal)
CPT/HCPCS: 80048; 80076; 85027; 85610; 85730; 93005; 93010

== ENCOUNTER 2023-07-07 06:09 | Inpatient (IN) | payer MEDICARE ==
[2023-07-02 08:50] VITALS: BMI 27.9
[2023-07-07] MEDS ORDERED: fentaNYL 50 mcg/mL 1 mL Vial ONE ×3 (06:30→12:29)
[2023-07-07] MEDS ORDERED: SUGAMMADEX SODIUM 200 MG/2 ML VIAL ONE (06:31)
[2023-07-07] MEDS ORDERED: HYDROmorphone 0.5 MG/0.5 ML SYRINGE ONE ×2 (06:35→12:55)
[2023-07-07] MEDS ORDERED: Thrombin 5000 UNITS/5 ML VIAL ONE (07:02)
[2023-07-07] MEDS ORDERED: Vancomycin 1 GM VIAL ONE (07:02)
[2023-07-07] MEDS ORDERED: Sodium Chloride 0.9% 100 ML ONE (07:16)
[2023-07-07] MEDS ORDERED: CEFAZOLIN 2 GM VIAL ONE (07:16)
[2023-07-07] MEDS ORDERED: PHENYLEPHRINE-NS 100 MCG/ML 10 ML SYRINGE ONE ×2 (07:37→11:09)
[2023-07-07] MEDS ORDERED: Lidocaine 1% PF 5 ML VIAL ONE (07:37)
[2023-07-07] MEDS ORDERED: Dexamethasone 20 MG/5 ML VIAL ONE (07:37)
[2023-07-07] MEDS ORDERED: PROPOFOL 200 MG/20 ML VIAL ONE (07:37)
[2023-07-07] MEDS ORDERED: Rocuronium Bromide 10 MG/ML (10ML VIAL) ONE (07:37)
[2023-07-07] MEDS ORDERED: Ondansetron PF 4 MG/2 ML Vial ONE (07:37)
[2023-07-07] MEDS ORDERED: Phenylephrine 10 MG/ML VIAL ONE (07:52)
[2023-07-07] MEDS ORDERED: Promethazine HCl 25 MG/ML VIAL IM PRN (10:48)
[2023-07-07] MEDS ORDERED: Ondansetron HCl/PF 4 MG/2 ML Vial IVP PRN (10:48)
[2023-07-07] MEDS ORDERED: Milk Of Magnesia 30 ML UDCUP PO PRN (11:39)
[2023-07-07] MEDS ORDERED: Bisacodyl 10 MG SUPP PR PRN (11:39)
[2023-07-07] MEDS ORDERED: Ondansetron PF 4 MG/2 ML Vial IVP PRN (11:39)
[2023-07-07] MEDS ORDERED: Acetaminophen/Codeine 30-300mg Tablet PO PRN (11:39)
[2023-07-07] MEDS ORDERED: diphenhydrAMINE 25 MG CAP PO PRN (11:39)
[2023-07-07] MEDS ORDERED: Morphine 2 MG/ML VIAL SLOW IVP PRN (11:39)
[2023-07-07] MEDS ORDERED: Acetaminophen 325 MG TAB PO PRN (11:39)
[2023-07-07] MEDS ORDERED: Diazepam 5 MG TAB PO PRN (11:47)
[2023-07-07] MEDS ORDERED: hydrALAZINE 20 MG/ML VIAL SLOW IVP PRN (11:51)
[2023-07-07] MEDS ORDERED: Fluticasone Propionate Nasal Spray 16 gm Bottle NASAL PRN (13:34)
[2023-07-07] MEDS: CEFAZOLIN 2 GM in Sodium Chloride 0.9% 100 ML IVPB SCH ×2 (17:20→23:58)
[2023-07-07] MEDS: Gabapentin 300 MG CAP PO SCH ×2 (17:20→21:47)
[2023-07-07] MEDS: HYDROcodone/Acetaminophen 10/325 mg Tablet PO PRN ×2 (17:20→21:47)
[2023-07-07] MEDS: Sodium Bicarbonate Tab 325 MG TAB PO SCH ×2 (17:20→21:46)
[2023-07-07] MEDS: Ferrous Sulfate 325 MG TAB PO SCH (17:20)
[2023-07-07] MEDS: Sodium Chloride 0.9% 1,000 ML IV SCH (17:39)
[2023-07-07] MEDS ORDERED: FLU VACC QS2023(65UP)/MF59C/PF 60 MCG/0.5 ML SYRINGE IM ONE (18:45)
[2023-07-07] MEDS: Ipratropium Bromide 2.5 ml Neb NEB SCH ×2 (18:46→21:34)
[2023-07-07] MEDS: EVEROLIMUS 0.5 MG PO SCH (21:44)
[2023-07-07] MEDS: Tacrolimus 1 MG CAP PO SCH (21:46)
[2023-07-07] MEDS: Docusate 100 MG CAP PO SCH (21:47)
[2023-07-07] MEDS: Tamsulosin HCl 0.4 MG CAP PO SCH (21:47)
[2023-07-08] MEDS: Sodium Chloride 0.9% 1,000 ML IV SCH ×2 (05:07→18:01)
[2023-07-08] MEDS: HYDROcodone/Acetaminophen 10/325 mg Tablet PO PRN ×2 (05:16→13:32)
[2023-07-08 06:34] LABS: #Monocytes 0.5 thou/uL (0.11-0.59); #Neutrophils 5.4 thou/uL (1.40-6.50); %Basophils 0.2 % (0.0-1.0); %Lymphocytes 5.1 % (21.0-51.0); %Monocytes 7.9 % (0.0-10.0); %Neutrophils 86.3 % (42.0-75.0); Hematocrit 24.8 % (42.0-52.0); Hemoglobin 7.8 g/dL (14.0-18.0); Mean Corpuscular HGB CONC 31.5 g/dL (32.0-36.0); Mean Corpuscular Hemoglobin 25.2 pg (27.0-31.0); Mean Platelet Volume 9.3 fL (7.4-10.4); Platelet Count 169 10x3/uL (130-400); RBC Distribution Width 14.7 % (11.5-14.5); White Blood Cell (WBC) Count 6.2 10x3/uL (4.8-10.8)
[2023-07-08 06:48] LABS: Anion Gap 15 mmol/L (10-20); BUN (Urea Nitrogen) 27 mg/dL (8.4-25.7); Calc. Creatinine Clearance 23 mL/min (70-130); Carbon Dioxide 22 mmol/L (23-31); Chloride 103 mmol/L (98-107); Estimated GFR 22; Glucose 150 mg/dL (83-110); Potassium 5.5 mmol/L (3.5-5.1); Sodium 134 mmol/L (136-145)
[2023-07-08] MEDS: Budesonide 0.5 MG/2 ML NEB NEB SCH (07:34)
[2023-07-08] MEDS: Ipratropium Bromide 2.5 ml Neb NEB SCH ×3 (07:35→18:51)
[2023-07-08] MEDS: Multivit, Therapeutic 1 TAB PO SCH (08:34)
[2023-07-08] MEDS: Oxybutynin ER 5 MG TAB PO SCH (08:34)
[2023-07-08] MEDS: Calcium Carbonate 500 MG TAB PO SCH (08:34)
[2023-07-08] MEDS: Lisinopril 5 MG TAB PO SCH (08:34)
[2023-07-08] MEDS: Atorvastatin Calcium 40 MG TAB PO SCH (08:34)
[2023-07-08] MEDS: Ferrous Sulfate 325 MG TAB PO SCH ×3 (08:34→16:55)
[2023-07-08] MEDS: Cholecalciferol 1,000 UNITS (25 MCG) TAB PO SCH (08:34)
[2023-07-08] MEDS: Sodium Bicarbonate Tab 325 MG TAB PO SCH ×3 (08:34→20:23)
[2023-07-08] MEDS: EVEROLIMUS 0.5 MG PO SCH ×2 (08:35→20:25)
[2023-07-08] MEDS: Alogliptin 6.25 MG TAB PO SCH (08:35)
[2023-07-08] MEDS: Amlodipine 5 MG TAB PO SCH (08:35)
[2023-07-08] MEDS: Furosemide 20 MG TAB PO SCH (08:35)
[2023-07-08] MEDS: Docusate 100 MG CAP PO SCH ×2 (08:35→20:23)
[2023-07-08] MEDS: Gabapentin 300 MG CAP PO SCH ×3 (08:35→20:22)
[2023-07-08] MEDS: Tacrolimus 1 MG CAP PO SCH ×2 (08:46→20:22)
[2023-07-08] MEDS ORDERED: Non-Formulary Item 1 EACH (Umeclidinium Bromide [Incruse Ellipta] 62.5 MCG Blst.W.Dev) IH SCH (09:00)
[2023-07-08] MEDS ORDERED: Calcitriol 0.25 MCG CAP PO SCH (09:00)
[2023-07-08] MEDS ORDERED: Furosemide 20 MG/2 ML VIAL SLOW IVP SCH (11:00)
[2023-07-08 15:41] LABS: Potassium 5.1 mmol/L (3.5-5.1)
[2023-07-08] MEDS: HYDROcodone/Acetaminophen 5/325 mg Tablet PO PRN (18:00)
[2023-07-08] MEDS ORDERED: Simethicone Chewable 80 MG TAB PO PRN (18:06)
[2023-07-08] MEDS: Tamsulosin HCl 0.4 MG CAP PO SCH (20:22)
[2023-07-09] MEDS: Ipratropium Bromide 2.5 ml Neb NEB SCH ×4 (00:52→18:47)
[2023-07-09] MEDS: Budesonide 0.5 MG/2 ML NEB NEB SCH (06:51)
[2023-07-09 08:04] LABS: #Eosinphils 0.1 thou/uL (0.0-0.7); #Monocytes 0.7 thou/uL (0.11-0.59); #Neutrophils 5.1 thou/uL (1.40-6.50); %Basophils 0.5 % (0.0-1.0); %Eosinophils 1.4 % (0.0-10.0); %Lymphocytes 8.6 % (21.0-51.0); %Monocytes 10.7 % (0.0-10.0); %Neutrophils 77.7 % (42.0-75.0); Mean Corpuscular HGB CONC 32.1 g/dL (32.0-36.0); Mean Corpuscular Hemoglobin 25.9 pg (27.0-31.0); Mean Corpuscular Volume 80.5 fl (78.0-98.0); Mean Platelet Volume 9.1 fL (7.4-10.4); Platelet Count 179 10x3/uL (130-400); RBC Distribution Width 15.3 % (11.5-14.5); Red Blood Cell (RBC) Count 4.41 mill/uL (4.70-6.10); White Blood Cell (WBC) Count 6.5 10x3/uL (4.8-10.8)
[2023-07-09] MEDS: Alogliptin 6.25 MG TAB PO SCH (08:32)
[2023-07-09] MEDS: Lisinopril 5 MG TAB PO SCH (08:32)
[2023-07-09] MEDS: Gabapentin 300 MG CAP PO SCH ×2 (08:32→15:27)
[2023-07-09] MEDS: Calcium Carbonate 500 MG TAB PO SCH (08:33)
[2023-07-09] MEDS: Amlodipine 5 MG TAB PO SCH (08:33)
[2023-07-09] MEDS: Furosemide 20 MG TAB PO SCH (08:33)
[2023-07-09] MEDS: Oxybutynin ER 5 MG TAB PO SCH (08:33)
[2023-07-09] MEDS: Cholecalciferol 1,000 UNITS (25 MCG) TAB PO SCH (08:33)
[2023-07-09] MEDS: Atorvastatin Calcium 40 MG TAB PO SCH (08:34)
[2023-07-09] MEDS: EVEROLIMUS 0.5 MG PO SCH (08:34)
[2023-07-09] MEDS: Ferrous Sulfate 325 MG TAB PO SCH ×3 (08:34→17:42)
[2023-07-09] MEDS: Docusate 100 MG CAP PO SCH (08:34)
[2023-07-09] MEDS: Sodium Chloride 0.9% 1,000 ML IV SCH (08:34)
[2023-07-09] MEDS: Sodium Bicarbonate Tab 325 MG TAB PO SCH ×2 (08:34→15:27)
[2023-07-09] MEDS: Multivit, Therapeutic 1 TAB PO SCH (08:34)
[2023-07-09 09:02] LABS: Hematocrit 35.5 % (42.0-52.0); Hemoglobin 11.4 g/dL (14.0-18.0)
[2023-07-09] MEDS: HYDROcodone/Acetaminophen 10/325 mg Tablet PO PRN (09:08)
[2023-07-09] MEDS: Tacrolimus 1 MG CAP PO SCH (10:56)
[2023-07-09] MEDS: HYDROcodone/Acetaminophen 5/325 mg Tablet PO PRN (17:42)
[2023-07-09 18:16] VITALS: BP 103/53; TEMP 98.1
== END 2023-07-09 19:25 | DRG 516 ==
LOC: SDC 06:09 → T4-A 11:39 → OBSVTOIN 07-08 09:11
PROVIDERS: ADMIT Surgery; ATTEND Surgery
PROC: 01NB0ZZ Release Lumbar Nerve, Open Approach (ICD-10-PCS; principal; 2023-07-07)
PROC: 30233N1 Transfusion of Nonautologous Red Blood Cells into Peripheral Vein, Percutaneous Approach (ICD-10-PCS; 2023-07-08)
DX: M48.062 Spinal stenosis, lumbar region with neurogenic claudication (principal); Z94.4 Liver transplant status; M54.16 Radiculopathy, lumbar region; F17.220 Nicotine dependence, chewing tobacco, uncomplicated; Z79.899 Other long term (current) drug therapy; D64.9 Anemia, unspecified
CPT/HCPCS: 36415; 36430; 80048; 85025; 86850; 86900; 86901; 94640; 96365; 96376; A4314; G0378; J1100; J1170; J1940; J2370; J2405; J2704; J3010; J3370; J3490; J7050; J7507; J7626; P9016

== ENCOUNTER 2023-07-10 20:58 | Inpatient (IN) | payer MEDICARE ==
[2023-07-10] MEDS ORDERED: cefTRIAXone (ROCEPHIN) 1 GM VIAL ONE (22:12)
[2023-07-10 22:28] LABS: ALT (SGPT) Less than 7 U/L (8-55); AST (SGOT) 25 U/L (5-34); Albumin 2.9 g/dL (3.4-4.8); Alkaline Phosphatase 152 U/L (40-110); Anion Gap 20 mmol/L (10-20); BUN (Urea Nitrogen) 34 mg/dL (8.4-25.7); Bilirubin, Total 0.9 mg/dL (0.2-1.2); Calc. Creatinine Clearance 0 mL/min (70-130); Calcium 8.2 mg/dL (7.8-10.44); Carbon Dioxide 15 mmol/L (23-31); Chloride 107 mmol/L (98-107); Estimated GFR 26; Globulin 2.5 g/dL (2.4-3.5); Glucose 106 mg/dL (83-110); Potassium 4.7 mmol/L (3.5-5.1); Protein, Total 5.4 g/dL (5.8-8.1); Sodium 137 mmol/L (136-145)
[2023-07-10 22:35] LABS: CRP (Inflammatory) 28.03 mg/dL (= or < 0.5); Lipase Less than 4 U/L (8-78); Magnesium 1.7 mg/dL (1.6-2.6)
[2023-07-10 23:11] LABS: Troponin I 0.012 ng/mL (< 0.028)
[2023-07-10] MEDS ORDERED: Cefepime 2 GM VIAL ONE (23:28)
[2023-07-10 23:31] LABS: SARS-CoV-2 NAA Rapid Test Not Detected (NotDetected)
[2023-07-11 00:23] LABS: #Neutrophils 7.2 thou/uL (1.40-6.50); %Basophils 0.3 % (0.0-1.0); %Eosinophils 0.2 % (0.0-10.0); %Lymphocytes 5.4 % (21.0-51.0); %Neutrophils 82.4 % (42.0-75.0); Hematocrit 32.5 % (42.0-52.0); Hemoglobin 10.4 g/dL (14.0-18.0); Mean Corpuscular Hemoglobin 26.2 pg (27.0-31.0); Mean Corpuscular Volume 81.9 fl (78.0-98.0); Mean Platelet Volume 8.9 fL (7.4-10.4); Platelet Count 167 10x3/uL (130-400); RBC Distribution Width 15.4 % (11.5-14.5); Red Blood Cell (RBC) Count 3.97 mill/uL (4.70-6.10); White Blood Cell (WBC) Count 8.8 10x3/uL (4.8-10.8)
[2023-07-11 00:23] LABS: Bilirubin Negative (Negative); Blood, Urine 3+ (Negative); CAUTI Indications for Culture Alt mental st,lethar; Clarity Turbid (Clear); Glucose, Urine (Dipstick) Normal (Negative); Ketone, Urine 40 mg/dL (Negative); Leukocyte 500 Leu/uL (Negative); Nitrite Negative (Negative); Protein, Urine (Dipstick) 100 mg/dL (Neg-Trace); RBC/HPF Greater than 50 HPF (0-3); Specific Gravity, Urine 1.016 (1.002-1.036); Urobilinogen Normal mg/dL (Less than 2); WBC/HPF 21-50 HPF (0-3)
[2023-07-11 00:26] LABS: Bacteria/HPF Rare-Few HPF (None Seen)
[2023-07-11 00:27] LABS: Urine Culture Reflex Yes Yes
[2023-07-11] MEDS ORDERED: Vancomycin (BATCH) 1.5 GM in Premix 1 BAG IVPB SCH (01:00)
[2023-07-11 02:12] LABS: Troponin I 0.015 ng/mL (< 0.028)
[2023-07-11 02:34] VITALS: BMI 25.0
[2023-07-11] MEDS ORDERED: Lactated Ringer's 1,000 ML IV SCH (03:15)
[2023-07-11] MEDS: Lactated Ringer's 1,000 ML IV SCH ×2 (03:38→15:14)
[2023-07-11] MEDS ORDERED: Vancomycin Dose by Levels Sliding Scale (Wt 71-99) FS SCH (03:45)
[2023-07-11] MEDS ORDERED: Milk Of Magnesia 30 ML UDCUP PO PRN (03:58)
[2023-07-11] MEDS ORDERED: Bisacodyl 10 MG SUPP PR PRN (03:58)
[2023-07-11] MEDS ORDERED: HYDROcodone/Acetaminophen 5/325 mg Tablet PO PRN (03:58)
[2023-07-11] MEDS ORDERED: Simethicone Chewable 80 MG TAB PO PRN (04:20)
[2023-07-11 06:36] LABS: #Eosinphils 0.1 thou/uL (0.0-0.7); #Monocytes 0.9 thou/uL (0.11-0.59); #Neutrophils 5.7 thou/uL (1.40-6.50); %Basophils 0.1 % (0.0-1.0); %Eosinophils 0.7 % (0.0-10.0); %Lymphocytes 6.4 % (21.0-51.0); %Monocytes 12.3 % (0.0-10.0); %Neutrophils 79.8 % (42.0-75.0); Hematocrit 30.1 % (42.0-52.0); Hemoglobin 9.6 g/dL (14.0-18.0); Mean Corpuscular HGB CONC 31.9 g/dL (32.0-36.0); Mean Corpuscular Hemoglobin 26.2 pg (27.0-31.0); Mean Corpuscular Volume 82.2 fl (78.0-98.0); Mean Platelet Volume 9.3 fL (7.4-10.4); Platelet Count 162 10x3/uL (130-400); RBC Distribution Width 15.4 % (11.5-14.5); Red Blood Cell (RBC) Count 3.66 mill/uL (4.70-6.10); White Blood Cell (WBC) Count 7.2 10x3/uL (4.8-10.8)
[2023-07-11] MEDS ORDERED: Ipratropium Bromide 2.5 ml Neb NEB SCH (07:00)
[2023-07-11 07:38] LABS: Troponin I Less than 0.010 ng/mL (< 0.028)
[2023-07-11] MEDS: Ipratropium Bromide 2.5 ml Neb NEB SCH ×4 (07:39→19:00)
[2023-07-11 07:40] LABS: ALT (SGPT) Less than 7 U/L (8-55); AST (SGOT) 22 U/L (5-34); Albumin 2.9 g/dL (3.4-4.8); Alkaline Phosphatase 126 U/L (40-110); Anion Gap 13 mmol/L (10-20); BUN (Urea Nitrogen) 36 mg/dL (8.4-25.7); Bilirubin, Total 0.4 mg/dL (0.2-1.2); Calc. Creatinine Clearance 29 mL/min (70-130); Calcium 8.2 mg/dL (7.8-10.44); Carbon Dioxide 20 mmol/L (23-31); Chloride 110 mmol/L (98-107); Estimated GFR 28; Globulin 2.3 g/dL (2.4-3.5); Glucose 106 mg/dL (83-110); Potassium 4.2 mmol/L (3.5-5.1); Protein, Total 5.2 g/dL (5.8-8.1); Sodium 139 mmol/L (136-145)
[2023-07-11] MEDS: Budesonide 0.5 MG/2 ML NEB NEB SCH (07:41)
[2023-07-11] MEDS: Alogliptin 6.25 MG TAB PO SCH (08:36)
[2023-07-11] MEDS: Sodium Bicarbonate Tab 325 MG TAB PO SCH ×3 (08:36→20:32)
[2023-07-11] MEDS: Cefepime 1 GM in Sodium Chloride 0.9% 100 ML IVPB SCH ×2 (08:36→20:32)
[2023-07-11] MEDS: Calcium Carbonate 500 MG TAB PO SCH (08:37)
[2023-07-11] MEDS: Atorvastatin Calcium 40 MG TAB PO SCH (08:37)
[2023-07-11] MEDS: Furosemide 20 MG TAB PO SCH (08:37)
[2023-07-11] MEDS: Multivitamin W/ Minerals 1 TAB PO SCH (08:37)
[2023-07-11] MEDS: Cholecalciferol 1,000 UNITS (25 MCG) TAB PO SCH (08:37)
[2023-07-11] MEDS: Lisinopril 5 MG TAB PO SCH (08:37)
[2023-07-11] MEDS: Docusate 100 MG CAP PO SCH ×2 (08:37→20:31)
[2023-07-11 08:42] LABS: Legionella Urinary Ag Negative (Negative); Strep pneumo Urine Ag NEGATIVE (NEGATIVE)
[2023-07-11] MEDS: Tacrolimus 1 MG CAP PO SCH ×2 (08:55→20:32)
[2023-07-11] MEDS ORDERED: Vancomycin 1 GM in Premix 1 BAG IVPB SCH (09:00)
[2023-07-11] MEDS ORDERED: Amlodipine 5 MG TAB PO SCH (09:00)
[2023-07-11] MEDS ORDERED: Non-Formulary Item 1 EACH (Denosumab 60 MG/ML Vial) SC SCH (09:00)
[2023-07-11] MEDS: Fluticasone Propionate Nasal Spray 16 gm Bottle NASAL SCH (10:37)
[2023-07-11] MEDS: Tamsulosin HCl 0.4 MG CAP PO SCH (20:32)
[2023-07-12 00:46] LABS: Vancomycin, Random 18.1 ug/mL (See Comment)
[2023-07-12] MEDS ORDERED: Vancomycin HCl 750 MG in Sodium Chloride 0.9% 250 ML 250 ML IVPB SCH (01:00)
[2023-07-12] MEDS: Budesonide 0.5 MG/2 ML NEB NEB SCH (07:09)
[2023-07-12] MEDS: Ipratropium Bromide 2.5 ml Neb NEB SCH ×4 (07:20→19:23)
[2023-07-12 08:09] LABS: #Eosinphils 0.1 thou/uL (0.0-0.7); #Monocytes 0.6 thou/uL (0.11-0.59); #Neutrophils 3.6 thou/uL (1.40-6.50); %Basophils 0.4 % (0.0-1.0); %Eosinophils 2.6 % (0.0-10.0); %Lymphocytes 7.5 % (21.0-51.0); %Monocytes 11.8 % (0.0-10.0); %Neutrophils 77.5 % (42.0-75.0); Hematocrit 27.7 % (42.0-52.0); Mean Corpuscular HGB CONC 32.5 g/dL (32.0-36.0); Mean Corpuscular Hemoglobin 26.4 pg (27.0-31.0); Mean Corpuscular Volume 81.2 fl (78.0-98.0); Mean Platelet Volume 9.1 fL (7.4-10.4); Platelet Count 154 10x3/uL (130-400); RBC Distribution Width 15.1 % (11.5-14.5); Red Blood Cell (RBC) Count 3.41 mill/uL (4.70-6.10); White Blood Cell (WBC) Count 4.7 10x3/uL (4.8-10.8)
[2023-07-12 08:36] LABS: ALT (SGPT) 7 U/L (8-55); AST (SGOT) 23 U/L (5-34); Albumin 2.7 g/dL (3.4-4.8); Alkaline Phosphatase 114 U/L (40-110); Anion Gap 16 mmol/L (10-20); BUN (Urea Nitrogen) 33 mg/dL (8.4-25.7); Bilirubin, Total 0.4 mg/dL (0.2-1.2); Calc. Creatinine Clearance 34 mL/min (70-130); Calcium 7.7 mg/dL (7.8-10.44); Carbon Dioxide 18 mmol/L (23-31); Chloride 110 mmol/L (98-107); Estimated GFR 34; Globulin 2.3 g/dL (2.4-3.5); Glucose 87 mg/dL (83-110); Potassium 3.4 mmol/L (3.5-5.1); Sodium 141 mmol/L (136-145)
[2023-07-12] MEDS: Fluticasone Propionate Nasal Spray 16 gm Bottle NASAL SCH (08:52)
[2023-07-12] MEDS: Cefepime 1 GM in Sodium Chloride 0.9% 100 ML IVPB SCH ×2 (08:52→20:41)
[2023-07-12] MEDS: Calcium Carbonate 500 MG TAB PO SCH (08:52)
[2023-07-12] MEDS: Furosemide 20 MG TAB PO SCH (08:52)
[2023-07-12] MEDS: Sodium Bicarbonate Tab 325 MG TAB PO SCH ×3 (08:53→20:42)
[2023-07-12] MEDS: Docusate 100 MG CAP PO SCH ×2 (08:53→20:42)
[2023-07-12] MEDS: Multivitamin W/ Minerals 1 TAB PO SCH (08:53)
[2023-07-12] MEDS: Lisinopril 5 MG TAB PO SCH (08:53)
[2023-07-12] MEDS: Alogliptin 6.25 MG TAB PO SCH (08:53)
[2023-07-12] MEDS: Atorvastatin Calcium 40 MG TAB PO SCH (08:53)
[2023-07-12] MEDS: Cholecalciferol 1,000 UNITS (25 MCG) TAB PO SCH (08:53)
[2023-07-12] MEDS: Lactated Ringer's 1,000 ML IV SCH ×3 (08:54→17:47)
[2023-07-12] MEDS: Tacrolimus 1 MG CAP PO SCH ×2 (09:05→20:43)
[2023-07-12] MEDS ORDERED: Potassium Chloride 20 MEQ TAB PO SCH (09:15)
[2023-07-12] MEDS: Tamsulosin HCl 0.4 MG CAP PO SCH (20:42)
[2023-07-13 01:34] LABS: Vancomycin, Random 18.5 ug/mL (See Comment)
[2023-07-13] MEDS ORDERED: Vancomycin HCl 750 MG in Sodium Chloride 0.9% 250 ML 250 ML IVPB SCH (02:00)
[2023-07-13] MEDS: Lactated Ringer's 1,000 ML IV SCH ×3 (02:38→18:40)
[2023-07-13 06:28] LABS: Bacteria/HPF None Seen HPF (None Seen); Bilirubin Negative (Negative); Blood, Urine 3+ (Negative); Clarity Turbid (Clear); Glucose, Urine (Dipstick) 70 mg/dL (Negative); Ketone, Urine 60 mg/dL (Negative); Leukocyte Negative Leu/uL (Negative); Nitrite Negative (Negative); Protein, Urine (Dipstick) 300 mg/dL (Neg-Trace); RBC/HPF Greater than 50 HPF (0-3); Specific Gravity, Urine 1.017 (1.002-1.036); Squamous Epithelial 0-3 HPF (0-3); Urobilinogen Normal mg/dL (Less than 2); WBC/HPF 21-50 HPF (0-3); pH, Urine 6.5 (5.0-9.0)
[2023-07-13] MEDS: Budesonide 0.5 MG/2 ML NEB NEB SCH ×2 (07:02→07:04)
[2023-07-13] MEDS: Ipratropium Bromide 2.5 ml Neb NEB SCH ×4 (07:05→19:48)
[2023-07-13] MEDS: Alogliptin 6.25 MG TAB PO SCH (08:01)
[2023-07-13] MEDS: Simethicone Chewable 80 MG TAB PO SCH ×3 (08:01→20:32)
[2023-07-13] MEDS: Docusate 100 MG CAP PO SCH ×2 (08:01→20:32)
[2023-07-13] MEDS: Calcium Carbonate 500 MG TAB PO SCH (08:01)
[2023-07-13] MEDS: Furosemide 20 MG TAB PO SCH (08:01)
[2023-07-13] MEDS: Atorvastatin Calcium 40 MG TAB PO SCH (08:01)
[2023-07-13] MEDS: Cholecalciferol 1,000 UNITS (25 MCG) TAB PO SCH (08:02)
[2023-07-13] MEDS: Lisinopril 5 MG TAB PO SCH (08:02)
[2023-07-13] MEDS: Cefepime 1 GM in Sodium Chloride 0.9% 100 ML IVPB SCH ×2 (08:02→20:33)
[2023-07-13] MEDS: Fluticasone Propionate Nasal Spray 16 gm Bottle NASAL SCH (08:03)
[2023-07-13] MEDS: Multivitamin W/ Minerals 1 TAB PO SCH (08:04)
[2023-07-13] MEDS: Sodium Bicarbonate Tab 325 MG TAB PO SCH ×3 (08:06→20:32)
[2023-07-13] MEDS: Tacrolimus 1 MG CAP PO SCH ×2 (08:07→20:32)
[2023-07-13] MEDS: Calcitriol 0.25 MCG CAP PO SCH (08:47)
[2023-07-13 10:16] LABS: #Monocytes 0.4 thou/uL (0.11-0.59); #Neutrophils 3.6 thou/uL (1.40-6.50); %Basophils 0.2 % (0.0-1.0); %Eosinophils 0.9 % (0.0-10.0); %Lymphocytes 6.6 % (21.0-51.0); %Monocytes 9.4 % (0.0-10.0); Hematocrit 33.2 % (42.0-52.0); Hemoglobin 10.5 g/dL (14.0-18.0); Mean Corpuscular HGB CONC 31.6 g/dL (32.0-36.0); Mean Corpuscular Hemoglobin 25.7 pg (27.0-31.0); Mean Corpuscular Volume 81.4 fl (78.0-98.0); Platelet Count 171 10x3/uL (130-400); RBC Distribution Width 14.7 % (11.5-14.5); Red Blood Cell (RBC) Count 4.08 mill/uL (4.70-6.10); White Blood Cell (WBC) Count 4.4 10x3/uL (4.8-10.8)
[2023-07-13 10:41] LABS: Anion Gap 19 mmol/L (10-20); BUN (Urea Nitrogen) 30 mg/dL (8.4-25.7); Calc. Creatinine Clearance 34 mL/min (70-130); Carbon Dioxide 16 mmol/L (23-31); Chloride 110 mmol/L (98-107); Potassium 3.4 mmol/L (3.5-5.1); Sodium 142 mmol/L (136-145)
[2023-07-13 10:42] LABS: ALT (SGPT) 10 U/L (8-55); AST (SGOT) 23 U/L (5-34); Alkaline Phosphatase 133 U/L (40-110); Bilirubin, Total 0.5 mg/dL (0.2-1.2); Calcium 7.9 mg/dL (7.8-10.44); Estimated GFR 35; Globulin 2.4 g/dL (2.4-3.5); Glucose 141 mg/dL (83-110); Protein, Total 5.4 g/dL (5.8-8.1)
[2023-07-13] MEDS: Tamsulosin HCl 0.4 MG CAP PO SCH (20:32)
[2023-07-14] MEDS: Simethicone Chewable 80 MG TAB PO SCH ×4 (02:42→20:14)
[2023-07-14] MEDS: Lactated Ringer's 1,000 ML IV SCH ×2 (02:49→11:48)
[2023-07-14 03:50] LABS: #Eosinphils 0.1 thou/uL (0.0-0.7); #Monocytes 0.5 thou/uL (0.11-0.59); #Neutrophils 3.4 thou/uL (1.40-6.50); %Basophils 0.5 % (0.0-1.0); %Eosinophils 1.8 % (0.0-10.0); %Lymphocytes 6.5 % (21.0-51.0); %Monocytes 11.8 % (0.0-10.0); %Neutrophils 78.2 % (42.0-75.0); Hemoglobin 10.1 g/dL (14.0-18.0); Mean Corpuscular HGB CONC 32.6 g/dL (32.0-36.0); Mean Corpuscular Volume 79.9 fl (78.0-98.0); Platelet Count 155 10x3/uL (130-400); RBC Distribution Width 14.6 % (11.5-14.5); Red Blood Cell (RBC) Count 3.88 mill/uL (4.70-6.10); White Blood Cell (WBC) Count 4.3 10x3/uL (4.8-10.8)
[2023-07-14 04:14] LABS: ALT (SGPT) 14 U/L (8-55); AST (SGOT) 26 U/L (5-34); Albumin 2.8 g/dL (3.4-4.8); Alkaline Phosphatase 131 U/L (40-110); Anion Gap 17 mmol/L (10-20); BUN (Urea Nitrogen) 31 mg/dL (8.4-25.7); Bilirubin, Total 0.6 mg/dL (0.2-1.2); Calc. Creatinine Clearance 32 mL/min (70-130); Calcium 7.4 mg/dL (7.8-10.44); Carbon Dioxide 19 mmol/L (23-31); Chloride 112 mmol/L (98-107); Estimated GFR 33; Globulin 1.6 g/dL (2.4-3.5); Glucose 117 mg/dL (83-110); Potassium 3.4 mmol/L (3.5-5.1); Protein, Total 4.4 g/dL (5.8-8.1); Sodium 145 mmol/L (136-145)
[2023-07-14 04:17] LABS: Vancomycin, Random 19.8 ug/mL (See Comment)
[2023-07-14] MEDS ORDERED: Vancomycin HCl 500 MG in Sodium Chloride 0.9% 100 ML IV SCH (05:00)
[2023-07-14] MEDS ORDERED: Potassium Chloride 20 MEQ TAB PO SCH (08:00)
[2023-07-14] MEDS: Alogliptin 25 MG TAB PO SCH (08:57)
[2023-07-14] MEDS: Multivitamin W/ Minerals 1 TAB PO SCH (08:57)
[2023-07-14] MEDS: Atorvastatin Calcium 40 MG TAB PO SCH (08:57)
[2023-07-14] MEDS: Docusate 100 MG CAP PO SCH ×2 (08:57→20:14)
[2023-07-14] MEDS: Lisinopril 5 MG TAB PO SCH (08:57)
[2023-07-14] MEDS: Furosemide 20 MG TAB PO SCH (08:57)
[2023-07-14] MEDS: Calcium Carbonate 500 MG TAB PO SCH (08:57)
[2023-07-14] MEDS: Cholecalciferol 1,000 UNITS (25 MCG) TAB PO SCH (08:57)
[2023-07-14] MEDS: Tacrolimus 1 MG CAP PO SCH ×2 (08:58→20:15)
[2023-07-14] MEDS: Cefepime 1 GM in Sodium Chloride 0.9% 100 ML IVPB SCH (08:58)
[2023-07-14] MEDS: Sodium Bicarbonate Tab 325 MG TAB PO SCH ×3 (08:58→20:14)
[2023-07-14] MEDS: Fluticasone Propionate Nasal Spray 16 gm Bottle NASAL SCH (08:59)
[2023-07-14 09:18] LABS: Magnesium 1.5 mg/dL (1.6-2.6)
[2023-07-14] MEDS: Magnesium Oxide 400 MG TAB PO SCH ×2 (10:03→20:14)
[2023-07-14] MEDS: Ipratropium Bromide 2.5 ml Neb NEB SCH (11:41)
[2023-07-14] MEDS: Ipratropium/Albuterol 3 ML NEB NEB SCH ×2 (18:16→18:51)
[2023-07-14] MEDS: Mometasone 100 MCG HFA INHALER (RT USE) INH SCH (18:51)
[2023-07-14] MEDS: Tamsulosin HCl 0.4 MG CAP PO SCH (20:14)
[2023-07-15] MEDS: Ipratropium/Albuterol 3 ML NEB NEB SCH ×4 (02:25→19:24)
[2023-07-15] MEDS: Simethicone Chewable 80 MG TAB PO SCH ×4 (02:39→20:34)
[2023-07-15] MEDS: LevoFLOXacin 750 MG TAB PO SCH (05:52)
[2023-07-15 06:55] LABS: #Eosinphils 0.1 thou/uL (0.0-0.7); #Monocytes 0.6 thou/uL (0.11-0.59); #Neutrophils 4.6 thou/uL (1.40-6.50); %Basophils 0.7 % (0.0-1.0); %Eosinophils 1.9 % (0.0-10.0); %Monocytes 10.6 % (0.0-10.0); %Neutrophils 78.4 % (42.0-75.0); Hematocrit 34.6 % (42.0-52.0); Hemoglobin 11.3 g/dL (14.0-18.0); Mean Corpuscular HGB CONC 32.7 g/dL (32.0-36.0); Mean Corpuscular Hemoglobin 25.9 pg (27.0-31.0); Mean Corpuscular Volume 79.2 fl (78.0-98.0); Mean Platelet Volume 9.1 fL (7.4-10.4); Platelet Count 170 10x3/uL (130-400); RBC Distribution Width 14.9 % (11.5-14.5); Red Blood Cell (RBC) Count 4.37 mill/uL (4.70-6.10); White Blood Cell (WBC) Count 5.9 10x3/uL (4.8-10.8)
[2023-07-15 07:20] LABS: ALT (SGPT) 19 U/L (8-55); AST (SGOT) 25 U/L (5-34); Alkaline Phosphatase 132 U/L (40-110); Anion Gap 17 mmol/L (10-20); BUN (Urea Nitrogen) 32 mg/dL (8.4-25.7); Bilirubin, Total 0.5 mg/dL (0.2-1.2); Calc. Creatinine Clearance 32 mL/min (70-130); Calcium 7.5 mg/dL (7.8-10.44); Carbon Dioxide 18 mmol/L (23-31); Chloride 112 mmol/L (98-107); Estimated GFR 32; Globulin 1.8 g/dL (2.4-3.5); Glucose 117 mg/dL (83-110); Potassium 3.7 mmol/L (3.5-5.1); Protein, Total 4.8 g/dL (5.8-8.1); Sodium 143 mmol/L (136-145)
[2023-07-15 07:21] LABS: Vancomycin, Random 19.7 ug/mL (See Comment)
[2023-07-15] MEDS: Mometasone 100 MCG HFA INHALER (RT USE) INH SCH ×2 (07:28→19:24)
[2023-07-15] MEDS ORDERED: Vancomycin HCl 500 MG in Sodium Chloride 0.9% 100 ML IV SCH (08:00)
[2023-07-15] MEDS: Calcium Carbonate 500 MG TAB PO SCH (09:05)
[2023-07-15] MEDS: Cholecalciferol 1,000 UNITS (25 MCG) TAB PO SCH (09:05)
[2023-07-15] MEDS: Atorvastatin Calcium 40 MG TAB PO SCH (09:05)
[2023-07-15] MEDS: Alogliptin 25 MG TAB PO SCH (09:05)
[2023-07-15] MEDS: Multivitamin W/ Minerals 1 TAB PO SCH (09:06)
[2023-07-15] MEDS: Docusate 100 MG CAP PO SCH ×2 (09:06→20:34)
[2023-07-15] MEDS: Furosemide 20 MG TAB PO SCH (09:06)
[2023-07-15] MEDS: Sodium Bicarbonate Tab 325 MG TAB PO SCH ×3 (09:06→20:35)
[2023-07-15] MEDS: Magnesium Oxide 400 MG TAB PO SCH ×2 (09:06→20:34)
[2023-07-15] MEDS: Tacrolimus 1 MG CAP PO SCH ×2 (09:06→20:35)
[2023-07-15] MEDS: Lisinopril 5 MG TAB PO SCH (09:06)
[2023-07-15] MEDS: Calcitriol 0.25 MCG CAP PO SCH (09:07)
[2023-07-15] MEDS: Fluticasone Propionate Nasal Spray 16 gm Bottle NASAL SCH (09:07)
[2023-07-15 09:28] LABS: Magnesium 1.6 mg/dL (1.6-2.6)
[2023-07-15] MEDS: Tamsulosin HCl 0.4 MG CAP PO SCH (20:35)
[2023-07-16] MEDS: Ipratropium/Albuterol 3 ML NEB NEB SCH ×5 (00:03→23:20)
[2023-07-16] MEDS: Simethicone Chewable 80 MG TAB PO SCH ×4 (03:20→20:59)
[2023-07-16 05:13] LABS: Tacrolimus 13.5 ng/mL (2.0-20.0)
[2023-07-16] MEDS: LevoFLOXacin 750 MG TAB PO SCH (05:59)
[2023-07-16] MEDS: Mometasone 100 MCG HFA INHALER (RT USE) INH SCH ×2 (07:16→18:58)
[2023-07-16] MEDS: Fluticasone Propionate Nasal Spray 16 gm Bottle NASAL SCH (07:34)
[2023-07-16] MEDS: Furosemide 20 MG TAB PO SCH (07:34)
[2023-07-16] MEDS: Tacrolimus 1 MG CAP PO SCH ×2 (07:34→20:48)
[2023-07-16] MEDS: Lisinopril 5 MG TAB PO SCH (07:35)
[2023-07-16] MEDS: Cholecalciferol 1,000 UNITS (25 MCG) TAB PO SCH (07:35)
[2023-07-16] MEDS: Sodium Bicarbonate Tab 325 MG TAB PO SCH ×3 (07:35→20:48)
[2023-07-16] MEDS: Calcium Carbonate 500 MG TAB PO SCH (07:35)
[2023-07-16] MEDS: Magnesium Oxide 400 MG TAB PO SCH ×2 (07:35→20:48)
[2023-07-16] MEDS: Alogliptin 25 MG TAB PO SCH (07:36)
[2023-07-16] MEDS: Atorvastatin Calcium 40 MG TAB PO SCH (07:36)
[2023-07-16] MEDS: Docusate 100 MG CAP PO SCH ×2 (07:36→21:00)
[2023-07-16] MEDS: Multivitamin W/ Minerals 1 TAB PO SCH (07:36)
[2023-07-16 09:57] LABS: #Eosinphils 0.1 thou/uL (0.0-0.7); #Monocytes 0.5 thou/uL (0.11-0.59); #Neutrophils 4.6 thou/uL (1.40-6.50); %Basophils 0.5 % (0.0-1.0); %Eosinophils 1.6 % (0.0-10.0); %Lymphocytes 6.1 % (21.0-51.0); %Monocytes 8.9 % (0.0-10.0); Hematocrit 29.2 % (42.0-52.0); Hemoglobin 9.4 g/dL (14.0-18.0); Mean Corpuscular HGB CONC 32.2 g/dL (32.0-36.0); Mean Corpuscular Hemoglobin 25.8 pg (27.0-31.0); Mean Corpuscular Volume 80.2 fl (78.0-98.0); Mean Platelet Volume 9.3 fL (7.4-10.4); Platelet Count 169 10x3/uL (130-400); RBC Distribution Width 15.1 % (11.5-14.5); Red Blood Cell (RBC) Count 3.64 mill/uL (4.70-6.10); White Blood Cell (WBC) Count 5.7 10x3/uL (4.8-10.8)
[2023-07-16 10:27] LABS: ALT (SGPT) 18 U/L (8-55); AST (SGOT) 18 U/L (5-34); Albumin 2.9 g/dL (3.4-4.8); Alkaline Phosphatase 118 U/L (40-110); Anion Gap 16 mmol/L (10-20); BUN (Urea Nitrogen) 30 mg/dL (8.4-25.7); Bilirubin, Total 0.3 mg/dL (0.2-1.2); Calc. Creatinine Clearance 29 mL/min (70-130); Calcium 7.5 mg/dL (7.8-10.44); Carbon Dioxide 20 mmol/L (23-31); Chloride 109 mmol/L (98-107); Estimated GFR 29; Globulin 2.2 g/dL (2.4-3.5); Glucose 118 mg/dL (83-110); Protein, Total 5.1 g/dL (5.8-8.1); Sodium 142 mmol/L (136-145)
[2023-07-16] MEDS ORDERED: Potassium Chloride 20 MEQ TAB PO SCH (11:00)
[2023-07-16 11:13] LABS: Magnesium 1.6 mg/dL (1.6-2.6)
[2023-07-16 16:00] LABS: Bilirubin Negative (Negative); Blood, Urine 3+ (Negative); CAUTI Indications for Culture Pelvic or flank pain; Clarity Turbid (Clear); Glucose, Urine (Dipstick) Normal (Negative); Ketone, Urine 40 mg/dL (Negative); Leukocyte Negative Leu/uL (Negative); Nitrite Negative (Negative); Protein, Urine (Dipstick) 200 mg/dL (Neg-Trace); RBC/HPF Greater than 50 HPF (0-3); Specific Gravity, Urine 1.015 (1.002-1.036); Urobilinogen Normal mg/dL (Less than 2); WBC/HPF 0-3 HPF (0-3)
[2023-07-16 16:02] LABS: Bacteria/HPF 1+ HPF (None Seen)
[2023-07-16 16:04] LABS: Urine Culture Reflex No No
[2023-07-16] MEDS: Potassium Chloride 20 MEQ TAB PO SCH (17:05)
[2023-07-16] MEDS: Tamsulosin HCl 0.4 MG CAP PO SCH (20:48)
[2023-07-17] MEDS: Simethicone Chewable 80 MG TAB PO SCH ×4 (02:28→21:18)
[2023-07-17 05:49] LABS: #Eosinphils 0.1 thou/uL (0.0-0.7); #Monocytes 0.6 thou/uL (0.11-0.59); %Basophils 0.4 % (0.0-1.0); %Eosinophils 1.9 % (0.0-10.0); %Monocytes 11.4 % (0.0-10.0); %Neutrophils 75.3 % (42.0-75.0); Hematocrit 26.6 % (42.0-52.0); Hemoglobin 8.6 g/dL (14.0-18.0); Mean Corpuscular HGB CONC 32.3 g/dL (32.0-36.0); Mean Corpuscular Hemoglobin 26.1 pg (27.0-31.0); Mean Corpuscular Volume 80.9 fl (78.0-98.0); Mean Platelet Volume 9.4 fL (7.4-10.4); Platelet Count 156 10x3/uL (130-400); RBC Distribution Width 15.2 % (11.5-14.5); Red Blood Cell (RBC) Count 3.29 mill/uL (4.70-6.10); White Blood Cell (WBC) Count 5.3 10x3/uL (4.8-10.8)
[2023-07-17 06:18] LABS: ALT (SGPT) 16 U/L (8-55); AST (SGOT) 16 U/L (5-34); Albumin 2.7 g/dL (3.4-4.8); Alkaline Phosphatase 102 U/L (40-110); Anion Gap 15 mmol/L (10-20); BUN (Urea Nitrogen) 29 mg/dL (8.4-25.7); Bilirubin, Total 0.2 mg/dL (0.2-1.2); Calc. Creatinine Clearance 27 mL/min (70-130); Calcium 7.2 mg/dL (7.8-10.44); Carbon Dioxide 19 mmol/L (23-31); Chloride 111 mmol/L (98-107); Estimated GFR 26; Glucose 96 mg/dL (83-110); Potassium 3.8 mmol/L (3.5-5.1); Protein, Total 4.7 g/dL (5.8-8.1); Sodium 141 mmol/L (136-145)
[2023-07-17] MEDS: Ipratropium/Albuterol 3 ML NEB NEB SCH ×4 (07:15→23:09)
[2023-07-17] MEDS: Mometasone 100 MCG HFA INHALER (RT USE) INH SCH ×2 (07:26→18:43)
[2023-07-17] MEDS: Multivitamin W/ Minerals 1 TAB PO SCH (10:01)
[2023-07-17] MEDS: Furosemide 20 MG TAB PO SCH (10:01)
[2023-07-17] MEDS: Calcium Carbonate 500 MG TAB PO SCH (10:01)
[2023-07-17] MEDS: Magnesium Oxide 400 MG TAB PO SCH ×2 (10:01→21:18)
[2023-07-17] MEDS: Docusate 100 MG CAP PO SCH ×2 (10:01→21:18)
[2023-07-17] MEDS: Cholecalciferol 1,000 UNITS (25 MCG) TAB PO SCH (10:02)
[2023-07-17] MEDS: Atorvastatin Calcium 40 MG TAB PO SCH (10:02)
[2023-07-17] MEDS: Alogliptin 25 MG TAB PO SCH (10:02)
[2023-07-17] MEDS: Sodium Bicarbonate Tab 325 MG TAB PO SCH ×3 (10:02→21:18)
[2023-07-17] MEDS: Lisinopril 5 MG TAB PO SCH (10:04)
[2023-07-17] MEDS: Potassium Chloride 20 MEQ TAB PO SCH ×2 (10:05→18:09)
[2023-07-17] MEDS: Fluticasone Propionate Nasal Spray 16 gm Bottle NASAL SCH (10:05)
[2023-07-17] MEDS: Calcitriol 0.25 MCG CAP PO SCH (11:24)
[2023-07-17] MEDS: Tacrolimus 1 MG CAP PO SCH ×2 (11:24→21:18)
[2023-07-17] MEDS: Ferrous Sulfate 325 MG TAB PO SCH ×2 (13:51→18:09)
[2023-07-17] MEDS: Tamsulosin HCl 0.4 MG CAP PO SCH (21:18)
[2023-07-18] MEDS: Simethicone Chewable 80 MG TAB PO SCH ×4 (03:06→19:59)
[2023-07-18 05:57] LABS: #Eosinphils 0.1 thou/uL (0.0-0.7); #Monocytes 0.6 thou/uL (0.11-0.59); #Neutrophils 4.2 thou/uL (1.40-6.50); %Basophils 0.4 % (0.0-1.0); %Eosinophils 2.5 % (0.0-10.0); %Lymphocytes 6.3 % (21.0-51.0); %Monocytes 10.8 % (0.0-10.0); %Neutrophils 75.8 % (42.0-75.0); Hematocrit 27.4 % (42.0-52.0); Hemoglobin 8.9 g/dL (14.0-18.0); Mean Corpuscular HGB CONC 32.5 g/dL (32.0-36.0); Mean Corpuscular Hemoglobin 26.4 pg (27.0-31.0); Mean Corpuscular Volume 81.3 fl (78.0-98.0); Mean Platelet Volume 9.4 fL (7.4-10.4); Platelet Count 192 10x3/uL (130-400); RBC Distribution Width 15.5 % (11.5-14.5); Red Blood Cell (RBC) Count 3.37 mill/uL (4.70-6.10); White Blood Cell (WBC) Count 5.5 10x3/uL (4.8-10.8)
[2023-07-18 06:26] LABS: ALT (SGPT) 18 U/L (8-55); AST (SGOT) 16 U/L (5-34); Albumin 2.8 g/dL (3.4-4.8); Alkaline Phosphatase 104 U/L (40-110); Anion Gap 13 mmol/L (10-20); BUN (Urea Nitrogen) 28 mg/dL (8.4-25.7); Bilirubin, Total 0.2 mg/dL (0.2-1.2); Calc. Creatinine Clearance 23 mL/min (70-130); Calcium 7.1 mg/dL (7.8-10.44); Carbon Dioxide 19 mmol/L (23-31); Chloride 112 mmol/L (98-107); Estimated GFR 22; Glucose 114 mg/dL (83-110); Potassium 3.7 mmol/L (3.5-5.1); Protein, Total 4.8 g/dL (5.8-8.1); Sodium 140 mmol/L (136-145)
[2023-07-18] MEDS: Ipratropium/Albuterol 3 ML NEB NEB SCH ×3 (06:41→18:50)
[2023-07-18] MEDS: Mometasone 100 MCG HFA INHALER (RT USE) INH SCH ×2 (06:44→18:54)
[2023-07-18] MEDS: Cholecalciferol 1,000 UNITS (25 MCG) TAB PO SCH (09:14)
[2023-07-18] MEDS: Potassium Chloride 20 MEQ TAB PO SCH ×2 (09:14→17:30)
[2023-07-18] MEDS: Calcium Carbonate 500 MG TAB PO SCH (09:15)
[2023-07-18] MEDS: Docusate 100 MG CAP PO SCH ×2 (09:15→19:58)
[2023-07-18] MEDS: Alogliptin 25 MG TAB PO SCH (09:15)
[2023-07-18] MEDS: Ferrous Sulfate 325 MG TAB PO SCH ×3 (09:15→17:29)
[2023-07-18] MEDS: Magnesium Oxide 400 MG TAB PO SCH ×2 (09:15→19:59)
[2023-07-18] MEDS: Atorvastatin Calcium 40 MG TAB PO SCH (09:16)
[2023-07-18] MEDS: Sodium Bicarbonate Tab 325 MG TAB PO SCH ×3 (09:16→19:59)
[2023-07-18] MEDS: Multivitamin W/ Minerals 1 TAB PO SCH (09:16)
[2023-07-18] MEDS: Fluticasone Propionate Nasal Spray 16 gm Bottle NASAL SCH (09:16)
[2023-07-18] MEDS: Lisinopril 5 MG TAB PO SCH (09:17)
[2023-07-18] MEDS: Furosemide 20 MG TAB PO SCH (09:48)
[2023-07-18] MEDS: Tacrolimus 1 MG CAP PO SCH ×2 (09:48→19:59)
[2023-07-18] MEDS ORDERED: Sodium Bicarbonate 150 MEQ in Dextrose 5% in Water 1,000 ML IV SCH ×2 (12:00→21:00)
[2023-07-18] MEDS: Epoetin (ESRD) 10,000 UNITS/ML VIAL SC SCH (13:46)
[2023-07-18] MEDS: Lactated Ringer's 500 ML IV SCH ×2 (16:07→20:26)
[2023-07-18 18:21] LABS: Troponin I 0.142 ng/mL (< 0.028)
[2023-07-18] MEDS: Albumin 25% 25 GM/100 ML BOT IVPB SCH ×3 (18:32→23:50)
[2023-07-18] MEDS: Tamsulosin HCl 0.4 MG CAP PO SCH (19:58)
[2023-07-19 00:02] LABS: Anion Gap 16 mmol/L (10-20); BUN (Urea Nitrogen) 29 mg/dL (8.4-25.7); Calc. Creatinine Clearance 23 mL/min (70-130); Carbon Dioxide 18 mmol/L (23-31); Chloride 111 mmol/L (98-107); Estimated GFR 22; Glucose 142 mg/dL (83-110); Potassium 4.4 mmol/L (3.5-5.1); Sodium 141 mmol/L (136-145)
[2023-07-19 00:06] LABS: Calcium 6.9 mg/dL (7.8-10.44)
[2023-07-19 00:09] LABS: Magnesium 1.7 mg/dL (1.6-2.6)
[2023-07-19] MEDS ORDERED: Magnesium 2 GM/50 ML(in water) 1 GM in Premix 1 BAG IVPB SCH (00:45)
[2023-07-19] MEDS: Ipratropium/Albuterol 3 ML NEB NEB SCH ×4 (01:04→19:10)
[2023-07-19 02:09] LABS: INR-International Normal Ratio 1.3; PTT 27.6 sec (22.9-36.1); Prothrombin Time 16.8 sec (12.0-14.7)
[2023-07-19 02:12] LABS: Troponin I 0.211 ng/mL (< 0.028)
[2023-07-19] MEDS: Simethicone Chewable 80 MG TAB PO SCH ×4 (02:45→20:40)
[2023-07-19] MEDS ORDERED: CALCIUM GLUC 1 GM/NS 50 ML 1 GM in Premix 1 BAG IVPB SCH ×2 (02:45→08:00)
[2023-07-19 04:59] LABS: #Eosinphils 0.1 thou/uL (0.0-0.7); #Monocytes 0.5 thou/uL (0.11-0.59); #Neutrophils 3.3 thou/uL (1.40-6.50); %Basophils 0.2 % (0.0-1.0); %Eosinophils 2.1 % (0.0-10.0); %Lymphocytes 7.9 % (21.0-51.0); %Monocytes 10.7 % (0.0-10.0); %Neutrophils 76.5 % (42.0-75.0); Hematocrit 23.7 % (42.0-52.0); Hemoglobin 7.9 g/dL (14.0-18.0); Mean Corpuscular HGB CONC 33.3 g/dL (32.0-36.0); Mean Corpuscular Hemoglobin 26.9 pg (27.0-31.0); Mean Corpuscular Volume 80.6 fl (78.0-98.0); Mean Platelet Volume 9.2 fL (7.4-10.4); Platelet Count 171 10x3/uL (130-400); RBC Distribution Width 15.4 % (11.5-14.5); Red Blood Cell (RBC) Count 2.94 mill/uL (4.70-6.10); White Blood Cell (WBC) Count 4.3 10x3/uL (4.8-10.8)
[2023-07-19] MEDS: Albumin 25% 25 GM/100 ML BOT IVPB SCH ×2 (06:03→11:52)
[2023-07-19 06:15] LABS: ALT (SGPT) 15 U/L (8-55); AST (SGOT) 12 U/L (5-34); Albumin 3.3 g/dL (3.4-4.8); Alkaline Phosphatase 90 U/L (40-110); Anion Gap 14 mmol/L (10-20); BUN (Urea Nitrogen) 29 mg/dL (8.4-25.7); Bilirubin, Total 0.3 mg/dL (0.2-1.2); Calc. Creatinine Clearance 23 mL/min (70-130); Carbon Dioxide 20 mmol/L (23-31); Chloride 112 mmol/L (98-107); Estimated GFR 22; Globulin 1.3 g/dL (2.4-3.5); Glucose 135 mg/dL (83-110); Potassium 4.3 mmol/L (3.5-5.1); Protein, Total 4.6 g/dL (5.8-8.1); Sodium 142 mmol/L (136-145)
[2023-07-19 06:18] LABS: Calcium 6.9 mg/dL (7.8-10.44)
[2023-07-19 06:30] LABS: Troponin I 0.337 ng/mL (< 0.028)
[2023-07-19] MEDS: Mometasone 100 MCG HFA INHALER (RT USE) INH SCH ×2 (07:30→19:10)
[2023-07-19] MEDS: Potassium Chloride 20 MEQ TAB PO SCH ×2 (08:29→17:43)
[2023-07-19] MEDS: Sodium Bicarbonate Tab 325 MG TAB PO SCH ×3 (08:29→20:40)
[2023-07-19] MEDS: Tacrolimus 1 MG CAP PO SCH ×2 (08:29→20:40)
[2023-07-19] MEDS: Multivitamin W/ Minerals 1 TAB PO SCH (08:30)
[2023-07-19] MEDS: Docusate 100 MG CAP PO SCH ×2 (08:30→20:41)
[2023-07-19] MEDS: Cholecalciferol 1,000 UNITS (25 MCG) TAB PO SCH (08:30)
[2023-07-19] MEDS: Atorvastatin Calcium 40 MG TAB PO SCH (08:30)
[2023-07-19] MEDS: Ferrous Sulfate 325 MG TAB PO SCH ×3 (08:31→17:44)
[2023-07-19] MEDS: Magnesium Oxide 400 MG TAB PO SCH ×2 (08:31→20:40)
[2023-07-19] MEDS: Calcium Carbonate 500 MG TAB PO SCH ×2 (08:32→20:40)
[2023-07-19] MEDS: Fluticasone Propionate Nasal Spray 16 gm Bottle NASAL SCH (08:37)
[2023-07-19] MEDS: Tamsulosin HCl 0.4 MG CAP PO SCH (20:40)
[2023-07-20] MEDS: Ipratropium/Albuterol 3 ML NEB NEB SCH ×4 (01:13→18:24)
[2023-07-20] MEDS: Simethicone Chewable 80 MG TAB PO SCH ×4 (02:26→20:19)
[2023-07-20 06:20] LABS: #Eosinphils 0.1 thou/uL (0.0-0.7); #Monocytes 0.6 thou/uL (0.11-0.59); #Neutrophils 3.7 thou/uL (1.40-6.50); %Basophils 0.6 % (0.0-1.0); %Eosinophils 1.9 % (0.0-10.0); %Lymphocytes 7.5 % (21.0-51.0); %Monocytes 11.4 % (0.0-10.0); %Neutrophils 77.2 % (42.0-75.0); Hemoglobin 8.3 g/dL (14.0-18.0); Mean Corpuscular HGB CONC 31.9 g/dL (32.0-36.0); Mean Corpuscular Hemoglobin 25.8 pg (27.0-31.0); Mean Corpuscular Volume 80.7 fl (78.0-98.0); Mean Platelet Volume 9.2 fL (7.4-10.4); Platelet Count 175 10x3/uL (130-400); RBC Distribution Width 15.6 % (11.5-14.5); Red Blood Cell (RBC) Count 3.22 mill/uL (4.70-6.10); White Blood Cell (WBC) Count 4.8 10x3/uL (4.8-10.8)
[2023-07-20 06:45] LABS: ALT (SGPT) 13 U/L (8-55); AST (SGOT) 13 U/L (5-34); Albumin 3.6 g/dL (3.4-4.8); Alkaline Phosphatase 91 U/L (40-110); Anion Gap 13 mmol/L (10-20); BUN (Urea Nitrogen) 26 mg/dL (8.4-25.7); Bilirubin, Total 0.3 mg/dL (0.2-1.2); Calc. Creatinine Clearance 22 mL/min (70-130); Calcium 7.3 mg/dL (7.8-10.44); Carbon Dioxide 20 mmol/L (23-31); Chloride 112 mmol/L (98-107); Estimated GFR 20; Globulin 1.7 g/dL (2.4-3.5); Glucose 110 mg/dL (83-110); Potassium 4.3 mmol/L (3.5-5.1); Protein, Total 5.3 g/dL (5.8-8.1); Sodium 141 mmol/L (136-145)
[2023-07-20] MEDS ORDERED: Lactated Ringer's 1,000 ML IV SCH ×2 (07:15→08:15)
[2023-07-20] MEDS: Mometasone 100 MCG HFA INHALER (RT USE) INH SCH ×2 (07:48→18:24)
[2023-07-20] MEDS: Tacrolimus 1 MG CAP PO SCH ×2 (08:30→20:19)
[2023-07-20] MEDS: Atorvastatin Calcium 40 MG TAB PO SCH (08:30)
[2023-07-20] MEDS: Sodium Bicarbonate Tab 325 MG TAB PO SCH ×3 (08:30→20:19)
[2023-07-20] MEDS: Multivitamin W/ Minerals 1 TAB PO SCH (08:30)
[2023-07-20] MEDS: Magnesium Oxide 400 MG TAB PO SCH ×2 (08:31→20:19)
[2023-07-20] MEDS: Potassium Chloride 20 MEQ TAB PO SCH ×2 (08:31→15:34)
[2023-07-20] MEDS: Calcitriol 0.25 MCG CAP PO SCH (08:31)
[2023-07-20] MEDS: Cholecalciferol 1,000 UNITS (25 MCG) TAB PO SCH (08:31)
[2023-07-20] MEDS: Ferrous Sulfate 325 MG TAB PO SCH ×3 (08:31→15:34)
[2023-07-20] MEDS: Docusate 100 MG CAP PO SCH ×2 (08:31→20:20)
[2023-07-20] MEDS: Calcium Carbonate 500 MG TAB PO SCH ×2 (08:31→20:20)
[2023-07-20] MEDS: Fluticasone Propionate Nasal Spray 16 gm Bottle NASAL SCH (08:32)
[2023-07-20 11:10] LABS: Troponin I 0.496 ng/mL (< 0.028)
[2023-07-20] MEDS ORDERED: Furosemide 40 MG/4 ML VIAL SLOW IVP SCH (14:45)
[2023-07-20] MEDS: Tamsulosin HCl 0.4 MG CAP PO SCH (20:19)
[2023-07-21] MEDS: Ipratropium/Albuterol 3 ML NEB NEB SCH ×5 (01:13→22:45)
[2023-07-21] MEDS: Simethicone Chewable 80 MG TAB PO SCH ×4 (02:45→23:22)
[2023-07-21 06:17] LABS: #Eosinphils 0.1 thou/uL (0.0-0.7); #Monocytes 0.6 thou/uL (0.11-0.59); #Neutrophils 4.4 thou/uL (1.40-6.50); %Basophils 0.4 % (0.0-1.0); %Eosinophils 1.8 % (0.0-10.0); %Lymphocytes 6.3 % (21.0-51.0); %Monocytes 10.2 % (0.0-10.0); %Neutrophils 80.6 % (42.0-75.0); Hematocrit 26.9 % (42.0-52.0); Hemoglobin 8.7 g/dL (14.0-18.0); Mean Corpuscular HGB CONC 32.3 g/dL (32.0-36.0); Mean Corpuscular Hemoglobin 26.1 pg (27.0-31.0); Mean Corpuscular Volume 80.8 fl (78.0-98.0); Mean Platelet Volume 9.2 fL (7.4-10.4); Platelet Count 209 10x3/uL (130-400); RBC Distribution Width 15.5 % (11.5-14.5); Red Blood Cell (RBC) Count 3.33 mill/uL (4.70-6.10); White Blood Cell (WBC) Count 5.4 10x3/uL (4.8-10.8)
[2023-07-21 06:44] LABS: ALT (SGPT) 13 U/L (8-55); AST (SGOT) 14 U/L (5-34); Albumin 3.4 g/dL (3.4-4.8); Alkaline Phosphatase 94 U/L (40-110); Anion Gap 18 mmol/L (10-20); BUN (Urea Nitrogen) 31 mg/dL (8.4-25.7); Bilirubin, Total 0.3 mg/dL (0.2-1.2); Calc. Creatinine Clearance 20 mL/min (70-130); Calcium 7.2 mg/dL (7.8-10.44); Carbon Dioxide 17 mmol/L (23-31); Chloride 112 mmol/L (98-107); Estimated GFR 18; Globulin 1.9 g/dL (2.4-3.5); Glucose 94 mg/dL (83-110); Potassium 4.8 mmol/L (3.5-5.1); Protein, Total 5.3 g/dL (5.8-8.1); Sodium 142 mmol/L (136-145)
[2023-07-21] MEDS: Mometasone 100 MCG HFA INHALER (RT USE) INH SCH ×2 (08:00→19:31)
[2023-07-21] MEDS ORDERED: Furosemide 40 MG/4 ML VIAL SLOW IVP SCH (09:30)
[2023-07-21] MEDS: Ferrous Sulfate 325 MG TAB PO SCH ×3 (12:26→16:03)
[2023-07-21] MEDS: Calcium Carbonate 500 MG TAB PO SCH ×2 (12:27→20:02)
[2023-07-21] MEDS: Docusate 100 MG CAP PO SCH ×2 (12:28→20:02)
[2023-07-21] MEDS: Tacrolimus 1 MG CAP PO SCH ×2 (12:29→20:02)
[2023-07-21] MEDS: Potassium Chloride 20 MEQ TAB PO SCH (12:29)
[2023-07-21] MEDS: Magnesium Oxide 400 MG TAB PO SCH ×2 (12:30→20:02)
[2023-07-21] MEDS: Cholecalciferol 1,000 UNITS (25 MCG) TAB PO SCH (12:30)
[2023-07-21] MEDS: Multivitamin W/ Minerals 1 TAB PO SCH (12:30)
[2023-07-21] MEDS: Calcitriol 0.25 MCG CAP PO SCH (12:30)
[2023-07-21] MEDS: Atorvastatin Calcium 40 MG TAB PO SCH (12:32)
[2023-07-21] MEDS: Fluticasone Propionate Nasal Spray 16 gm Bottle NASAL SCH (12:32)
[2023-07-21] MEDS: Sodium Bicarbonate Tab 325 MG TAB PO SCH (12:32)
[2023-07-21] MEDS ORDERED: Furosemide 20 MG/2 ML VIAL SLOW IVP SCH (16:00)
[2023-07-21] MEDS: Tamsulosin HCl 0.4 MG CAP PO SCH (20:02)
[2023-07-22 01:37] LABS: Tacrolimus 2.8 ng/mL (2.0-20.0)
[2023-07-22] MEDS: Simethicone Chewable 80 MG TAB PO SCH ×4 (02:14→21:24)
[2023-07-22 04:24] LABS: #Eosinphils 0.1 thou/uL (0.0-0.7); #Monocytes 0.6 thou/uL (0.11-0.59); #Neutrophils 4.2 thou/uL (1.40-6.50); %Basophils 0.6 % (0.0-1.0); %Eosinophils 1.5 % (0.0-10.0); %Lymphocytes 7.6 % (21.0-51.0); %Monocytes 11.2 % (0.0-10.0); %Neutrophils 78.4 % (42.0-75.0); Hematocrit 26.7 % (42.0-52.0); Hemoglobin 8.6 g/dL (14.0-18.0); Mean Corpuscular HGB CONC 32.2 g/dL (32.0-36.0); Mean Corpuscular Volume 80.7 fl (78.0-98.0); Mean Platelet Volume 8.9 fL (7.4-10.4); Platelet Count 213 10x3/uL (130-400); RBC Distribution Width 15.4 % (11.5-14.5); Red Blood Cell (RBC) Count 3.31 mill/uL (4.70-6.10); White Blood Cell (WBC) Count 5.4 10x3/uL (4.8-10.8)
[2023-07-22 04:54] LABS: Iron 12 ug/dL (65-175); Iron Binding Capacity, Total 85 mcg/dL (261-462)
[2023-07-22 05:07] LABS: ALT (SGPT) 15 U/L (8-55); AST (SGOT) 14 U/L (5-34); Albumin 3.3 g/dL (3.4-4.8); Alkaline Phosphatase 97 U/L (40-110); Anion Gap 19 mmol/L (10-20); BUN (Urea Nitrogen) 31 mg/dL (8.4-25.7); Bilirubin, Total 0.4 mg/dL (0.2-1.2); Calc. Creatinine Clearance 19 mL/min (70-130); Calcium 7.1 mg/dL (7.8-10.44); Carbon Dioxide 16 mmol/L (23-31); Chloride 110 mmol/L (98-107); Estimated GFR 17; Glucose 92 mg/dL (83-110); Iron 10 ug/dL (65-175); Potassium 4.7 mmol/L (3.5-5.1); Protein, Total 5.3 g/dL (5.8-8.1); Sodium 140 mmol/L (136-145)
[2023-07-22] MEDS: Ipratropium/Albuterol 3 ML NEB NEB SCH ×4 (06:55→22:01)
[2023-07-22] MEDS: Mometasone 100 MCG HFA INHALER (RT USE) INH SCH ×2 (07:02→18:31)
[2023-07-22] MEDS ORDERED: Iron, Sodium Ferric Gluconate 250 MG in Sodium Chloride 0.9% 250 ML 250 ML IVPB SCH (08:00)
[2023-07-22] MEDS ORDERED: Megestrol Acetate 40 MG TAB PO SCH (09:00)
[2023-07-22] MEDS ORDERED: Megestrol Acetate 400 MG/10 ML UDCUP PO SCH (09:00)
[2023-07-22] MEDS: Tacrolimus 1 MG CAP PO SCH ×2 (09:29→21:25)
[2023-07-22] MEDS: Multivitamin W/ Minerals 1 TAB PO SCH (09:29)
[2023-07-22] MEDS: Sodium Bicarbonate Tab 325 MG TAB PO SCH ×2 (09:29→21:25)
[2023-07-22] MEDS: Calcitriol 0.25 MCG CAP PO SCH (09:29)
[2023-07-22] MEDS: Calcium Carbonate 500 MG TAB PO SCH ×2 (09:30→21:24)
[2023-07-22] MEDS: Atorvastatin Calcium 40 MG TAB PO SCH (09:30)
[2023-07-22] MEDS: Magnesium Oxide 400 MG TAB PO SCH ×2 (09:30→21:24)
[2023-07-22] MEDS ORDERED: Megestrol Acetate 800 MG/20 ML UDCUP PO SCH (09:30)
[2023-07-22] MEDS: Cholecalciferol 1,000 UNITS (25 MCG) TAB PO SCH (09:31)
[2023-07-22] MEDS: Docusate 100 MG CAP PO SCH ×2 (09:31→21:27)
[2023-07-22] MEDS: Potassium Chloride 20 MEQ TAB PO SCH (09:32)
[2023-07-22] MEDS: Fluticasone Propionate Nasal Spray 16 gm Bottle NASAL SCH (09:36)
[2023-07-22] MEDS: Furosemide 40 MG TAB PO SCH (09:36)
[2023-07-22] MEDS: Tamsulosin HCl 0.4 MG CAP PO SCH (21:24)
[2023-07-23] MEDS: Simethicone Chewable 80 MG TAB PO SCH ×4 (02:13→21:56)
[2023-07-23] MEDS: Ipratropium/Albuterol 3 ML NEB NEB SCH ×3 (07:43→18:55)
[2023-07-23] MEDS: Mometasone 100 MCG HFA INHALER (RT USE) INH SCH ×2 (07:44→19:00)
[2023-07-23] MEDS: Fluticasone Propionate Nasal Spray 16 gm Bottle NASAL SCH (08:39)
[2023-07-23] MEDS: Megestrol Acetate 800 MG/20 ML UDCUP PO SCH (08:39)
[2023-07-23] MEDS: Multivitamin W/ Minerals 1 TAB PO SCH (08:40)
[2023-07-23] MEDS: Calcitriol 0.25 MCG CAP PO SCH (08:40)
[2023-07-23] MEDS: Tacrolimus 1 MG CAP PO SCH ×2 (08:40→21:56)
[2023-07-23] MEDS: Sodium Bicarbonate Tab 325 MG TAB PO SCH ×2 (08:40→21:54)
[2023-07-23] MEDS: Furosemide 40 MG TAB PO SCH (08:40)
[2023-07-23] MEDS: Potassium Chloride 20 MEQ TAB PO SCH (08:40)
[2023-07-23] MEDS: Aspirin 81 mg Enteric Coated Tablet PO SCH (08:40)
[2023-07-23] MEDS: Magnesium Oxide 400 MG TAB PO SCH ×2 (08:41→21:54)
[2023-07-23] MEDS: Docusate 100 MG CAP PO SCH ×2 (08:41→21:54)
[2023-07-23] MEDS: Calcium Carbonate 500 MG TAB PO SCH ×2 (08:41→21:56)
[2023-07-23] MEDS: Cholecalciferol 1,000 UNITS (25 MCG) TAB PO SCH (08:41)
[2023-07-23] MEDS: Iron Polysaccharides Complex 150 MG CAP PO SCH (08:41)
[2023-07-23] MEDS: Atorvastatin Calcium 40 MG TAB PO SCH (08:41)
[2023-07-23] MEDS: Heparin 5,000 UNITS/ML VIAL SC SCH ×3 (08:42→21:57)
[2023-07-23 12:42] LABS: #Eosinphils 0.1 thou/uL (0.0-0.7); #Monocytes 0.5 thou/uL (0.11-0.59); #Neutrophils 4.1 thou/uL (1.40-6.50); %Basophils 0.4 % (0.0-1.0); %Eosinophils 1.6 % (0.0-10.0); %Lymphocytes 6.2 % (21.0-51.0); %Monocytes 9.4 % (0.0-10.0); %Neutrophils 81.4 % (42.0-75.0); Hematocrit 27.1 % (42.0-52.0); Hemoglobin 8.7 g/dL (14.0-18.0); Mean Corpuscular HGB CONC 32.1 g/dL (32.0-36.0); Mean Corpuscular Hemoglobin 25.7 pg (27.0-31.0); Mean Corpuscular Volume 79.9 fl (78.0-98.0); Mean Platelet Volume 9.4 fL (7.4-10.4); Platelet Count 231 10x3/uL (130-400); RBC Distribution Width 15.5 % (11.5-14.5); Red Blood Cell (RBC) Count 3.39 mill/uL (4.70-6.10)
[2023-07-23 13:06] LABS: ALT (SGPT) 11 U/L (8-55); AST (SGOT) 11 U/L (5-34); Albumin 3.3 g/dL (3.4-4.8); Alkaline Phosphatase 107 U/L (40-110); Anion Gap 14 mmol/L (10-20); BUN (Urea Nitrogen) 33 mg/dL (8.4-25.7); Bilirubin, Total 0.2 mg/dL (0.2-1.2); Calc. Creatinine Clearance 17 mL/min (70-130); Calcium 7.3 mg/dL (7.8-10.44); Carbon Dioxide 19 mmol/L (23-31); Chloride 112 mmol/L (98-107); Estimated GFR 15; Globulin 1.8 g/dL (2.4-3.5); Glucose 132 mg/dL (83-110); Potassium 4.5 mmol/L (3.5-5.1); Protein, Total 5.1 g/dL (5.8-8.1); Sodium 140 mmol/L (136-145)
[2023-07-23] MEDS ORDERED: Sulfameth/Trimethoprim DS 800-160mg TAB PO SCH (13:44)
[2023-07-23] MEDS: Cephalexin 250 MG CAP PO SCH ×2 (14:10→21:56)
[2023-07-23] MEDS: Tamsulosin HCl 0.4 MG CAP PO SCH (21:55)
[2023-07-24] MEDS: Ipratropium/Albuterol 3 ML NEB NEB SCH ×4 (00:57→19:17)
[2023-07-24] MEDS: Simethicone Chewable 80 MG TAB PO SCH ×2 (01:46→08:20)
[2023-07-24 04:37] LABS: #Eosinphils 0.1 thou/uL (0.0-0.7); #Monocytes 0.5 thou/uL (0.11-0.59); #Neutrophils 3.3 thou/uL (1.40-6.50); %Basophils 0.2 % (0.0-1.0); %Eosinophils 1.9 % (0.0-10.0); %Monocytes 11.2 % (0.0-10.0); %Neutrophils 77.2 % (42.0-75.0); Hematocrit 24.8 % (42.0-52.0); Mean Corpuscular HGB CONC 32.3 g/dL (32.0-36.0); Mean Corpuscular Hemoglobin 25.9 pg (27.0-31.0); Mean Corpuscular Volume 80.3 fl (78.0-98.0); Mean Platelet Volume 8.7 fL (7.4-10.4); Platelet Count 209 10x3/uL (130-400); RBC Distribution Width 15.6 % (11.5-14.5); Red Blood Cell (RBC) Count 3.09 mill/uL (4.70-6.10); White Blood Cell (WBC) Count 4.2 10x3/uL (4.8-10.8)
[2023-07-24 05:16] LABS: ALT (SGPT) 13 U/L (8-55); AST (SGOT) 14 U/L (5-34); Albumin 3.1 g/dL (3.4-4.8); Alkaline Phosphatase 107 U/L (40-110); Anion Gap 17 mmol/L (10-20); BUN (Urea Nitrogen) 38 mg/dL (8.4-25.7); Bilirubin, Total 0.2 mg/dL (0.2-1.2); Calc. Creatinine Clearance 17 mL/min (70-130); Calcium 7.3 mg/dL (7.8-10.44); Carbon Dioxide 17 mmol/L (23-31); Chloride 112 mmol/L (98-107); Estimated GFR 15; Globulin 2.1 g/dL (2.4-3.5); Glucose 100 mg/dL (83-110); Potassium 4.7 mmol/L (3.5-5.1); Protein, Total 5.2 g/dL (5.8-8.1); Sodium 141 mmol/L (136-145)
[2023-07-24] MEDS: Cephalexin 250 MG CAP PO SCH ×3 (05:35→22:11)
[2023-07-24] MEDS: Mometasone 100 MCG HFA INHALER (RT USE) INH SCH ×2 (07:09→19:18)
[2023-07-24] MEDS: Aspirin 81 mg Enteric Coated Tablet PO SCH (08:18)
[2023-07-24] MEDS: Megestrol Acetate 800 MG/20 ML UDCUP PO SCH (08:18)
[2023-07-24] MEDS: Potassium Chloride 20 MEQ TAB PO SCH (08:19)
[2023-07-24] MEDS: Sodium Bicarbonate Tab 325 MG TAB PO SCH ×3 (08:19→22:12)
[2023-07-24] MEDS: Calcitriol 0.25 MCG CAP PO SCH (08:19)
[2023-07-24] MEDS: Tacrolimus 1 MG CAP PO SCH ×2 (08:19→22:12)
[2023-07-24] MEDS: Furosemide 40 MG TAB PO SCH (08:19)
[2023-07-24] MEDS: Cholecalciferol 1,000 UNITS (25 MCG) TAB PO SCH (08:19)
[2023-07-24] MEDS: Magnesium Oxide 400 MG TAB PO SCH (08:20)
[2023-07-24] MEDS: Docusate 100 MG CAP PO SCH ×2 (08:20→22:11)
[2023-07-24] MEDS: Multivitamin W/ Minerals 1 TAB PO SCH (08:20)
[2023-07-24] MEDS: Atorvastatin Calcium 40 MG TAB PO SCH (08:20)
[2023-07-24] MEDS: Calcium Carbonate 500 MG TAB PO SCH ×2 (08:20→22:11)
[2023-07-24] MEDS: Fluticasone Propionate Nasal Spray 16 gm Bottle NASAL SCH (08:20)
[2023-07-24] MEDS: Heparin 5,000 UNITS/ML VIAL SC SCH ×3 (08:20→22:12)
[2023-07-24] MEDS: Iron Polysaccharides Complex 150 MG CAP PO SCH (08:21)
[2023-07-24] MEDS: Tamsulosin HCl 0.4 MG CAP PO SCH (22:11)
[2023-07-25] MEDS: Ipratropium/Albuterol 3 ML NEB NEB SCH ×4 (00:46→19:33)
[2023-07-25 04:07] LABS: #Eosinphils 0.1 thou/uL (0.0-0.7); #Monocytes 0.6 thou/uL (0.11-0.59); #Neutrophils 3.4 thou/uL (1.40-6.50); %Basophils 0.2 % (0.0-1.0); %Eosinophils 1.6 % (0.0-10.0); %Lymphocytes 8.8 % (21.0-51.0); %Monocytes 12.4 % (0.0-10.0); %Neutrophils 76.5 % (42.0-75.0); Hematocrit 26.2 % (42.0-52.0); Hemoglobin 8.2 g/dL (14.0-18.0); Mean Corpuscular HGB CONC 31.3 g/dL (32.0-36.0); Mean Corpuscular Hemoglobin 25.1 pg (27.0-31.0); Mean Corpuscular Volume 80.1 fl (78.0-98.0); Platelet Count 206 10x3/uL (130-400); RBC Distribution Width 15.4 % (11.5-14.5); Red Blood Cell (RBC) Count 3.27 mill/uL (4.70-6.10); White Blood Cell (WBC) Count 4.4 10x3/uL (4.8-10.8)
[2023-07-25 04:41] LABS: ALT (SGPT) 11 U/L (8-55); AST (SGOT) 10 U/L (5-34); Albumin 3.3 g/dL (3.4-4.8); Alkaline Phosphatase 102 U/L (40-110); Anion Gap 15 mmol/L (10-20); BUN (Urea Nitrogen) 38 mg/dL (8.4-25.7); Bilirubin, Total 0.2 mg/dL (0.2-1.2); Calc. Creatinine Clearance 17 mL/min (70-130); Calcium 7.7 mg/dL (7.8-10.44); Carbon Dioxide 19 mmol/L (23-31); Chloride 112 mmol/L (98-107); Estimated GFR 15; Glucose 101 mg/dL (83-110); Potassium 4.8 mmol/L (3.5-5.1); Protein, Total 5.3 g/dL (5.8-8.1); Sodium 141 mmol/L (136-145)
[2023-07-25] MEDS: Cephalexin 250 MG CAP PO SCH ×3 (06:14→20:21)
[2023-07-25] MEDS: Mometasone 100 MCG HFA INHALER (RT USE) INH SCH ×2 (07:00→19:36)
[2023-07-25] MEDS: Fluticasone Propionate Nasal Spray 16 gm Bottle NASAL SCH (09:30)
[2023-07-25] MEDS: Megestrol Acetate 800 MG/20 ML UDCUP PO SCH (09:31)
[2023-07-25] MEDS: Sodium Bicarbonate Tab 325 MG TAB PO SCH ×3 (09:31→20:20)
[2023-07-25] MEDS: Calcitriol 0.25 MCG CAP PO SCH (09:31)
[2023-07-25] MEDS: Aspirin 81 mg Enteric Coated Tablet PO SCH (09:31)
[2023-07-25] MEDS: Multivitamin W/ Minerals 1 TAB PO SCH (09:31)
[2023-07-25] MEDS: Cholecalciferol 1,000 UNITS (25 MCG) TAB PO SCH (09:32)
[2023-07-25] MEDS: Tacrolimus 1 MG CAP PO SCH ×2 (09:32→20:20)
[2023-07-25] MEDS: Atorvastatin Calcium 40 MG TAB PO SCH (09:32)
[2023-07-25] MEDS: Iron Polysaccharides Complex 150 MG CAP PO SCH (09:32)
[2023-07-25] MEDS: Calcium Carbonate 500 MG TAB PO SCH ×2 (09:32→20:20)
[2023-07-25] MEDS: Furosemide 40 MG TAB PO SCH (09:33)
[2023-07-25] MEDS: Docusate 100 MG CAP PO SCH (09:33)
[2023-07-25] MEDS: Heparin 5,000 UNITS/ML VIAL SC SCH ×3 (09:34→20:21)
[2023-07-25] MEDS: Epoetin (ESRD) 10,000 UNITS/ML VIAL SC SCH (13:28)
[2023-07-25] MEDS: Tamsulosin HCl 0.4 MG CAP PO SCH (20:21)
[2023-07-26] MEDS ORDERED: Acetaminophen 500 MG TAB PO PRN (00:30)
[2023-07-26] MEDS: Ipratropium/Albuterol 3 ML NEB NEB SCH ×3 (01:02→14:39)
[2023-07-26] MEDS: Cephalexin 250 MG CAP PO SCH ×2 (04:00→15:58)
[2023-07-26 04:57] LABS: #Eosinphils 0.1 thou/uL (0.0-0.7); #Monocytes 0.5 thou/uL (0.11-0.59); %Basophils 0.3 % (0.0-1.0); %Eosinophils 1.3 % (0.0-10.0); %Lymphocytes 9.9 % (21.0-51.0); %Monocytes 11.5 % (0.0-10.0); %Neutrophils 76.5 % (42.0-75.0); Hematocrit 25.6 % (42.0-52.0); Hemoglobin 8.3 g/dL (14.0-18.0); Mean Corpuscular HGB CONC 32.4 g/dL (32.0-36.0); Mean Corpuscular Volume 80.3 fl (78.0-98.0); Platelet Count 195 10x3/uL (130-400); RBC Distribution Width 15.3 % (11.5-14.5); Red Blood Cell (RBC) Count 3.19 mill/uL (4.70-6.10); White Blood Cell (WBC) Count 3.9 10x3/uL (4.8-10.8)
[2023-07-26 05:26] LABS: ALT (SGPT) 12 U/L (8-55); AST (SGOT) 9 U/L (5-34); Albumin 3.2 g/dL (3.4-4.8); Alkaline Phosphatase 95 U/L (40-110); Anion Gap 17 mmol/L (10-20); BUN (Urea Nitrogen) 40 mg/dL (8.4-25.7); Bilirubin, Total 0.3 mg/dL (0.2-1.2); Calc. Creatinine Clearance 17 mL/min (70-130); Calcium 7.7 mg/dL (7.8-10.44); Carbon Dioxide 21 mmol/L (23-31); Chloride 110 mmol/L (98-107); Estimated GFR 15; Globulin 2.1 g/dL (2.4-3.5); Glucose 102 mg/dL (83-110); Protein, Total 5.3 g/dL (5.8-8.1); Sodium 143 mmol/L (136-145)
[2023-07-26] MEDS: Mometasone 100 MCG HFA INHALER (RT USE) INH SCH (07:24)
[2023-07-26] MEDS ORDERED: Potassium Chloride 20 MEQ TAB PO SCH ×2 (08:00)
[2023-07-26] MEDS ORDERED: Saccharomyces boulardii 250 MG CAP PO SCH (09:00)
[2023-07-26] MEDS: Heparin 5,000 UNITS/ML VIAL SC SCH ×2 (09:20→15:58)
[2023-07-26] MEDS: Aspirin 81 mg Enteric Coated Tablet PO SCH (09:20)
[2023-07-26] MEDS: Megestrol Acetate 800 MG/20 ML UDCUP PO SCH (09:20)
[2023-07-26] MEDS: Fluticasone Propionate Nasal Spray 16 gm Bottle NASAL SCH (09:20)
[2023-07-26] MEDS: Sodium Bicarbonate Tab 325 MG TAB PO SCH ×2 (09:20→15:57)
[2023-07-26] MEDS: Calcitriol 0.25 MCG CAP PO SCH (09:21)
[2023-07-26] MEDS: Cholecalciferol 1,000 UNITS (25 MCG) TAB PO SCH (09:21)
[2023-07-26] MEDS: Tacrolimus 1 MG CAP PO SCH (09:21)
[2023-07-26] MEDS: Multivitamin W/ Minerals 1 TAB PO SCH (09:21)
[2023-07-26] MEDS: Atorvastatin Calcium 40 MG TAB PO SCH (09:21)
[2023-07-26] MEDS: Calcium Carbonate 500 MG TAB PO SCH (09:22)
[2023-07-26] MEDS: Furosemide 40 MG TAB PO SCH (09:22)
[2023-07-26 10:23] LABS: SARS-CoV-2 NAA Rapid Test Not Detected (NotDetected)
[2023-07-26 15:11] VITALS: BP 144/66; TEMP 99.1
[2023-07-27] MEDS ORDERED: Iron Polysaccharides Complex 150 MG CAP PO SCH (08:00)
== END 2023-07-26 17:45 | disposition short-term general hospital (02) | DRG 193 ==
LOC: ERS 20:58 → T4-A 07-11 00:22 → 2NO 07-18 21:45
PROVIDERS: ADMIT Student in an Organized Health Care Education/Training Program; ATTEND Student in an Organized Health Care Education/Training Program
PROC: 3E03329 Introduction of Other Anti-infective into Peripheral Vein, Percutaneous Approach (ICD-10-PCS; 2023-07-11)
PROC: 06HY33Z Insertion of Infusion Device into Lower Vein, Percutaneous Approach (ICD-10-PCS; principal; 2023-07-18)
PROC: 30243J1 Transfusion of Nonautologous Serum Albumin into Central Vein, Percutaneous Approach (ICD-10-PCS; 2023-07-18)
DX: J18.9 Pneumonia, unspecified organism (principal); G93.41 Metabolic encephalopathy; I21.A1 Myocardial infarction type 2; Z94.4 Liver transplant status; I31.39 Other pericardial effusion (noninflammatory); N17.9 Acute kidney failure, unspecified; E87.20 Acidosis, unspecified; N39.0 Urinary tract infection, site not specified; N18.5 Chronic kidney disease, stage 5; I13.2 Hypertensive heart and chronic kidney disease with heart failure and with stage 5 chronic kidney disease, or end stage renal disease; I50.30 Unspecified diastolic (congestive) heart failure; N25.81 Secondary hyperparathyroidism of renal origin; E46 Unspecified protein-calorie malnutrition; Z98.890 Other specified postprocedural states; Z79.899 Other long term (current) drug therapy; N40.0 Benign prostatic hyperplasia without lower urinary tract symptoms; K21.9 Gastro-esophageal reflux disease without esophagitis; Z83.3 Family history of diabetes mellitus; Z82.49 Family history of ischemic heart disease and other diseases of the circulatory system; Z87.891 Personal history of nicotine dependence; R33.9 Retention of urine, unspecified; E66.9 Obesity, unspecified; Z68.25 Body mass index [BMI] 25.0-25.9, adult; E11.22 Type 2 diabetes mellitus with diabetic chronic kidney disease; D63.1 Anemia in chronic kidney disease; E55.9 Vitamin D deficiency, unspecified; E88.09 Other disorders of plasma-protein metabolism, not elsewhere classified; Z20.822 Contact with and (suspected) exposure to COVID-19
CPT/HCPCS: 36415; 36416; 51702; 71045; 71046; 74018; 74176; 74230; 78451; 80053; 80197; 80202; 81001; 82105; 82140; 82306; 82728; 83540; 83550; 83605; 83690; 83735; 83880; 83970; 84145; 84484; 85025; 85610; 85730; 86140; 87081; 87324; 87449; 87899; 93005; 93010; 93306; 93970; 94640; 96365; 96366; 96367; 96375; 97139; A9540; J0613; J0692; J0696; J1644; J1650; J1940; J2916; J3370; J3475; J3490; J7050; J7070; J7120; J7507; J7620; J7626; P9047; Q4081; U0002

== ENCOUNTER 2024-04-14 11:29 | Emergency (ER) | payer MEDICARE ==
[2024-04-14 11:59] LABS: #Basophils Less than 0.03 10x3/uL (0.0-0.2); %Basophils 0.5 % (0.0-1.0); %Eosinophils 1.3 % (0.0-10.0); %Lymphocytes 17.4 % (21.0-51.0); %Monocytes 8.1 % (0.0-10.0); %Neutrophils 72.2 % (42.0-75.0); Hematocrit 36.5 % (42.0-52.0); Hemoglobin 11.3 g/dL (14.0-18.0); Mean Corpuscular Hemoglobin 26.7 pg (27.0-31.0); Mean Corpuscular Volume 86.1 fL (78.0-98.0); Mean Platelet Volume 9.4 fL (7.4-10.4); Platelet Count 175 10x3/uL (130-400); Red Blood Cell (RBC) Count 4.24 mill/uL (4.70-6.10)
[2024-04-14 12:18] LABS: ALT (SGPT) 21 U/L (8-55); AST (SGOT) 16 U/L (5-34); Albumin 3.5 g/dL (3.4-4.8); Alkaline Phosphatase 89 U/L (40-110); Anion Gap 13 mmol/L (10-20); BUN (Urea Nitrogen) 30 mg/dL (8.4-25.7); Bilirubin, Total 0.3 mg/dL (0.2-1.2); Calc. Creatinine Clearance 0 mL/min (70-130); Calcium 9.6 mg/dL (7.8-10.44); Carbon Dioxide 17 mmol/L (23-31); Chloride 112 mmol/L (98-107); Estimated GFR 36; Globulin 3.1 g/dL (2.4-3.5); Glucose 123 mg/dL (83-110); Magnesium 1.8 mg/dL (1.6-2.6); Potassium 5.1 mmol/L (3.5-5.1); Protein, Total 6.6 g/dL (5.8-8.1); Sodium 137 mmol/L (136-145)
[2024-04-14 12:19] LABS: Troponin I Less than 0.010 ng/mL (< 0.028)
== END 2024-04-14 13:17 | disposition home or self-care (01) ==
LOC: ERS 11:29
DX: E87.5 Hyperkalemia (principal); F17.220 Nicotine dependence, chewing tobacco, uncomplicated; I10 Essential (primary) hypertension; Z55.6 Problems related to health literacy
CPT/HCPCS: 36415; 71045; 80053; 83735; 84484; 85025; 93005

== ENCOUNTER 2025-04-12 11:51 | Inpatient (IN) | payer MEDICARE ==
[2025-04-12 13:05] LABS: #Basophils Less than 0.03 10x3/uL (0.0-0.2); #Eosinophils 0.05 10x3/uL (0.0-0.7); #Monocytes 0.51 10x3/uL (0.11-0.59); #Neutrophils 4.47 10x3/uL (1.40-6.50); %Basophils 0.4 % (0.0-1.0); %Eosinophils 0.9 % (0.0-10.0); %Lymphocytes 10.6 % (21.0-51.0); %Monocytes 9.0 % (0.0-10.0); %Neutrophils 78.7 % (42.0-75.0); Hematocrit 29.4 % (42.0-52.0); Hemoglobin 9.9 g/dL (14.0-18.0); Mean Corpuscular Hemoglobin 26.1 pg (27.0-31.0); Mean Corpuscular Volume 77.4 fL (78.0-98.0); Platelet Count 168 10x3/uL (130-400); Red Blood Cell (RBC) Count 3.80 mill/uL (4.70-6.10); White Blood Cell (WBC) Count 5.67 10x3/uL (4.8-10.8)
[2025-04-12 13:22] LABS: ALT (SGPT) 17 U/L (Less than 45); AST (SGOT) 14 U/L (11-34); Albumin 3.4 g/dL (3.1-4.5); Alkaline Phosphatase 88 U/L (40-110); Anion Gap 16 mmol/L (10-20); BUN (Urea Nitrogen) 38 mg/dL (8.4-25.7); Bilirubin, Total 0.3 mg/dL (0.3-1.2); Calc. Creatinine Clearance 0 mL/min (70-130); Calcium 8.4 mg/dL (7.8-10.44); Carbon Dioxide 23 mmol/L (23-31); Chloride 96 mmol/L (98-107); Globulin 2.8 g/dL (2.4-3.5); Glucose 132 mg/dL (83-110); Magnesium 1.9 mg/dL (1.6-2.6); Potassium 4.3 mmol/L (3.5-5.1); Sodium 131 mmol/L (136-145)
[2025-04-12 13:30] LABS: Troponin I Less than 0.010 ng/mL (< 0.028)
[2025-04-12] MEDS ORDERED: Ketamine In 0.9 % NaCl 50 MG/5 ML SYRINGE ONE (18:01)
[2025-04-12] MEDS ORDERED: Rocuronium Bromide 10 MG/ML (10ML VIAL) ONE (19:16)
[2025-04-12] MEDS ORDERED: Calcium Chloride 1 GM/10 ML Abboject SYRINGE ONE (19:16)
[2025-04-12] MEDS ORDERED: CEFAZOLIN 1 GM VIAL ONE (19:19)
[2025-04-12] MEDS ORDERED: PHENYLEPHRINE-NS 100 MCG/ML 10 ML SYRINGE ONE (19:34)
[2025-04-12] MEDS ORDERED: SUGAMMADEX SODIUM 200 MG/2 ML VIAL ONE (19:45)
[2025-04-12] MEDS ORDERED: Glucagon 1 MG/ML KIT IM PRN (20:59)
[2025-04-12] MEDS ORDERED: Dextrose 50% Abboject 50 ML SYRINGE SLOW IVP PRN (20:59)
[2025-04-12] MEDS ORDERED: Senokot S 8.6-50 MG TAB PO PRN (20:59)
[2025-04-12 22:46] VITALS: BMI 26.4
[2025-04-12] MEDS ORDERED: Ondansetron PF 4 MG/2 ML Vial IVP PRN (22:53)
[2025-04-12] MEDS ORDERED: hydrALAZINE 20 MG/ML VIAL SLOW IVP PRN (22:53)
[2025-04-12] MEDS: Acetaminophen 325 MG TAB PO SCH (23:49)
[2025-04-12] MEDS ORDERED: Milk Of Magnesia 30 ML UDCUP PO PRN (23:49)
[2025-04-13 00:50] LABS: Urea Nitrogen, Random Urine 296.0 mg/dl
[2025-04-13 01:49] LABS: Osmolality, Urine 333 mOsm/kg (50-1200)
[2025-04-13 04:18] LABS: #Basophils Less than 0.03 10x3/uL (0.0-0.2); #Eosinophils Less than 0.03 10x3/uL (0.0-0.7); #Monocytes 0.47 10x3/uL (0.11-0.59); #Neutrophils 5.26 10x3/uL (1.40-6.50); %Basophils 0.3 % (0.0-1.0); %Eosinophils 0.3 % (0.0-10.0); %Lymphocytes 6.1 % (21.0-51.0); %Monocytes 7.6 % (0.0-10.0); %Neutrophils 85.2 % (42.0-75.0); Hematocrit 28.9 % (42.0-52.0); Hemoglobin 9.5 g/dL (14.0-18.0); Mean Corpuscular Hemoglobin 25.5 pg (27.0-31.0); Mean Corpuscular Volume 77.5 fL (78.0-98.0); Platelet Count 158 10x3/uL (130-400); Red Blood Cell (RBC) Count 3.73 mill/uL (4.70-6.10); White Blood Cell (WBC) Count 6.18 10x3/uL (4.8-10.8)
[2025-04-13 04:30] LABS: Anion Gap 12 mmol/L (10-20); BUN (Urea Nitrogen) 34 mg/dL (8.4-25.7); Calc. Creatinine Clearance 20 mL/min (70-130); Calcium 7.9 mg/dL (7.8-10.44); Carbon Dioxide 19 mmol/L (23-31); Chloride 104 mmol/L (98-107); Glucose 121 mg/dL (83-110); Iron 18 ug/dL (65-175); Iron Binding Capacity, Total 148 mcg/dL (261-462); Iron Binding Capacity, Total 149 mcg/dL (261-462); Magnesium 1.8 mg/dL (1.6-2.6); Potassium 4.3 mmol/L (3.5-5.1); Sodium 131 mmol/L (136-145)
[2025-04-13] MEDS ORDERED: EVEROLIMUS 0.5 MG PO SCH (09:00)
[2025-04-13] MEDS ORDERED: Pantoprazole 40 MG VIAL IVP SCH (09:00)
[2025-04-13] MEDS: Heparin 5,000 UNITS/ML VIAL SC SCH (10:00)
[2025-04-13] MEDS: Magnesium 2 GM/50 ML(in water) 2 GM in Premix 1 BAG IVPB SCH (10:09)
[2025-04-13] MEDS: Calcium Carbonate 500 MG ChewTAB PO SCH (10:09)
[2025-04-13] MEDS: Ferrous Sulfate 325 MG TAB PO SCH (10:10)
[2025-04-13] MEDS: Cholecalciferol 1,000 UNITS (25 MCG) TAB PO SCH (10:10)
[2025-04-13] MEDS: Pantoprazole 40 MG DR.TAB PO SCH (10:10)
[2025-04-13] MEDS: Sodium Bicarbonate Tab 325 MG TAB PO SCH (10:10)
[2025-04-13] MEDS: Aspirin 81 mg Enteric Coated Tablet PO SCH (10:10)
[2025-04-14 07:27] LABS: #Basophils Less than 0.03 10x3/uL (0.0-0.2); #Eosinophils 0.04 10x3/uL (0.0-0.7); #Monocytes 0.46 10x3/uL (0.11-0.59); #Neutrophils 4.25 10x3/uL (1.40-6.50); %Basophils 0.2 % (0.0-1.0); %Eosinophils 0.8 % (0.0-10.0); %Lymphocytes 8.4 % (21.0-51.0); %Monocytes 8.8 % (0.0-10.0); %Neutrophils 81.2 % (42.0-75.0); Hematocrit 30.8 % (42.0-52.0); Hemoglobin 10.2 g/dL (14.0-18.0); Mean Corpuscular Hemoglobin 26.0 pg (27.0-31.0); Mean Corpuscular Volume 78.4 fL (78.0-98.0); Platelet Count 150 10x3/uL (130-400); Red Blood Cell (RBC) Count 3.93 mill/uL (4.70-6.10); White Blood Cell (WBC) Count 5.23 10x3/uL (4.8-10.8)
[2025-04-14 07:42] LABS: ALT (SGPT) Less than 7 U/L (Less than 45); AST (SGOT) 17 U/L (11-34); Albumin 2.9 g/dL (3.1-4.5); Alkaline Phosphatase 96 U/L (40-110); Anion Gap 12 mmol/L (10-20); BUN (Urea Nitrogen) 32 mg/dL (8.4-25.7); Bilirubin, Total 0.4 mg/dL (0.3-1.2); Calc. Creatinine Clearance 22 mL/min (70-130); Calcium 8.2 mg/dL (7.8-10.44); Carbon Dioxide 20 mmol/L (23-31); Chloride 105 mmol/L (98-107); Globulin 2.8 g/dL (2.4-3.5); Glucose 120 mg/dL (83-110); Magnesium 2.2 mg/dL (1.6-2.6); Potassium 4.3 mmol/L (3.5-5.1); Sodium 133 mmol/L (136-145)
[2025-04-14] MEDS: EPOETIN ALFA-EPBX (ESRD) 10,000 UNITS/ML VIAL SC SCH (13:34)
[2025-04-14 15:15] LABS: Syphilis Antibody Index 14.88 S/CO (<1.00 Non-Reactive)
[2025-04-14 15:37] VITALS: BMI 26.5
[2025-04-14 20:24] LABS: Syphilis Titer 1:4 Titer (Nonreactive)
[2025-04-15] MEDS ORDERED: EVEROLIMUS 0.5 MG PO SCH (02:00)
[2025-04-15 06:38] LABS: #Basophils Less than 0.03 10x3/uL (0.0-0.2); #Eosinophils 0.03 10x3/uL (0.0-0.7); #Monocytes 0.52 10x3/uL (0.11-0.59); #Neutrophils 3.61 10x3/uL (1.40-6.50); %Basophils 0.2 % (0.0-1.0); %Eosinophils 0.6 % (0.0-10.0); %Lymphocytes 11.2 % (21.0-51.0); %Monocytes 11.0 % (0.0-10.0); %Neutrophils 76.6 % (42.0-75.0); Hematocrit 26.4 % (42.0-52.0); Hemoglobin 8.9 g/dL (14.0-18.0); Mean Corpuscular Hemoglobin 26.1 pg (27.0-31.0); Mean Corpuscular Volume 77.4 fL (78.0-98.0); Platelet Count 148 10x3/uL (130-400); Red Blood Cell (RBC) Count 3.41 mill/uL (4.70-6.10); White Blood Cell (WBC) Count 4.72 10x3/uL (4.8-10.8)
[2025-04-15 06:53] LABS: Anion Gap 13 mmol/L (10-20); BUN (Urea Nitrogen) 29 mg/dL (8.4-25.7); Calc. Creatinine Clearance 25 mL/min (70-130); Calcium 8.2 mg/dL (7.8-10.44); Carbon Dioxide 19 mmol/L (23-31); Chloride 108 mmol/L (98-107); Glucose 110 mg/dL (83-110); Potassium 4.1 mmol/L (3.5-5.1); Sodium 136 mmol/L (136-145)
[2025-04-15] MEDS: Acetaminophen 500 MG TAB PO SCH (08:38)
[2025-04-15] MEDS: EVEROLIMUS 0.5 MG PO SCH ×2 (08:41→17:05)
[2025-04-15 09:52] LABS: Magnesium 2.0 mg/dL (1.6-2.6)
[2025-04-16] MEDS: Benzocaine/Menthol 1 LOZ LOZ PO PRN (00:36)
[2025-04-16 03:45] LABS: #Basophils Less than 0.03 10x3/uL (0.0-0.2); #Eosinophils 0.04 10x3/uL (0.0-0.7); #Monocytes 0.42 10x3/uL (0.11-0.59); #Neutrophils 2.97 10x3/uL (1.40-6.50); %Basophils 0.3 % (0.0-1.0); %Eosinophils 1.0 % (0.0-10.0); %Lymphocytes 13.3 % (21.0-51.0); %Monocytes 10.5 % (0.0-10.0); %Neutrophils 74.1 % (42.0-75.0); Hematocrit 26.2 % (42.0-52.0); Hemoglobin 8.5 g/dL (14.0-18.0); Mean Corpuscular Hemoglobin 25.5 pg (27.0-31.0); Mean Corpuscular Volume 78.7 fL (78.0-98.0); Platelet Count 159 10x3/uL (130-400); Red Blood Cell (RBC) Count 3.33 mill/uL (4.70-6.10); White Blood Cell (WBC) Count 4.00 10x3/uL (4.8-10.8)
[2025-04-16 04:10] LABS: Anion Gap 12 mmol/L (10-20); BUN (Urea Nitrogen) 32 mg/dL (8.4-25.7); Calc. Creatinine Clearance 25 mL/min (70-130); Calcium 8.1 mg/dL (7.8-10.44); Carbon Dioxide 19 mmol/L (23-31); Chloride 110 mmol/L (98-107); Glucose 114 mg/dL (83-110); Potassium 3.8 mmol/L (3.5-5.1); Sodium 137 mmol/L (136-145)
[2025-04-16] MEDS ORDERED: Vancomycin Dose by Levels Sliding Scale (Wt <71) FS SCH (09:30)
[2025-04-16] MEDS: Magnesium 2 GM/50 ML(in water) 2 GM in Premix 1 BAG IVPB SCH (10:33)
[2025-04-16] MEDS: Vancomycin 1.25 GM / NS 250 ML VIAL-2-BAG IVPB SCH (12:43)
[2025-04-17 00:37] LABS: CMV IgM AB Less than 30.0 AU/mL (0.0-29.9)
[2025-04-17 03:51] VITALS: BP 126/61; TEMP 99.3
[2025-04-17 16:38] LABS: CMV DNA-PCR Test Negative (Negative)
== END 2025-04-17 00:19 | disposition short-term general hospital (02) | DRG 270 ==
LOC: ERS 11:51 → SDC/OP 18:38 → CCU 18:39 → IMCU/EMU 04-13 19:06 → PCU 04-14 19:52
PROVIDERS: ADMIT Student in an Organized Health Care Education/Training Program; ATTEND Student in an Organized Health Care Education/Training Program
PROC: 4A133J1 Monitoring of Arterial Pulse, Peripheral, Percutaneous Approach (ICD-10-PCS; principal; 2025-04-12)
PROC: 03HY32Z Insertion of Monitoring Device into Upper Artery, Percutaneous Approach (ICD-10-PCS; principal; 2025-04-12)
PROC: 4A133B1 Monitoring of Arterial Pressure, Peripheral, Percutaneous Approach (ICD-10-PCS; principal; 2025-04-12)
PROC: 3E03329 Introduction of Other Anti-infective into Peripheral Vein, Percutaneous Approach (ICD-10-PCS; 2025-04-12)
PROC: 0W9D40Z Drainage of Pericardial Cavity with Drainage Device, Percutaneous Endoscopic Approach (ICD-10-PCS; 2025-04-12)
PROC: 3E033XZ Introduction of Vasopressor into Peripheral Vein, Percutaneous Approach (ICD-10-PCS; 2025-04-12)
DX: I31.39 Other pericardial effusion (noninflammatory) (principal); J18.9 Pneumonia, unspecified organism; D62 Acute posthemorrhagic anemia; E87.1 Hypo-osmolality and hyponatremia; N17.9 Acute kidney failure, unspecified; Z94.4 Liver transplant status; N18.4 Chronic kidney disease, stage 4 (severe); I50.32 Chronic diastolic (congestive) heart failure; I13.0 Hypertensive heart and chronic kidney disease with heart failure and stage 1 through stage 4 chronic kidney disease, or unspecified chronic kidney disease; I48.92 Unspecified atrial flutter; I31.4 Cardiac tamponade; K74.60 Unspecified cirrhosis of liver; N40.0 Benign prostatic hyperplasia without lower urinary tract symptoms; K21.9 Gastro-esophageal reflux disease without esophagitis; F17.220 Nicotine dependence, chewing tobacco, uncomplicated; E55.9 Vitamin D deficiency, unspecified; M19.90 Unspecified osteoarthritis, unspecified site; J44.9 Chronic obstructive pulmonary disease, unspecified; A53.0 Latent syphilis, unspecified as early or late; E11.22 Type 2 diabetes mellitus with diabetic chronic kidney disease; D50.9 Iron deficiency anemia, unspecified; Z85.05 Personal history of malignant neoplasm of liver; Z79.899 Other long term (current) drug therapy; Z88.8 Allergy status to other drugs, medicaments and biological substances; Z79.60 Long term (current) use of unspecified immunomodulators and immunosuppressants; Z98.890 Other specified postprocedural states; Z85.828 Personal history of other malignant neoplasm of skin; Z86.15 Personal history of latent tuberculosis infection; D63.1 Anemia in chronic kidney disease; E66.9 Obesity, unspecified; Z79.82 Long term (current) use of aspirin; M81.0 Age-related osteoporosis without current pathological fracture; Z94.89 Other transplanted organ and tissue status; I95.9 Hypotension, unspecified; K46.9 Unspecified abdominal hernia without obstruction or gangrene; I31.8 Other specified diseases of pericardium; I48.0 Paroxysmal atrial fibrillation
CPT/HCPCS: 36415; 36416; 71045; 71250; 80048; 80053; 80197; 82570; 82728; 83540; 83550; 83605; 83735; 83880; 83935; 84100; 84145; 84484; 84540; 85025; 86141; 86480; 86593; 86645; 86780; 87040; 87070; 87081; 87205; 87497; 88305; 88341; 88342; 93005; 93010; 93306; 94640; 96360; J0169; J0665; J0690; J0692; J1250; J1644; J1815; J2250; J2272; J3010; J3373; J3475; J3490; J7030; J7050; J7507; J7626; Q5105

== ENCOUNTER 2025-04-26 10:49 | Emergency (ER) | payer MEDICARE ==
[~2025-04-26 10:49] MED LIST changes: -ISOVUE-370 76%-LOCM 1 ML ONE; +Iopamidol-370 76% 500 ML MDV (1 ML CHARGE) ONE
[2025-04-26 12:31] LABS: #Basophils Less than 0.03 10x3/uL (0.0-0.2); #Eosinophils 0.05 10x3/uL (0.0-0.7); #Monocytes 0.53 10x3/uL (0.11-0.59); #Neutrophils 4.59 10x3/uL (1.40-6.50); %Basophils 0.3 % (0.0-1.0); %Eosinophils 0.9 % (0.0-10.0); %Lymphocytes 9.7 % (21.0-51.0); %Monocytes 9.2 % (0.0-10.0); %Neutrophils 79.4 % (42.0-75.0); Hematocrit 27.2 % (42.0-52.0); Hemoglobin 8.7 g/dL (14.0-18.0); Mean Corpuscular Hemoglobin 26.0 pg (27.0-31.0); Mean Corpuscular Volume 81.4 fL (78.0-98.0); Platelet Count 236 10x3/uL (130-400); Red Blood Cell (RBC) Count 3.34 mill/uL (4.70-6.10); White Blood Cell (WBC) Count 5.78 10x3/uL (4.8-10.8)
[2025-04-26 12:50] LABS: ALT (SGPT) 16 U/L (Less than 45); AST (SGOT) 13 U/L (11-34); Albumin 3.0 g/dL (3.1-4.5); Alkaline Phosphatase 160 U/L (40-110); Anion Gap 14 mmol/L (10-20); BUN (Urea Nitrogen) 26 mg/dL (8.4-25.7); Bilirubin, Total 0.4 mg/dL (0.3-1.2); Calc. Creatinine Clearance 0 mL/min (70-130); Calcium 7.9 mg/dL (7.8-10.44); Carbon Dioxide 20 mmol/L (23-31); Chloride 106 mmol/L (98-107); Globulin 3.3 g/dL (2.4-3.5); Glucose 87 mg/dL (83-110); Magnesium 2.2 mg/dL (1.6-2.6); Potassium 5.0 mmol/L (3.5-5.1); Sodium 135 mmol/L (136-145)
[2025-04-26] MEDS ORDERED: cefTRIAXone (ROCEPHIN) 1 GM VIAL ONE (14:44)
== END 2025-04-26 21:19 | disposition short-term general hospital (02) ==
LOC: ERS 10:49
DX: J18.9 Pneumonia, unspecified organism (principal); I31.39 Other pericardial effusion (noninflammatory); J90 Pleural effusion, not elsewhere classified; I10 Essential (primary) hypertension; F17.200 Nicotine dependence, unspecified, uncomplicated
CPT/HCPCS: 71045; 71275; 80053; 83735; 83880; 84145; 85025; 93005; 94760; 96374; 99285; J0696; Q9967